=== PATIENT | female | born 1940 | race Caucasian/White ===

== ENCOUNTER 2017-10-17 04:15 | Inpatient (IN) | payer MEDICARE, MEDICAID ==
[2017-10-17 04:58] LABS: Troponin I 0.099 ng/mL (< 0.028)
[2017-10-17 06:33] VITALS: BMI 29.2
[2017-10-17] MEDS ORDERED: Ondansetron ODT 4 MG TAB SL PRN (06:53)
[2017-10-17] MEDS ORDERED: Ondansetron HCl/PF 4 MG/2 ML Vial IVP PRN ×2 (06:53→08:16)
[2017-10-17] MEDS ORDERED: Acetaminophen 325 MG TAB PO PRN (06:53)
[2017-10-17 07:49] LABS: Troponin I 0.412 ng/mL (< 0.028)
[2017-10-17] MEDS ORDERED: Ondansetron ODT 4 MG TAB PO PRN (08:16)
[2017-10-17] MEDS ORDERED: cloNIDine 0.1 MG TAB PO PRN (08:16)
[2017-10-17] MEDS ORDERED: hydrALAZINE 20 MG/ML VIAL SLOW IVP PRN (08:16)
[2017-10-17] MEDS: Famotidine 20 MG TAB PO SCH ×2 (08:53→20:32)
[2017-10-17] MEDS: Aspirin 325 MG TAB PO SCH (08:54)
--- NOTE | 2017-10-17 10:47 | HP ---
DATE OF ADMISSION: 10/17/2017 PRIMARY CARE PHYSICIAN: Dr. Ricci. CHIEF COMPLAINT: Chest and back pain. HISTORY OF PRESENT ILLNESS: This is a 77-year-old female who presents to [facility] Emergency Department in transfer from [facility] where she is a [facility] resident over the last 10 years who complained of sudden chest and mid back pain which awakened her from sleep approximately 1:00 a.m. on 10/17/2017. The patient states the pain was sharp, waking her from sleep, making her to assist with deeper breaths. The patient states she has had intermittent e pisodes similar to this over the last several weeks and has been treated with Maalox and Mylanta as w ell as Tylenol. The patient felt like she was experiencing reflux and heartburn symptoms and was dominique ated with the aforementioned medications. The patient denies any known history of coronary artery di sease or prior cardiac evaluations. The patient does state she has a significant history of intracra nial hemorrhage, likely hypertensive induced, undergoing acute surgical intervention with eventual ve ntriculostomy and IRRIGATOR SPRINKLING SYSTEM shunt placement. The patient was noted with dysphagia, mild aphasia and right-s ided hemiparesis requiring inpatient rehabilitation and subsequent long-term skilled care. The genaro nt has been a current resident of [facility] for approximately 10 years, receiving chey y therapy. The patient has had marked improvement in overall functional status and ambulating with u se of a rolling walker. Eating regular oral diet and overall improving clinically. The patient jayshree es taking chronic or daily aspirin, but has been given aspirin intermittently over the last several m onths. The patient denies any nitroglycerin use, but does state she has had elevated cholesterol lev els as well as hypertension, which has been controlled with medications. The patient did state she h ad associated nausea, shortness of breath and emesis with the chest pain episode. In the emergency r oom, the patient underwent general evaluation with EKG showing a left bundle branch block pattern. T he patient also underwent cardiac enzyme evaluation showing elevating levels between 0.010-0.412. Th e patient currently denies any current chest pain symptoms with stable vital signs. The patient did receive aspirin and nitroglycerin and was referred to the Hospitalist Service for admission. PAST MEDICAL HISTORY: 1. Chronic right hemiparesis, status post intracranial hemorrhage. 2. Hypertension. 3. Hyperlipidemia. 4. History of neurogenic bladder. 5. Gastroesophageal reflux disease. 6. Depression. 7. History of dysphagia, resolved. 8. History of GI bleed secondary to gastric ulcer. PAST SURGICAL HISTORY: 1. Status post PEG tube placement with subsequent removal. 2. Status post appendectomy. 3. Status post cholecystectomy. 4. Status post right frontal andrew hole placement with forward ventriculostomy. 5. Status post inferior tentorial craniotomy with evacuation of cerebellar hematoma 2007. CURRENT MEDICATIONS: Based on review of medication record from [facility]: 1. Lasix 20 mg 1 tab p.o. daily. 2. Norvasc 5 mg 1 tablet p.o. daily. 3. Hydralazine 25 mg 1 tab p.o. b.i.d. 4. Lisinopril 10 mg 1 tab p.o. b.i.d. 5. Metoprolol tartrate 50 mg 1 tab p.o. b.i.d. 6. Potassium chloride 20 mEq 1 tab p.o. b.i.d. 7. Dulcolax suppository 10 mg p.r.n. constipation. 8. Albuterol sulfate nebulized solution b.i.d. p.r.n. 9. Acetaminophen 500 mg 2 tabs p.o. q.4-6 hours p.r.n. 10. MiraLax 17 grams p.o. daily p.r.n. constipation. ALLERGIES: No known drug allergies. FAMILY HISTORY: Sister with coronary artery disease and breast cancer. Multiple brothers with coron shelley artery disease at an early age. SOCIAL HISTORY: The patient is , accompanied by her and [facility]. No current alcohol, tobacco or illicit drug use. Ambulates with use of a rolling walker . REVIEW OF SYSTEMS: The following complete review of systems was negative, unless otherwise mentioned in the HPI or below: Constitutional: Weight loss or gain, ability to conduct usual activities. Skin: Rash, itching. Eyes: Double vision, pain. ENT/Mouth: Nose bleeding, neck stiffness, pain, tenderness. Cardiovascular: Palpitations, dyspnea on exertion, orthopnea. Respiratory: Shortness of breath, wheezing, cough, hemoptysis, fever or night sweats. Gastrointestinal: Poor appetite, abdominal pain, heartburn, nausea, vomiting, constipation, or diarr hea. Genitourinary: Urgency, frequency, dysuria, nocturia. Musculoskeletal: Pain, swelling. Neurologic/Psychiatric: Anxiety, depression. Allergy/Immunologic: Skin rash, bleeding tendency. Otherwise negative except as stated per HPI. PHYSICAL EXAMINATION: VITAL SIGNS: On admission, blood pressure 147/74, pulse 68, respiratory rate 16, temperature 98 degr ees Fahrenheit, O2 saturation 96% on room air. GENERAL APPEARANCE: This is a 77-year-old female, alert and oriented x3, pleasant, convers ant, smiling, in no acute distress. HEENT: Pupils are equal, round, and reactive to light and accommodation. Extraocular muscles are in tact. No scleral icterus, no conjunctival injection. Nares patent. OP is clear. Patient is edentu lous. NECK: Supple, no cervical adenopathy, no thyromegaly, no carotid bruits, no JVD appreciated. Cervic al spine is with full active and passive range of motion. No meningeal signs appreciated. CHEST: Lungs are clear to auscultation bilaterally. CARDIOVASCULAR: S1, S2, without noted murmur. ABDOMEN: Rounded, soft, nontender, nondistended. Bowel sounds are positive in all four quadrants. There is no hepatosplenomegaly, no abdominal bruits, no rebound or guarding appreciated. EXTREMITIES: Warm and dry with good turgor. No clubbing, cyanosis or asymmetric edema appreciated. Pulses palpable distally at the dorsalis pedis, posterior tibial, and popliteal arteries bilaterally . Capillary refill less is than 2 seconds. NEUROLOGIC: Right upper extremity paresis noted. Right lower extremity with full active and passive range of motion. Rest of the cranial nerves II-XII are grossly intact. PERTINENT LABORATORY DATA AND X-RAY FINDINGS: Sodium 146, potassium 4.1, chloride 112, CO2 of 23, BU N 23, creatinine 0.88, estimated GFR 62, glucose 102, calcium 9.2. BNP 91. Troponin I ranged betwee n 0.010-0.412. CBC showed a white blood cell count of 7.5, hemoglobin 13.6, hematocrit 41, platelet count 280 with normal differential. EKG dated 10/17/2017 by my interpretation shows sinus mechanism with heart rates in the 70s. Attenuated R waves noted in the precordial leads. Left bundle branch b lock pattern noted. Normal axis. No acute ST-T wave changes appreciated. ASSESSMENT AND PLAN: 1. Chest pain. The patient will be observed on the telemetry unit. We will consult Cardiology Serv ice given troponin I elevation and potential for unstable angina. Currently, chest pain free. Conor nue aspirin 325 mg p.o. daily. Check fasting lipid profile. N.p.o. except medications and sips of w ater. Nitroglycerin 0.4 mg sublingually p.r.n. chest pain. 2. Elevated troponin I/question of non-ST elevation myocardial infarction. See #1 above. Consult C ardiology Service for evaluation. Likely patient will need left heart catheterization to further del ineate coronary anatomy. 3. Hypertension. Continue serial blood pressure monitoring. Resume home blood pressure regimen. 4. Status post intracranial hemorrhage with right hemiparesis. Stable currently. Continue symptoma tic and supportive management. PT for functional assessment. 5. Question of hyperlipidemia. Check fasting lipid profile. 6. Prophylaxis. Sequential compression devices while in bed. Pepcid 20 mg p.o. b.i.d. 7. Code status is FULL. Surrogate medical decision maker is patient's spouse.
[2017-10-17 11:15] LABS: Troponin I 0.542 ng/mL (< 0.028)
--- NOTE | 2017-10-17 11:59 | CON ---
DATE OF CONSULTATION: 10/17/2017 REASON FOR CONSULTATION: Chest pain, elevated troponin and symptoms suggesting unstable angina. HISTORY OF PRESENT ILLNESS: Ms. Ornelas is a very pleasant 77-year-old woman with no previous cardi ac history. She recently presented with chest pain. States the chest pain episode lasted 2 hours. It was relieved with aspirin. She did have associated nausea, vomiting, and shortness of breath. Afshin blackburn is currently asymptomatic. She also had a left bundle branch block. PAST MEDICAL HISTORY: Hypertension, brain trauma with surgery resulting in permanent left-sided sheba paresis after intracranial hemorrhage 11 years ago, hypertension, hyperlipidemia, acid reflux, depres mode, GI bleed and dysphagia. PAST SURGICAL HISTORY: Appendectomy, cholecystectomy, previous andrew hole with ventriculostomy. HOME MEDICATIONS: Include Lasix, Norvasc, hydralazine, lisinopril, metoprolol, potassium, Dulcolax, albuterol, acetaminophen, MiraLax. ALLERGIES: None. SOCIAL HISTORY: Currently . She currently resides in a care center. REVIEW OF SYSTEMS: Ten-point review of systems is reviewed and as above, otherwise negative. PHYSICAL EXAMINATION: GENERAL: Patient is a pleasant male who is in no acute distress. The patient appears in her stated age. VITAL SIGNS: Blood pressure 108/64, pulse 71, temperature 98.4. NEUROLOGIC: Left-sided upper and lower weakness. HEENT: Sclerae without icterus. Mouth has moist mucous membranes with normal pallor. NECK: No JVD. Carotid upstroke brisk. No bruits bilaterally. LUNGS: Clear to auscultation with unlabored respirations. BACK: No scoliosis or kyphosis. CARDIAC: Regular rate and rhythm with normal S1 and S2. No S3 or S4 noted. No significant rubs, murmurs, thrills, or gallops noted throughout the precordium. PMI is not displa davidson. There is no parasternal heave. ABDOMEN: Soft, nontender, nondistended. No peritoneal signs present. No hepatosplenomegaly. No ab normal striae. EXTREMITIES: 2+ femoral and 2+ dorsalis pedis pulses. No cyanosis, clubbing, or edema. SKIN: No gross abnormalities. PERTINENT LABORATORY DATA AND IMAGING DATA: Peak troponin 0.542. EKG showed left bundle branch bloc k. IMPRESSION: 1. Unstable angina. 2. Left bundle branch block. 3. Hypertension. 4. Previous history of intracranial bleed. RECOMMENDATIONS: At this point, her symptoms are strongly suggestive of unstable angina. She did skelton ve documented left bundle branch block 10 years ago. She was seen and evaluated by Dr. Dung paredes at that time. Would recommend coronary angioplasty plus PCI. I discussed the procedure in full d etail. The risks included but not limited to the following: , stroke, LA, need for emergency s urgery, loss of limb, bleeding, and infection, as well as a reaction to the dye causing kidney failur e and needing long-term dialysis. Other risks include acute stent thrombosis and restenosis, vessel d issection, perforation, need for emergency surgery in addition to distal embolization causing chronic foot discomfort as well as amputation. I also discussed drug-coated versus nondrug coated stent earlene cement. There are no contraindications for Plavix therapy. We will discuss with Neuro employee communications coordinator to ciro melara anticoagulation therapy is not contraindicated. She did have cerebral hemorrhage. Recommendation s pending the above.
[2017-10-17] MEDS ORDERED: Nitroglycerin 2% Ointment 1 INCH/1 GM Packet TOP SCH (14:00)
--- NOTE | 2017-10-17 15:50 | CT ---
CT BRAIN: Date: 10/17/17 PROVIDED CLINICAL HISTORY: History of intracerebral hemorrhage. FINDINGS: Comparison made with the examination performed 11/25/07. The ventricular system is nondilated. Right parietal ventriculostomy catheter is again noted. Extensi ve encephalomalacia is noted involving the right cerebral hemisphere. Postoperative changes are seen involving the occipital skull in the midline. There is no evidence for intracranial hemorrhage or mas s effect. Chronic white matter ischemic changes are redemonstrated. The osseous structures demonstrat e no concerning osteoblastic or osteolytic lesions. IMPRESSION: No evidence for intracranial hemorrhage or mass effect. POS: [facility]
[2017-10-17] MEDS: Carvedilol 6.25 MG TAB PO SCH (20:32)
[2017-10-17] MEDS: Enoxaparin Sodium 80 MG/0.8 ML SYRINGE SC SCH (20:34)
[2017-10-18 04:59] LABS: Anion Gap 10 mmol/L (10-20); BUN (Urea Nitrogen) 17 mg/dL (9.8-20.1); Calc. Creatinine Clearance 77 mL/min (70-130); Calcium 8.8 mg/dL (7.8-10.44); Carbon Dioxide 25 mmol/L (23-31); Chloride 112 mmol/L (98-107); Estimated GFR-MDRD 68; Glucose 99 mg/dL (83-110); Potassium 3.7 mmol/L (3.5-5.1); Sodium 143 mmol/L (136-145)
[2017-10-18 05:25] LABS: Band 1 % (5-11); Eosinophils 2 % (0-10); Hemoglobin 12.1 g/dL (12.0-16.0); Lymphocytes 52 % (21-51); MDiff Complete? YES; Mean Corpuscular HGB CONC 33.7 g/dL (32.0-36.0); Mean Corpuscular Hemoglobin 33.2 pg (27.0-31.0); Mean Corpuscular Volume 98.6 fl (81.0-99.0); Mean Platelet Volume 6.9 fL (7.4-10.4); Monocytes 8 % (0-10); Neutrophil 36 % (42-75); PLT Morphology Comment Appears Adequate; Platelet Count 229 thou/uL (130-400); RBC Distribution Width 12.1 % (11.5-14.5); RBC Morphology Normal; Reactive Lymphocytes 1 % (0-10); Red Blood Cell (RBC) Count 3.63 mill/uL (4.20-5.40); White Blood Cell (WBC) Count 6.4 thou/uL (4.8-10.8)
--- NOTE | 2017-10-18 07:55 | PDOC.PN ---
- Subjective Encounter Start Date: 10/18/17 Encounter Start Time: 07:40 Subjective: f/u for unstable angina and ?NSTEMI. Plan for heart cath and PCI currently -: on Lovenox, Coreg, ASA. No current sx or CP. - Objective MAR Reviewed: Yes Vital Signs & Weight: Vital Signs (12 hours) Temp Pulse Resp BP Pulse Ox 10/18/17 04:00 98.4 F 68 18 111/72 96 10/18/17 00:00 98.2 F 75 16 126/73 93 L 10/17/17 20:50 98.2 F 70 16 97 10/17/17 20:30 70 148/97 H 10/17/17 20:16 97 10/17/17 19:46 98.2 F 73 16 97 Weight Weight 188 lb I&O: 10/17/17 10/18/17 10/19/17 05:59 06:59 06:59 Intake Total Balance Result Diagrams: 10/18/17 04:27 10/18/17 04:27 Additional Labs: Laboratory Tests 10/17/17 10/17/17 10/17/17 04:25 07:05 10:34 Troponin I 0.099 H 0.412 H* 0.542 H* Radiology Reviewed by me: Yes (2D echo - EF 50-55%, diast dysfxn, hypokinetic inf wall) EKG Reviewed by me: Yes (Tele - SR with LBBB(old)) Phys Exam - Physical Examination Constitutional: NAD HEENT: PERRLA, oral pharynx no lesions Neck: no JVD, supple Respiratory: no wheezing, clear to auscultation bilateral Cardiovascular: RRR Gastrointestinal: soft, non-tender, no distention, positive bowel sounds Musculoskeletal: no edema, pulses present RUE paresis(chronic) Neurological: normal sensation, moves all 4 limbs Psychiatric: A&O x 3 Skin: normal turgor, cap refill <2 seconds Dx/Plan (1) Unstable angina Status: Acute Comment: Continue Lovenox, ASA, Coreg, plan for heart catheterization and ?PCI likely 10/19/17 (2) NSTEMI (non-ST elevated myocardial infarction) Code(s): I21.4 - NON-ST ELEVATION (NSTEMI) MYOCARDIAL INFARCTION Status: Acute Comment: See #1 (3) Dyslipidemia Code(s): E78.5 - HYPERLIPIDEMIA, UNSPECIFIED Status: Chronic Comment: Lipid profile this am, Lipitor 40mg HS (4) HTN (hypertension) Code(s): I10 - ESSENTIAL (PRIMARY) HYPERTENSION Status: Chronic Qualifiers: Hypertension type: essential hypertension Qualified Code(s): I10 - Essential (primary) hypertension Comment: Stable currently, adjust BP regimen prior to d/c (5) History of intracranial hemorrhage Code(s): Z86.79 - PERSONAL HISTORY OF OTHER DISEASES OF THE CIRCULATORY SYSTEM Status: Chronic Comment: s/p ICH 10 years ago, stable currently - Plan plan discussed w/ family, marriage and family social worker, out of bed/ambulate, DVT proph w/SCDs Continue Lovenox 80mg sc q12h -: Continue ASA 325mg daily -: Lipitor 40mg HS -: Plan for heart cath in 24h -: AM lab: BMP * .
[2017-10-18 08:25] LABS: Cardiac Risk 4.8 (Less than 4.5)
[2017-10-18] MEDS: Aspirin 325 MG TAB PO SCH (08:30)
[2017-10-18] MEDS: Carvedilol 6.25 MG TAB PO SCH ×2 (08:30→21:59)
[2017-10-18] MEDS: Famotidine 20 MG TAB PO SCH ×2 (08:30→21:59)
[2017-10-18] MEDS: Enoxaparin Sodium 80 MG/0.8 ML SYRINGE SC SCH ×2 (08:30→21:59)
--- NOTE | 2017-10-18 13:06 | CON ---
DATE OF SERVICE: 10/18/2017 SUBJECTIVE: Ms. Ornelas is doing well. No chest pain or pressure noted. CT scan of the head was n egative for bleed or abnormalities. OBJECTIVE: VITAL SIGNS: Blood pressure 152/77, pulse 77, temperature 98.5. LUNGS: Clear to auscultation. CARDIAC: Regular rate and rhythm. ABDOMEN: Soft, nontender and nondistended. EXTREMITIES: No edema. IMPRESSION: Non-Q wave myocardial infarction. RECOMMENDATIONS: Proceed with angiography in the morning. We will proceed with a drug-coated stent if needed. Further recommendations pending the above.
[2017-10-18] MEDS ORDERED: Communication Order-Pharmacy FS SCH (16:15)
[2017-10-18] MEDS ORDERED: Iopamidol 370 76% 100 ML VIAL ONE (16:48)
[2017-10-18] MEDS ORDERED: Iopamidol 370 76% 50 ML VIAL FS ONE (16:48)
[2017-10-18] MEDS: Nitroglycerin 0.4 MG TAB (25 Tab Bottle) PO PRN ×2 (18:47→18:51)
[2017-10-18] MEDS: Sodium Chloride 0.9% 1,000 ML IV SCH (18:48)
--- NOTE | 2017-10-18 19:13 | PDOC.EVN ---
Event Note - Event Note Event Note: Patient was Called calli isbell at 1850, and Paient was c/o chest pain and monitor showed Torsade , pt started vomiting and lost her pulse, She was given a Defibrillator shock and 2 gm of Magnesium was given , Dr. Bishop came to the Code and discussed with lalo and Activated the trestle mainternance laborer for emergent cath. pt got intubated and her pulse was back after the shock. No CPR was needed. Pt was awake and did not loose her consciousness.
[2017-10-18] MEDS ORDERED: Midazolam HCl 2 mg/2 ml Vial ONE (19:45)
[2017-10-18] MEDS ORDERED: Nitroglycerin 50 MG/250 ML BOT 250 ML ONE (19:47)
[2017-10-18] MEDS ORDERED: Nitroglycerin 100MG/250ML BOT 250 ML ONE (19:48)
[2017-10-18] MEDS ORDERED: Heparin 10,000 UNITS/1 ML VIAL ONE (19:58)
[2017-10-18] MEDS ORDERED: Metoprolol Tartrate 5 MG/5 ML VIAL ONE (19:59)
[2017-10-18] MEDS ORDERED: Clopidogrel Bisulfate 300 MG TAB ONE (20:17)
[2017-10-18] MEDS ORDERED: Sodium Chloride 0.9% 1,000 ML IV SCH (20:30)
[2017-10-18] MEDS ORDERED: Propofol 1,000 MG/100 ML VIAL IV ONE (20:44)
[2017-10-18] MEDS ORDERED: Atropine Sulfate 1 mg/10 ml Syringe ONE (20:50)
[2017-10-18] MEDS ORDERED: Magnesium 5 GM/10 ML Abboject SYRINGE ONE (20:50)
[2017-10-18] MEDS ORDERED: Calcium Chloride 1 GM/10 ML Abboject SYRINGE ONE (20:50)
[2017-10-18 21:10] LABS: Albumin 3.7 g/dL (3.4-4.8)
[2017-10-18 21:12] LABS: Calcium 8.3 mg/dL (7.8-10.44); Chloride 113 mmol/L (98-107); Potassium 3.1 mmol/L (3.5-5.1); Sodium 144 mmol/L (136-145)
[2017-10-18 21:13] LABS: Globulin 3.5 g/dL (2.4-3.5); Glucose 156 mg/dL (83-110); Protein, Total 7.2 g/dL (6.0-8.3)
[2017-10-18 21:14] LABS: Anion Gap 16 mmol/L (10-20); Carbon Dioxide 18 mmol/L (23-31)
[2017-10-18 21:15] LABS: Bilirubin, Total 1.1 mg/dL (0.2-1.2)
[2017-10-18 21:16] LABS: Alkaline Phosphatase 126 U/L (40-150); Calc. Creatinine Clearance 78 mL/min (70-130); Estimated GFR-MDRD 69
[2017-10-18 21:17] LABS: BUN (Urea Nitrogen) 14 mg/dL (9.8-20.1)
[2017-10-18 21:18] LABS: AST (SGOT) 129 U/L (5-34)
[2017-10-18 21:19] LABS: ALT (SGPT) 119 U/L (8-55)
[2017-10-18 21:22] LABS: Actual Bicarbonate (HCO3a) 18.3 mEq/L (22-26); CO2 Tension 26.7 mmHg (35.0-45.0); pH, Arterial 7.45 (7.35-7.45)
[2017-10-18 21:22] LABS: CKMB 4.6 ng/mL (0-6.6)
[2017-10-18 21:23] LABS: Base Excess (BEa) -4.1 mEq/L (0 (+/-) 2.5); Calcium, Ionized 1.1 mmol/L (1.12-1.30); Hematocrit-ABG 40.1 % (36.0-47.0); Hemoglobin (Hb) 13.6 g/dL (12.0-16.0); Puncture Site LINE
[2017-10-18 21:24] LABS: ALV-art Gradient 299.625 (0-20)
[2017-10-18 21:26] LABS: Troponin I 0.307 ng/mL (< 0.028)
--- NOTE | 2017-10-18 21:33 | PRG ---
CRITICAL CARE NOTE Ms. Ornelas went into torsades today. CODE was called. She was given epinephrine and was resuscita sha successfully. She was intubated for protection of airway. Given elevated troponin and symptoms suggesting angina with nausea, vomiting, and chest pain upon pre sentation I would decide to proceed with urgent coronary angiography with possible PCI. Angiography suggested diffuse disease present. She had an LAD with diffuse 50% stenosis with calcifi cation present. There was a focal area of 80% stenosis with significant tortuosity present. The OM branch also has diffuse disease. There was an OM branch that appeared occluded at the ostium with co llaterals noted from the LAD. This was not felt to be approachable percutaneously due to the locatio n of the lesion and compromise of a very large circumflex artery. The right coronary artery also had 90% stenosis in the proximal region, but also appeared very small. Successful stent placement was n oted to the LAD. The patient was transferred to the ICU in a critical guarded condition.
[2017-10-18] MEDS ORDERED: Lorazepam 2 MG/ML VIAL SLOW IVP PRN (21:41)
[2017-10-18] MEDS ORDERED: DISCONTINUE PREVIOUS NARCOTIC PAIN MEDICATIONS AND BENZODIAZEPINES FS SCH (21:41)
[2017-10-18] MEDS ORDERED: fentaNYL Citrate/PF 2,000 MCG in Sodium Chloride 0.9% 60 ML IV SCH (21:41)
[2017-10-18] MEDS ORDERED: Morphine 2 MG/ML SYRINGE SLOW IVP PRN (21:41)
[2017-10-18] MEDS ORDERED: Propofol 1,000 MG/100 ML VIAL IV PRN (21:41)
[2017-10-18] MEDS ORDERED: Esmolol 2,500 MG/NS 250 ML 250 ML IVPB SCH (21:45)
[2017-10-18] MEDS: Atorvastatin Calcium 40 MG TAB PO SCH (21:59)
[2017-10-19] MEDS ORDERED: Potassium Chloride 40 MEQ in Sodium Chloride 0.9% 250 ML 250 ML IVPB SCH (02:00)
[2017-10-19 04:01] LABS: #Eosinphils 0.1 thou/uL (0.0-0.7); #Lymphocytes 1.9 thou/uL (1.20-3.40); #Monocytes 1.4 thou/uL (0.11-0.59); #Neutrophils 7.3 thou/uL (1.40-6.50); %Basophils 0.1 % (0.0-1.0); %Eosinophils 0.5 % (0.0-10.0); %Monocytes 12.8 % (0.0-10.0); %Neutrophils 68.6 % (42.0-75.0); Hemoglobin 12.5 g/dL (12.0-16.0); Mean Corpuscular HGB CONC 35.1 g/dL (32.0-36.0); Mean Corpuscular Hemoglobin 33.5 pg (27.0-31.0); Mean Corpuscular Volume 95.4 fl (81.0-99.0); Mean Platelet Volume 6.6 fL (7.4-10.4); Platelet Count 286 thou/uL (130-400); RBC Distribution Width 12.2 % (11.5-14.5); Red Blood Cell (RBC) Count 3.73 mill/uL (4.20-5.40); White Blood Cell (WBC) Count 10.6 thou/uL (4.8-10.8)
[2017-10-19 04:06] LABS: ALT (SGPT) 95 U/L (8-55); AST (SGOT) 83 U/L (5-34); Albumin 3.4 g/dL (3.4-4.8); Alkaline Phosphatase 106 U/L (40-150); Anion Gap 12 mmol/L (10-20); BUN (Urea Nitrogen) 14 mg/dL (9.8-20.1); Bilirubin, Total 0.6 mg/dL (0.2-1.2); Calc. Creatinine Clearance 73 mL/min (70-130); Calcium 8.2 mg/dL (7.8-10.44); Carbon Dioxide 20 mmol/L (23-31); Chloride 116 mmol/L (98-107); Estimated GFR-MDRD 64; Globulin 3.1 g/dL (2.4-3.5); Glucose 134 mg/dL (83-110); Potassium 4.2 mmol/L (3.5-5.1); Protein, Total 6.5 g/dL (6.0-8.3); Sodium 144 mmol/L (136-145)
[2017-10-19 04:14] LABS: CKMB 12.4 ng/mL (0-6.6); Troponin I 2.851 ng/mL (< 0.028)
[2017-10-19] MEDS ORDERED: Nitroglycerin 50 MG/250 ML BOT 250 ML IVPB SCH (05:00)
[2017-10-19] MEDS: Carvedilol 6.25 MG TAB PO SCH ×2 (08:10→20:33)
[2017-10-19] MEDS: Famotidine 20 MG TAB PO SCH ×2 (08:10→20:34)
[2017-10-19] MEDS: Clopidogrel Bisulfate 75 MG TAB PO SCH (08:10)
[2017-10-19] MEDS: Aspirin 325 MG TAB PO SCH (08:10)
--- NOTE | 2017-10-19 08:53 | RAD ---
CHEST 1 VIEW: HISTORY: Dyspnea. Intubated. COMPARISON: 10/17/17. FINDINGS: Cardiac silhouette is magnified and enlarged. Pulmonary vasculature is unremarkable. Mediastinum is midline with aortic calcification. The tip of an endotracheal catheter overlies the thoracic inlet. Nasogastric tube descends to the stomach. manager of software leads overlie the chest. IMPRESSION: Endotracheal catheter and nasogastric tube are in good radiographic position. POS: [facility]
--- NOTE | 2017-10-19 09:45 | PDOC.PN ---
- Subjective Encounter Start Date: 10/19/17 Encounter Start Time: 09:43 Subjective: no chest pain. post cath, PCI to LAD - Objective MAR Reviewed: Yes Vital Signs & Weight: Vital Signs (12 hours) Temp Pulse Resp BP Pulse Ox 10/19/17 09:30 83 24 H 97 10/19/17 08:10 123/54 L 10/19/17 08:00 99.2 F 16 10/19/17 07:42 96 10/19/17 07:36 85 123/54 L 10/19/17 06:00 14 10/19/17 04:00 97.9 F 14 10/19/17 02:00 14 10/19/17 00:00 97.6 F 14 10/18/17 22:00 14 145/81 H 10/18/17 21:59 137/80 Weight Weight 191 lb 9.307 oz Most Recent Monitor Data Heart Rate from ECG 82 NIBP 107/53 NIBP BP-Mean 69 Respiration from ECG 17 SpO2 95 I&O: 10/18/17 10/19/17 10/20/17 06:59 06:59 06:59 Intake Total 1910 Output Total 1910 65 Balance 0 -65 Result Diagrams: 10/19/17 03:32 10/19/17 03:32 Phys Exam - Physical Examination Neck: no JVD Respiratory: clear to auscultation bilateral Cardiovascular: RRR, no significant murmur Gastrointestinal: soft, positive bowel sounds Musculoskeletal: edema present Dx/Plan (1) CAD (coronary artery disease) of artery bypass graft Code(s): I25.810 - ATHEROSCLEROSIS OF CABG W/O ANGINA PECTORIS Status: Acute Qualifiers: [place] vs. transplanted heart: [place] heart Associated angina: with unstable angina Qualified Code(s): I25.700 - Atherosclerosis of coronary artery bypass graft(s), unspecified, with unstable angina pectoris (2) Torsades de pointes Code(s): I47.2 - VENTRICULAR TACHYCARDIA Status: Acute (3) Hematuria Code(s): R31.9 - HEMATURIA, UNSPECIFIED Status: Acute Qualifiers: Hematuria type: unspecified type Qualified Code(s): R31.9 - Hematuria, unspecified (4) NSTEMI (non-ST elevated myocardial infarction) Code(s): I21.4 - NON-ST ELEVATION (NSTEMI) MYOCARDIAL INFARCTION Status: Acute Comment: See #1 (5) Unstable angina Status: Acute Comment: Continue Lovenox, ASA, Coreg, plan for heart catheterization and ?PCI likely 10/19/17 (6) Dyslipidemia Code(s): E78.5 - HYPERLIPIDEMIA, UNSPECIFIED Status: Chronic Comment: Lipid profile this am, Lipitor 40mg HS (7) HTN (hypertension) Code(s): I10 - ESSENTIAL (PRIMARY) HYPERTENSION Status: Chronic Qualifiers: Hypertension type: essential hypertension Qualified Code(s): I10 - Essential (primary) hypertension Comment: Stable currently, adjust BP regimen prior to d/c - Plan cont ASA, statin, coreg -: discuss with cardiology -: PT/PTT/ urine C&S * .
[2017-10-19 10:52] LABS: INR-International Normal Ratio 1.1; PTT 37.8 SEC (22.9-36.1); Prothrombin Time 14.8 SEC (12.0-14.7)
[2017-10-19 10:53] LABS: Glucose, Urine (Dipstick) Negative (Negative); Protein, Urine (Dipstick) 100 mg/dL (Neg-Trace)
[2017-10-19 10:54] LABS: Clarity Opaque (Clear)
[2017-10-19 11:01] LABS: Bilirubin Unable to Interpret (Negative); Nitrite Unable to Interpret (Negative)
[2017-10-19 11:02] LABS: Blood, Urine Large (Negative); Leukocyte Moderate (Negative)
--- NOTE | 2017-10-19 11:03 | PRG ---
DATE OF SERVICE: 10/19/2017 Ms. Ornelas is doing well. No current complaints. She is currently awake, but still intubated. Sh e is following commands normally. Peak troponin was 2. PHYSICAL EXAMINATION: VITAL SIGNS: Blood pressure 122/47, pulse 70. Temperature afebrile. LUNGS: Clear to auscultation. CARDIAC: Regular rate and rhythm. ABDOMEN: Soft, nontender, nondistended. EXTREMITIES: No edema. PERTINENT LABS: Hemoglobin 12.5. Peak troponin 2.8 with CK-MB of 12.4, creatinine 0.8. IMPRESSION: 1. Torsades de pointes. 2. Coronary artery disease. 3. Status post stent placement. RECOMMENDATIONS: Ms. Ornelas did have a fairly significant episode of torsades de pointes. This ma y have been ischemic driven. A stent to the LAD was performed. The LAD does have collaterals noted to have an occluded large OM branch. Her magnesium and potassium level are within normal limits. She was not bradycardic during the episo de. It may be prudent to proceed with LifeVest. She will likely qualify given her recent event. Wi ll order a LifeVest for patient. She has had hematuria, and will continue to monitor. This may have been due to heparin. We will continue Plavix, carvedilol, atorvastatin and aspirin. One of my colleagues will follow in my absence.
[2017-10-19 11:04] LABS: RBC/HPF GREATER THAN 50-TNTC HPF (0-3); pH, Urine 7.5 (5.0-9.0)
[2017-10-19 11:05] LABS: Bacteria/HPF 2+ HPF (None Seen); Hyaline Casts/LPF NONE SEEN LPF (0-3 Hyaline); Squamous Epithelial 0-3 HPF (0-3)
--- NOTE | 2017-10-19 13:35 | CON ---
DATE OF CONSULTATION: 10/19/2017 Ms. Ornelas is a 77-year-old female who had torsades and was intubated. I was consulted to assist i n her ICU management. She was awake and alert when I evaluated her this morning. She had a coronary stent placed yesterday. She still had some rhythm disturbances. She has been hem odynamically stable, however. PAST MEDICAL HISTORY: 1. Hypertension. 2. History of left hemiparesis from an intracranial hemorrhage. 3. History of hypertension. 4. History of hyperlipidemia. 5. History of reflux disease. 6. Gastrointestinal bleed in the past. 7. History of an appendectomy. 8. History of a cholecystectomy. 9. History of a andrew hole and ventriculostomy. SOCIAL HISTORY: She is nonsmoker, nondrinker, does not use drugs. ALLERGIES: She has no drug allergies. FAMILY HISTORY: Negative for lung disease at an early age. MEDICATIONS: Prior to admission, she was on Lasix, Norvasc, hydralazine, lisinopril, metoprolol, pot assium, Dulcolax, albuterol and MiraLax. REVIEW OF SYSTEMS: Twelve point review of systems not obtainable. Her was in the room and h is report of the review of systems was negative. PHYSICAL EXAMINATION: GENERAL: She is very pleasant, in no distress. VITAL SIGNS: She is afebrile, heart rate 76, blood pressure 107/46, respiratory rates in the teens. HEENT: Pupils are equal. Sclerae is anicteric. LUNGS: Clear. HEART: Regular rhythm. S1 and S2 are normal. ABDOMEN: Soft and nontender. EXTREMITIES: No clubbing, cyanosis, or edema. She does move her right upper extremity. NEURO: Otherwise, her neurological exam is nonfocal. LABORATORY AND X-RAY FINDINGS: Chest radiograph is clear. I reviewed this. White count is 10.6, hemoglobin 12.5, platelets 286. Sodium 144, potassium 4.2, chloride 116, bicarb torito 20, BUN 14, creatinine 0.86. IMPRESSION AND PLAN: Status post torsades with intubation. She is clinically stable at this point i n time. Cardiology is comfortable with extubating her. She met criteria for extubation. This has s ubsequently been done. We will continue to watch her in the Critical Care Unit. Critical care time 30 minutes.
[2017-10-19] MEDS: Sodium Chloride 0.9% 1,000 ML IV SCH (14:19)
[2017-10-19] MEDS: Atorvastatin Calcium 40 MG TAB PO SCH (20:34)
[2017-10-20] MEDS: Sodium Chloride 0.9% 1,000 ML IV SCH ×2 (02:10→06:17)
--- NOTE | 2017-10-20 08:58 | PDOC.PN ---
- Subjective Encounter Start Date: 10/20/17 Encounter Start Time: 08:56 Subjective: alert, no chest pain or sob - Objective MAR Reviewed: Yes Vital Signs & Weight: Vital Signs (12 hours) Temp Pulse Ox 10/20/17 07:00 98.4 F 10/20/17 04:00 98.8 F 10/20/17 02:53 93 L 10/20/17 00:00 98.9 F Weight Weight 193 lb 5.526 oz Most Recent Monitor Data Heart Rate from ECG 94 NIBP 147/77 NIBP BP-Mean 90 Respiration from ECG 19 SpO2 92 I&O: 10/19/17 10/20/17 10/21/17 06:59 06:59 06:59 Intake Total 0 3050 Output Total 1910 635 175 Balance 0 2415 -175 Result Diagrams: 10/19/17 03:32 10/19/17 03:32 Phys Exam - Physical Examination Constitutional: NAD Neck: no JVD Respiratory: clear to auscultation bilateral Cardiovascular: RRR, no significant murmur Gastrointestinal: soft, positive bowel sounds Musculoskeletal: no edema Dx/Plan (1) CAD (coronary artery disease) of artery bypass graft Code(s): I25.810 - ATHEROSCLEROSIS OF CABG W/O ANGINA PECTORIS Status: Acute Qualifiers: [place] vs. transplanted heart: [place] heart Associated angina: with unstable angina Qualified Code(s): I25.700 - Atherosclerosis of coronary artery bypass graft(s), unspecified, with unstable angina pectoris (2) Torsades de pointes Code(s): I47.2 - VENTRICULAR TACHYCARDIA Status: Acute (3) Hematuria Code(s): R31.9 - HEMATURIA, UNSPECIFIED Status: Acute Qualifiers: Hematuria type: unspecified type Qualified Code(s): R31.9 - Hematuria, unspecified (4) NSTEMI (non-ST elevated myocardial infarction) Code(s): I21.4 - NON-ST ELEVATION (NSTEMI) MYOCARDIAL INFARCTION Status: Acute Comment: See #1 (5) Unstable angina Status: Acute Comment: Continue Lovenox, ASA, Coreg, plan for heart catheterization and ?PCI likely 10/19/17 (6) Dyslipidemia Code(s): E78.5 - HYPERLIPIDEMIA, UNSPECIFIED Status: Chronic Comment: Lipid profile this am, Lipitor 40mg HS (7) HTN (hypertension) Code(s): I10 - ESSENTIAL (PRIMARY) HYPERTENSION Status: Chronic Qualifiers: Hypertension type: essential hypertension Qualified Code(s): I10 - Essential (primary) hypertension Comment: Stable currently, adjust BP regimen prior to d/c - Plan urine still pink, PT/PTT normal, urine C&S neg so far. junior Camarena -: cont asa, statin, coreg, plavix -: move to tele?, discuss with cardiology * .
[2017-10-20] MEDS: Aspirin 325 MG TAB PO SCH (09:42)
[2017-10-20] MEDS: Clopidogrel Bisulfate 75 MG TAB PO SCH (09:42)
[2017-10-20] MEDS: Carvedilol 6.25 MG TAB PO SCH ×2 (09:43→21:16)
[2017-10-20] MEDS: Famotidine 20 MG TAB PO SCH (09:43)
--- NOTE | 2017-10-20 10:52 | PRG ---
DATE OF SERVICE: 10/20/2017 SERVICE: Pulmonary Medicine INTERVAL HISTORY: The patient is doing great from a cardiovascular and respiratory standpoint. She denies any chest pain or shortness of breath. Otherwise, there has been no interval change to her co ndition. She is breathing comfortably on room air. She is sitting in a bedside chair and demonstrat es improving strength. She is not quite back to baseline, but she is moving in that direction. Ther e were no overnight events. PHYSICAL EXAMINATION: VITAL SIGNS: Afebrile, pulse 81, blood pressure 134/54, respirations 22, saturation 94% on room air. GENERAL: The patient is awake, alert, in no apparent distress. LUNGS: Excellent air entry. Minimal dependent crackles are present. There is no prolonged expirato ry phase or wheezing. HEART: Normal rate, regular. ABDOMEN: Soft, nontender, nondistended. Bowel sounds are positive. MUSCULOSKELETAL: No cyanosis or clubbing. There is 2+ pitting in the bilateral lower extremities, w hich appears to be much improved. NEUROLOGIC: Grossly nonfocal. GENITOURINARY: Cedillo catheter in place. LABORATORY: Troponin went up to 2.85. Urine culture is negative. ASSESSMENT: 1. Coronary artery disease, status post percutaneous coronary intervention. 2. Torsades de pointes, resolved. 3. Acute hypoxic respiratory failure secondary to ventricular tachycardia arrest, resolved. PLAN: The patient is doing fantastic at this time. She had no significant events overnight on the t elemetry monitor. As such, we will transition her out of the ICU to the telemetry floor. Pulmonary Critical Care will continue to follow while the patient remains in this location.
[2017-10-20] MEDS: Atorvastatin Calcium 40 MG TAB PO SCH (21:16)
[2017-10-21] MEDS: Acetaminophen 500 MG TAB PO PRN ×3 (01:40→16:16)
--- NOTE | 2017-10-21 07:37 | PDOC.PN ---
- Subjective Encounter Start Date: 10/21/17 Encounter Start Time: 07:36 Subjective: cant sleep with lifevest - Objective MAR Reviewed: Yes Vital Signs & Weight: Vital Signs (12 hours) Temp Pulse Resp BP BP Pulse Ox 10/21/17 04:49 98.2 F 87 18 136/62 94 L 10/20/17 21:40 97.6 F 102 H 16 10/20/17 21:30 99.4 F 90 16 154/66 H 96 10/20/17 21:16 134/54 L Weight Weight 195 lb 3.2 oz Most Recent Monitor Data Heart Rate from ECG 86 NIBP 128/77 NIBP BP-Mean 83 Respiration from ECG 18 SpO2 95 I&O: 10/20/17 10/21/17 10/22/17 06:59 06:59 06:59 Intake Total 3050 720 Output Total 635 365 Balance 2415 355 Result Diagrams: 10/19/17 03:32 10/19/17 03:32 Phys Exam - Physical Examination Neck: no JVD Respiratory: clear to auscultation bilateral Cardiovascular: RRR, no significant murmur Gastrointestinal: soft, non-tender, positive bowel sounds Musculoskeletal: no edema, pulses present Dx/Plan (1) CAD (coronary artery disease) of artery bypass graft Code(s): I25.810 - ATHEROSCLEROSIS OF CABG W/O ANGINA PECTORIS Status: Acute Qualifiers: [place] vs. transplanted heart: [place] heart Associated angina: with unstable angina Qualified Code(s): I25.700 - Atherosclerosis of coronary artery bypass graft(s), unspecified, with unstable angina pectoris (2) Torsades de pointes Code(s): I47.2 - VENTRICULAR TACHYCARDIA Status: Acute (3) Hematuria Code(s): R31.9 - HEMATURIA, UNSPECIFIED Status: Acute Qualifiers: Hematuria type: unspecified type Qualified Code(s): R31.9 - Hematuria, unspecified (4) NSTEMI (non-ST elevated myocardial infarction) Code(s): I21.4 - NON-ST ELEVATION (NSTEMI) MYOCARDIAL INFARCTION Status: Acute Comment: See #1 (5) Unstable angina Status: Acute Comment: Continue Lovenox, ASA, Coreg, plan for heart catheterization and ?PCI likely 10/19/17 (6) Dyslipidemia Code(s): E78.5 - HYPERLIPIDEMIA, UNSPECIFIED Status: Chronic Comment: Lipid profile this am, Lipitor 40mg HS (7) HTN (hypertension) Code(s): I10 - ESSENTIAL (PRIMARY) HYPERTENSION Status: Chronic Qualifiers: Hypertension type: essential hypertension Qualified Code(s): I10 - Essential (primary) hypertension Comment: Stable currently, adjust BP regimen prior to d/c - Plan cont asa,statin, coreg, plavix, etc -: discuss with cardiology -: DC today? * .
[2017-10-21] MEDS: Aspirin 325 MG TAB PO SCH (08:37)
[2017-10-21] MEDS: Carvedilol 6.25 MG TAB PO SCH (08:37)
[2017-10-21] MEDS: Clopidogrel Bisulfate 75 MG TAB PO SCH (08:37)
--- NOTE | 2017-10-21 08:55 | PQF ---
CLINICAL DOCUMENTATION IMPROVEMENT CLARIFICATION FORM: ICD-10 Updated PLEASE DO AN ADDENDUM TO THE PROGRESS NOTE WITH ANY DOCUMENTATION UPDATES OR ADDITIONS AND CARRY THROUGH TO DC SUMMARY. THANK YOU. DATE: 10/21 ATTN: DR. JEOVANNY HUGO Please exercise your independent, professional judgment in responding to the clarification form. Clinical indicators are provided on the bottom of this form for your review. Please check appropriate box(s): Conflicting documentation was noted in the Medical Record, please clarify if patient is being treated/monitored for: [ x ] INTUBATED FOR PROTECTION OF AIRWAY DURING CODE BLUE [ ] ACUTE HYPOXIC RESPIRATORY FAILURE 2/2 V-TACH ARREST [ ] Other diagnosis [ ] Unable to determine For continuity of documentation, please document condition throughout progress notes and discharge summary. Thank You. CLINICAL INDICATORS - SIGNS / SYMPTOMS/ LABS CARDIOLOGY PN 10/18: MS. LOPEZ WENT INTO [place] TODAY. CODE WAS CALLED. ...SHE WAS INTUBATED FOR PROTECTION OF AIRWAY PULMONOLOGY PN 10/20: ACUTE HYPOXIC RESPIRATORY FAILURE 2/2 VENTRICULAR TACHYCARDIA ARREST, RESOLVED RISK FACTORS: CODE BLUE WITH LOSS OF PULSE (10/18) NSTEMI TREATMENT: INTUBATION & MECHANICAL VENT (10/18 - ) THANK YOU! Tyra (This form is maintained as a part of the permanent medical record) 2015 [email or web address]. All Rights Reserved Tyra Hopper RN, [email or web address] Office: [phone] [facility] CENTERMan
--- NOTE | 2017-10-21 13:09 | DIS ---
DATE OF ADMISSION: 10/17/2017 DATE OF DISCHARGE: 10/21/2017 PRIMARY CARE PROVIDER: Dr. Aaron Ricci. DISCHARGE DISPOSITION: Discharged to [facility]. FINAL DIAGNOSES: Unstable angina, non-ST elevation myocardial infarction, hypertension, dyslipidemia , torsades de pointes. DISCHARGE MEDICATIONS: MiraLax 17 grams in water p.r.n., albuterol sulfate 2.5 mg inhaled b.i.d., li sinopril 10 mg a day, Nitrostat 0.4 mg every 5 minutes p.r.n., aspirin 325 mg a day, Lipitor 40 mg a day, Coreg 3.125 mg twice a day, Plavix 75 mg a day. ALLERGIES: No known drug allergies. CODE STATUS: FULL. PENDING AT THE TIME OF DISCHARGE: Nothing. HOSPITAL COURSE: Patient admitted to [facility] through [facility] with chest and back pain. Troponins ranged from 0.01-0.4. No ST-T changes were noted on the EKG. It did have the left bundle branch block. Cardiac catheterization was done on the day of admission . She had a PCI done to the LAD. Dr. Marcello Castro was seen in consultation. Echocardiogram re vealed LVEF of 50%-55% on 10/19/2017. She had a code blue with torsades de pointes. She was intubat ed and moved to ICU. Consultation was obtained with Dr. Erasto Thomson. She was extubated on 10/21/19 18, transferred back to telemetry, because of torsades de pointes. Consults were obtained for a Life Vest. The patient was fitted with a LifeVest 10/20/2017. The patient did not tolerate it. She stat ed she could not sleep with it in conversation with myself and Dr. Garcia and nurse, Haydee Scruggs. She affirmed with each of us that she was not willing to wear it. She is currently doing well. Haley l signs are stable. She is alert and oriented. Cardiorespiratory exam is unremarkable. She is bein g transferred back to the [facility] for continuing care. FOLLOWUP: Will be with Dr. Aaron Ricci in 7 days. Follow up with Dr. Castro will be arranged.
[2017-10-21 16:58] VITALS: BP 145/65; TEMP 98.6
== END 2017-10-21 17:04 | DRG 246 ==
LOC: ERS 04:15 → 2SE 06:11 → OBSVTOIN 16:39 → CCU 10-18 20:39 → 2NO 10-20 16:20
PROVIDERS: ADMIT Internal Medicine; ATTEND Internal Medicine
PROC: 4A023N7 Measurement of Cardiac Sampling and Pressure, Left Heart, Percutaneous Approach (ICD-10-PCS; principal; 2017-10-18)
PROC: 027034Z Dilation of Coronary Artery, One Artery with Drug-eluting Intraluminal Device, Percutaneous Approach (ICD-10-PCS; 2017-10-18)
PROC: 5A1945Z Respiratory Ventilation, 24-96 Consecutive Hours (ICD-10-PCS; 2017-10-18)
PROC: B2111ZZ Fluoroscopy of Multiple Coronary Arteries using Low Osmolar Contrast (ICD-10-PCS; 2017-10-18)
PROC: 0BH17EZ Insertion of Endotracheal Airway into Trachea, Via Natural or Artificial Opening (ICD-10-PCS; 2017-10-18)
DX: I21.4 Non-ST elevation (NSTEMI) myocardial infarction (principal); J96.01 Acute respiratory failure with hypoxia; I47.2 Ventricular tachycardia; I69.251 Hemiplegia and hemiparesis following other nontraumatic intracranial hemorrhage affecting right dominant side; E78.5 Hyperlipidemia, unspecified; I10 Essential (primary) hypertension; I25.110 Atherosclerotic heart disease of native coronary artery with unstable angina pectoris; K21.9 Gastro-esophageal reflux disease without esophagitis; F32.9 Major depressive disorder, single episode, unspecified; F41.9 Anxiety disorder, unspecified; I44.7 Left bundle-branch block, unspecified; Z53.29 Procedure and treatment not carried out because of patient's decision for other reasons; I69.220 Aphasia following other nontraumatic intracranial hemorrhage; I69.291 Dysphagia following other nontraumatic intracranial hemorrhage; R13.10 Dysphagia, unspecified
CPT/HCPCS: 36415; 70450; 71045; 76942; 80048; 80053; 80061; 81001; 82553; 82805; 83735; 84484; 85007; 85025; 85027; 85347; 85610; 85730; 86850; 86900; 86901; 86922; 87086; 92928; 93005; 93010; 93306; 93454; 94002; 94003; 94760; 99152; 99153; A4216; C1725; C1769; C1874; C1887; C9600; J0282; J0461; J1644; J1650; J2060; J2250; J2405; J2704; J3475; J3480; J7050

== ENCOUNTER 2017-11-05 23:18 | Inpatient (IN) | payer MEDICARE, MEDICAID ==
[2017-11-05] MEDS ORDERED: Acetaminophen 325 MG Suppository ONE (23:34)
[2017-11-05] MEDS ORDERED: Acetaminophen 650 MG Suppository ONE (23:34)
--- NOTE | 2017-11-05 23:51 | RAD ---
SINGLE VIEW OF THE CHEST: 11/05/17 COMPARISON: 10/19/17 HISTORY: Vomiting and fever. Tachycardia. FINDINGS: Single view of the chest shows an enlarged cardiomediastinal silhouette. There is no evidence of cons olidation, mass, or pleural effusion. There is a catheter projecting over the right chest wall which may represent a FRIT BURNER shunt. IMPRESSION: Cardiomegaly without evidence of acute cardiopulmonary disease. POS: [facility]
[2017-11-05 23:52] LABS: Bilirubin Negative (Negative); Blood, Urine Large (Negative); Clarity CLOUDY (Clear); Glucose, Urine (Dipstick) Negative (Negative); Leukocyte Small (Negative); Nitrite Negative (Negative); Protein, Urine (Dipstick) 100 mg/dL (Neg-Trace); Specific Gravity, Urine 1.019 (1.002-1.036); pH, Urine 5.5 (5.0-9.0)
[2017-11-05 23:55] LABS: Bacteria/HPF 2+ HPF (None Seen); Hyaline Casts/LPF 4-6 HYALINE CAST LPF (0-3 Hyaline); Pathc Cast-AUWi Flag 1.01 (0-2.49); RBC/HPF GREATER THAN 50-TNTC HPF (0-3); Squamous Epithelial 0-3 HPF (0-3); WBC/HPF 21-50 HPF (0-3)
[2017-11-06] LABS: Hemoglobin 12.4 g/dL (12.0-16.0); Mean Corpuscular HGB CONC 32.9 g/dL (32.0-36.0); Mean Corpuscular Hemoglobin 33.2 pg (27.0-31.0); Mean Platelet Volume 6.6 fL (7.4-10.4); Platelet Count 204 thou/uL (130-400); RBC Distribution Width 13.4 % (11.5-14.5); Red Blood Cell (RBC) Count 3.72 mill/uL (4.20-5.40); White Blood Cell (WBC) Count 5.5 thou/uL (4.8-10.8)
[2017-11-06] MEDS ORDERED: Cefepime 2 GM, Syringe 2.5 ML in Sodium Chloride 0.9% 10 ML SLOW IVP SCH ×3 (00:15→12:30)
[2017-11-06] MEDS ORDERED: Vancomycin HCl 1.25 GM in Sodium Chloride 0.9% 250 ML 250 ML IVPB SCH ×2 (00:15→13:00)
[2017-11-06 00:17] LABS: ALT (SGPT) 30 U/L (8-55); AST (SGOT) 50 U/L (5-34); Albumin 3.1 g/dL (3.4-4.8); Alkaline Phosphatase 205 U/L (40-150); Anion Gap 17 mmol/L (10-20); BUN (Urea Nitrogen) 16 mg/dL (9.8-20.1); Bilirubin, Total 1.6 mg/dL (0.2-1.2); Calc. Creatinine Clearance 0 mL/min (70-130); Calcium 7.9 mg/dL (7.8-10.44); Carbon Dioxide 15 mmol/L (23-31); Chloride 114 mmol/L (98-107); Estimated GFR-MDRD 41; Globulin 3.2 g/dL (2.4-3.5); Glucose 95 mg/dL (83-110); Protein, Total 6.3 g/dL (6.0-8.3); Sodium 143 mmol/L (136-145)
[2017-11-06 00:19] LABS: Potassium 2.8 mmol/L (3.5-5.1)
[2017-11-06 00:20] LABS: Band 37 % (5-11); Lymphocytes 9 % (21-51); MDiff Complete? YES; Monocytes 2 % (0-10); Neutrophil 52 % (42-75); Nucleated RBC 2 % (0)
[2017-11-06] MEDS ORDERED: Potassium Chloride 20 MEQ TAB ONE ×2 (00:28→00:43)
[2017-11-06] MEDS ORDERED: NS 0.9% w/ 20 MEQ KCL 1,000 ML IV SCH (00:45)
[2017-11-06 03:35] LABS: CKMB 40.3 ng/mL (0-6.6)
[2017-11-06] MEDS ORDERED: Fentanyl 100 MCG/2 ML VIAL ONE (03:55)
[2017-11-06] MEDS ORDERED: Ondansetron HCl/PF 4 MG/2 ML Vial ONE (04:05)
[2017-11-06] MEDS ORDERED: Enoxaparin Sodium 80 MG/0.8 ML SYRINGE ONE (04:38)
[2017-11-06] MEDS ORDERED: Enoxaparin Sodium 100 MG/ML SYRINGE ONE (04:39)
[2017-11-06] MEDS ORDERED: Norepinephrine 8 MG/0.9% NS 250 ML ONE (05:32)
[2017-11-06] MEDS ORDERED: Ondansetron HCl/PF 4 MG/2 ML Vial IVP PRN ×2 (05:47→06:10)
[2017-11-06] MEDS ORDERED: Ondansetron ODT 4 MG TAB SL PRN (05:47)
[2017-11-06] MEDS ORDERED: Acetaminophen 325 MG TAB PO PRN (05:47)
[2017-11-06] MEDS ORDERED: Norepinephrine 8 MG/250 ML BAG IVPB PRN (05:55)
[2017-11-06] MEDS ORDERED: Sodium Chloride 0.9% 1,000 ML IV SCH ×4 (06:00→11:17)
[2017-11-06] MEDS ORDERED: CCU Electrolyte Replacement 1 EACH FS ONE (06:10)
[2017-11-06] MEDS ORDERED: Ondansetron ODT 4 MG TAB PO PRN (06:10)
[2017-11-06] MEDS ORDERED: Magnesium 2 GM/NS 0.9% 100 ML 2 GM in Premix Bag 1 BAG IVPB PRN (06:21)
[2017-11-06] MEDS ORDERED: Potassium Chloride 40 MEQ in Premix Bag 1 BAG IVPB PRN (06:21)
[2017-11-06] MEDS ORDERED: Potassium Chloride 20 MEQ TAB PO PRN (06:21)
[2017-11-06] MEDS ORDERED: Magnesium Oxide 400 MG TAB PO PRN ×2 (06:21)
[2017-11-06] MEDS ORDERED: Potassium Phosphate 12 MMOL in Sodium Chloride 0.9% 250 ML 250 ML IV PRN (06:21)
[2017-11-06] MEDS ORDERED: Potassium Phosphate 15 MMOL in Sodium Chloride 0.9% 250 ML 250 ML IV PRN (06:21)
[2017-11-06] MEDS ORDERED: Potassium Phosphate 9 MMOL in Sodium Chloride 0.9% 100 ML IVPB PRN (06:21)
[2017-11-06] MEDS ORDERED: Potassium Chloride 40 MEQ in Sodium Chloride 0.9% 250 ML 250 ML IVPB PRN (06:21)
[2017-11-06] MEDS ORDERED: CCU ELECTROLYTE REPLACEMENT PROTOCOL FS PRN (06:21)
--- NOTE | 2017-11-06 08:16 | ULT ---
PRELIMINARY REPORT/[facility]/EMERGENCY AFTER HOURS PROCEDURE: EXAM: US Abdomen Limited, Right Upper Quadrant CLINICAL HISTORY: 77 years old, female; Pain and signs and symptoms; Fever and nausea and vomiting; Abdominal pain; Loc alized; Right upper quadrant (ruq); Prior surgery; Surgery date: 6+ months; Surgery type: Cholecystec mau TECHNIQUE: Real-time ultrasound of the right upper quadrant with image documentation. COMPARISON: No relevant prior studies available. FINDINGS: Prior cholecystectomy. No significant biliary dilation, common duct measures 8.5 mm. Unremarkable liver, no focal abnormality. Visible pancreas unremarkable. Much of the pancreas is obscured by bowel gas. Several large shadowing right intrarenal calculi. This could represent a large staghorn calculus. Images of the right kidney show no definite hydronephrosis. IMPRESSION: Prior cholecystectomy, no significant biliary tree dilation. Several large shadowing right intrarenal calculi. No definite hydronephrosis. Thank you for allowing us to participate in the care of your patient. Dictated and Authenticated by: Preet Dill MD 11/06/2017 1:55 AM Central Time ([place] & [place]) FINAL REPORT GALLBLADDER ULTRASOUND: Date: 11/06/17 HISTORY: Abdominal pain. Nausea. Vomiting. Fever. COMPARISON: None. TECHNIQUE: Utilizing a multihertz transducer, sonographic imaging of the right upper quadrant was performed in t he longitudinal and transverse plane. FINDINGS/IMPRESSION: This report is in agreement with the preliminary report by Randy. Surgically absent gallbladder. Dilat ation of the common bile duct, in keeping with previous surgery and may be due to reservoir state. Th ere is evidence of a calculus in the right renal pelvis. Mild dilatation of the upper pole fernando is s uspected. POS: [facility]
--- NOTE | 2017-11-06 08:21 | CT ---
PRELIMINARY REPORT/[facility]/EMERGENCY AFTER HOURS PROCEDURE: EXAM: CT Head Without Intravenous Contrast CLINICAL HISTORY: 77 years old, female; Signs and symptoms; Altered mental status/memory loss; Prior surgery; Patient H X: 77 yo f. Pt presents with n/v and fever. Brought to ed via ems from [facility]. Naren collier at bedside, report a&ox2 is not normal baseline, that she is normally with it. Sepsis alert on arr ival with abnormal vs tachycardic and febrile. TECHNIQUE: Axial computed tomography images of the head/brain without intravenous contrast. COMPARISON: No relevant prior studies available. FINDINGS: No definite acute skull fracture. Included paranasal sinuses are essentially clear. No acute intracranial hemorrhage or mass effect. Right [employer] shunt catheter enters the right lateral ventricle, tip probably in third ventricle. Ventricle size is within normal limits for age and degree of atrophy, and no evidence for significant hydrocephalus. Eventual comparison with any available prior exams may be helpful. There is decreased attenuation in the periventricular white matter, likely from microvascular disease . Apparent old subcortical infarct in the right frontal region. 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 No definite acute infarct by CT. MRI could be more sensitive/specific for detecting an acute infarct, and also for distinguishing between old and subacute infarcts, as clinically directed. IMPRESSION: No acute intracranial bleed or mass effect. Changes of microvascular disease, and old infarcts, details above. No definite acute infarct by CT, see above. [employer] shunt catheter as above, no evidence for significant hydrocephalus. Thank you for allowing us to participate in the care of your patient. Dictated and Authenticated by: Preet Dill MD 11/06/2017 1:07 AM Central Time ([place] & [place]) FINAL REPORT CT HEAD NONCONTRAST: Date: 11/06/17 FINDINGS/IMPRESSION: Reference made to 10/17/17. I agree with the above provided preliminary interpretation from [facility]. No acute intracranial hemorrhage or mass effect. Stable postprocedural findings and persistent areas of multifocal hypoattenuation involving the supra tentorial and infratentorial brain. POS: [facility]
--- NOTE | 2017-11-06 08:28 | HP ---
DATE OF ADMISSION: 11/06/2017 PRIMARY CARE PROVIDER: Dr. Aaron Ricci. CHIEF COMPLAINT: Nausea and vomiting. HISTORY OF PRESENT ILLNESS: This is a 77-year-old female who currently resides at [facility] over the last 10 years, who was recently admitted to [facility] er from 10/17/2017 through 10/21/2017 after diagnosed with unstable angina and non-ST elevation myoca rdial infarction, status post percutaneous coronary intervention to the LAD. The patient also develo ped torsades de pointes and was offered a LifeVest; however, subsequently declined a LifeVest prior t o discharge due to ill-fitting device. The patient was given counseling regarding the consequences o f this in regards to life threatening arrhythmias; however, chose to pursue medical management. The patient was discharged on 10/21/2017 and returns on 11/06/2017 with complaints of nausea and vomiting . The patient also was noted with fever with a temperature of 104.7 degrees rectally documented in [facility] emergency room. The patient was noted with pulse in the 140s and hypoxic and hypotensive meeting severe sepsis criteria. The patient received aggressive IV fluid hydration in the emergency room as well as Zofran, fentanyl, potassium chloride, Levaquin, vancomycin and cefepime. The patient was not ed with hypotension as stated previously and given approximately 4 liters of normal saline in the [facility] rgency room. The patient was noted with elevated lactic acid level of 5.8 increasing to 7.0 on repea t. The patient was also noted with elevated troponin I up to 4.67 receiving Lovenox 90 mg in the [facility] rgency room. CT imaging of the abdomen and pelvis did reveal staghorn calculus in the right kidney w ith mild hydronephrosis with diffuse inflammation greater than expected for the degree of hydronephro sis, suspicious for pyelonephritis. The patient was subsequently transferred to the critical care un it for further evaluation and likely addition of pressor agents. PAST MEDICAL HISTORY: 1. Status post non-ST elevation myocardial infarction with PCI to LAD, 10/2017. 2. History of torsades de pointes, status post [id number] myocardial infarction. 3. Dyslipidemia. 4. Hypertension. 5. Chronic right hemiparesis, status post intracranial hemorrhage. 6. Neurogenic bladder. 7. Gastroesophageal reflux disease. 8. Depression. 9. History of dysphagia. 10. History of GI bleed secondary to gastric ulcer. PAST SURGICAL HISTORY: 1. Status post PEG tube placement with subsequent removal. 2. Status post appendectomy. 3. Status post cholecystectomy. 4. Status post right frontal andrew hole placement with frontal ventriculostomy. 5. Status post inferior tentorial craniotomy with evacuation of cerebellar hematoma in 2007. CURRENT MEDICATIONS: Based on recent admission, 1. Albuterol sulfate 2.5 mg inhaled b.i.d. 2. Aspirin 325 mg 1 tab p.o. daily. 3. Lipitor 40 mg p.o. at bedtime. 4. Dulcolax suppository 10 mg per rectum daily. 5. Coreg 3.125 mg p.o. b.i.d. 6. Plavix 75 mg 1 tab p.o. daily. 7. Lotrimin AF cream 1 application topically b.i.d. 8. Lisinopril 10 mg 1 tab p.o. daily. 9. Nitroglycerin 0.4 mg p.o. q.5 minutes p.r.n. chest pain. 10. MiraLax 17 grams p.o. daily. ALLERGIES: No known drug allergies. FAMILY HISTORY: Sister with coronary artery disease and breast cancer. Multiple brothers with coron shelley artery disease in early age. SOCIAL HISTORY: The patient is , accompanied by her in the hospital. Resides at [facility] over the last 10 years. No current alcohol, tobacco or illicit drug use. Ambul ates with the use of a rolling walker. REVIEW OF SYSTEMS: The following complete review of systems was negative, unless otherwise mentioned in the HPI or below: Constitutional: Weight loss or gain, ability to conduct usual activities. Skin: Rash, itching. Eyes: Double vision, pain. ENT/Mouth: Nose bleeding, neck stiffness, pain, tenderness. Cardiovascular: Palpitations, dyspnea on exertion, orthopnea. Respiratory: Shortness of breath, wheezing, cough, hemoptysis, fever or night sweats. Gastrointestinal: Poor appetite, abdominal pain, heartburn, nausea, vomiting, constipation, or diarr hea. Genitourinary: Urgency, frequency, dysuria, nocturia. Musculoskeletal: Pain, swelling. Neurologic/Psychiatric: Anxiety, depression. Allergy/Immunologic: Skin rash, bleeding tendency. PHYSICAL EXAMINATION: VITAL SIGNS: Currently, blood pressure 75/44, pulse 110, respiratory rate 33, O2 saturation 91% on 2 liters per minute by nasal cannula, temperature 97.8 degrees Fahrenheit, T-max 104.7 degrees Fahrenh eit. GENERAL APPEARANCE: This is a 77-year-old female, alert and responsive with mild dysarthri a and mild to moderate distress. HEENT: Pupils are equal, round, and reactive to light and accommodation. Extraocular muscles are in tact. No scleral icterus, no conjunctival injection. Nares patent. OP is clear. Oral mucosa dry a ppearing. NECK: Supple, no cervical adenopathy, no thyromegaly, no carotid bruits, no JVD appreciated. No men ingeal signs appreciated. CHEST: Coarse breath sounds in bilateral lung huerta. CARDIOVASCULAR: S1, S2 with tachycardia. ABDOMEN: Obese, soft, nontender, nondistended. Bowel sounds are positive in all four quadrants. No palpable mass. No rebound or guarding appreciated. EXTREMITIES: Warm and dry with fair turgor. No clubbing, cyanosis or asymmetric edema appreciated. Pulses palpable distally at the dorsalis pedis, posterior tibial, and popliteal arteries bilaterally . Capillary refill less than 2 seconds. NEUROLOGIC: Cranial nerves II through XII are grossly intact. Mild dysarthria noted. Right upper e xtremity paresis noted. Right lower extremity with full active and passive range of motion. PERTINENT LABORATORY DATA AND X-RAY FINDINGS: Sodium 143, potassium 2.8, chloride 114, CO2 of 15, BU N 16, creatinine 1.26 with estimated GFR of 41, glucose 95. Lactic acid level ranged between 5.8-7.0 , calcium 7.9, magnesium 1.7, total bilirubin 1.6, AST 50, ALT of 30, alkaline phosphatase 205. Trop onin I 4.67, albumin 3.1, lipase 5. CBC showed a white blood cell count of 5.5, hemoglobin 12, hemat ocrit 38, MCV 101, platelet count 204 with 52% neutrophils and 37% bands. Urinalysis positive for la rge amount of blood, greater than 50 to too numerous to count RBCs per high power field and 21-50 WBC s per high power field. CT of the brain without contrast dated 11/06/2017 showed no acute intracrani al process. CT of the abdomen and pelvis dated 11/06/2017 showed staghorn calculus in the right kidn ey with mild hydronephrosis. Small left pleural effusion. Distention of the rectum to 8 cm with for med stool. Portable chest x-ray dated 11/06/2017 by my interpretation shows pulmonary vascular promi nence. Questionable left lower lobe pleural effusion. Right internal jugular central venous cathete r. EKG dated 11/05/2017 by my interpretation shows sinus tachycardia with heart rates in the 130s. Attenuated R waves noted in the precordial leads. Normal axis. Left bundle branch block pattern not ed. ASSESSMENT AND PLAN: 1. Severe sepsis with shock. The patient will be admitted to the critical care unit. We will kacey nue aggressive IV fluid hydration. Initiate Levophed for pressor support to maintain systolic blood pressure in the 90-100 range. We will continue sepsis protocol with serial lactate assessments. Con tinue broad spectrum IV antibiotic therapy including cefepime 2 grams IV q.12 hours with additional v ancomycin 1 gram IV q.12 hours. The patient received cefepime, vancomycin, and Levaquin in the emerg ency room. Blood and urine cultures are pending. We will consult Critical Care Service for evaluati on. 2. Urinary tract infection. Suspected as culprit of patient's sepsis. We will continue IV antibiot ics including cefepime 2 grams q.12 hours. Await final urine culture results. Continue IV fluids an d monitor urine output after placement of Cedillo catheter. 3. Lactic acidosis secondarily to #1. We will continue treatment as outlined in #1 and monitor lac tic acid trend per sepsis protocol. 4. Acute kidney injury. We will continue IV fluid hydration as outlined previously. Avoid nephroto xic agents and contrast media. Repeat creatinine in the a.m. 5. Non-ST elevation myocardial infarction. Suspected demand state given #1. Status post percutaneo us coronary intervention to the LAD with drug-eluting stent. Continue medical management. Consult C ardiology Service for further evaluation and recommendations for management. 6. Severe hypotension. We will continue IV fluid hydration with normal saline. Continue Levophed f or pressor support to maintain systolic greater than 90. Check serum cortisol level. 7. Prophylaxis. Sequential compression devices while in bed. Pepcid 20 mg IV q.12 hours. 8. Code status is full. Surrogate medical decision maker is patient's spouse. TOTAL CRITICAL CARE TIME: 45 minutes.
[2017-11-06] MEDS ORDERED: Famotidine/PF 20 mg/2ml Vial SLOW IVP SCH (09:00)
[2017-11-06] MEDS ORDERED: FLU VACC TS2017-18 (>65YR) 0.5 ML SYRINGE IM ONE (09:00)
--- NOTE | 2017-11-06 09:07 | RAD ---
PORTABLE CHEST 1 VIEW: Date: 11/06/17 Time: 0443 hours HISTORY: Central line placement. FINDINGS/IMPRESSION: Comparison made with exam of previous day. There has been interval placement of a right internal jugular central line with tip in the projection of the SVC. No pneumothoraces are seen. The heart is enlarged. There is pulmonary vascular congestio n. There is suggestion of left basilar consolidation/infiltrate. POS: [facility]
[2017-11-06] MEDS: Famotidine 40 MG/4 ML VIAL SLOW IVP SCH (09:10)
--- NOTE | 2017-11-06 09:19 | CT ---
PRELIMINARY REPORT/[facility]/EMERGENCY AFTER HOURS PROCEDURE: EXAM: CT Abdomen and Pelvis Without Intravenous Contrast EXAM DATE/TIME: Exam ordered 11/06/2017 1:41 AM CLINICAL HISTORY: 77 years old, female; Signs and symptoms; Fever; Patient HX: 77 yo f. Pt presents with n/v and fever. Brought to ed via ems from [facility]. Family at bedside, report a&ox2 is not normal b aseline, that she is normally with it. Sepsis alert on arrival with abnormal vs tachycardic and febri le. TECHNIQUE: Axial computed tomography images of the abdomen and pelvis without intravenous contrast. Coronal reformatted images were created and reviewed. COMPARISON: US Gallbladder RUQ 2017-11-06 01:03 FINDINGS: Lung bases: Unremarkable. No mass. No consolidation. Pleural space: Small left pleural effusion. Heart: Cardiomegaly. ABDOMEN: Liver: Unremarkable. Gallbladder and bile ducts: Prior cholecystectomy. No ductal dilation. Pancreas: Unremarkable. No ductal dilation. Spleen: Unremarkable. No splenomegaly. Adrenals: Unremarkable. No mass. Kidneys and ureters: Staghorn calculus in the right kidney with mild hydronephrosis. Diffuse inflamma tion greater than expected for degree of hydronephrosis is suspicious for pyelonephritis, especially in the clinical setting of fever. Large left renal cysts. Nonobstructive nephrolithiasis in the left kidney. Stomach and bowel: Rectum is distended to 8 cm with formed stool, potentially impacted. Colonic diver ticulosis. No diverticulitis. Appendix: Appendix not visualized. No evidence of appendicitis. PELVIS: Bladder: Unremarkable. No stones. Reproductive: Prior hysterectomy. ABDOMEN and PELVIS: Intraperitoneal space: Unremarkable. No free air. No significant fluid collection. Bones/joints: No acute fracture. No dislocation. Soft tissues: Unremarkable. Vasculature: Unremarkable. No abdominal aortic aneurysm. Lymph nodes: Mild right sided retroperitoneal lymphadenopathy measuring up to 1.2 cm in short axis, i ndeterminate. IMPRESSION: 1. Staghorn calculus in the right kidney with mild hydronephrosis. Diffuse inflammation greater than expected for degree of hydronephrosis is suspicious for pyelonephritis, especially in the clinical se tting of fever. 2. Mild right sided retroperitoneal lymphadenopathy measuring up to 1.2 cm in short axis, indetermina te. 3. Small left pleural effusion. 4. Rectum is distended to 8 cm with formed stool, potentially impacted. Thank you for allowing us to participate in the care of your patient. Dictated and Authenticated by: Garrett Hernandez MD 11/06/2017 2:33 AM Central Time ([place] & [place]) FINAL REPORT ABDOMEN CT WITHOUT CONTRAST PELVIC CT WITHOUT CONTRAST: DATE: 11/06/17 HISTORY: Nausea. Fever. Abdominal pain. COMPARISON: None. TECHNIQUE: Abdomen and pelvis CT performed without IV or oral contrast. Coronal reformatted images submitted for interpretation. FINDINGS: Large staghorn calculus within the right intrarenal collecting system with associated mild hydronephr osis. There is mild right-sided perinephric fat stranding. There is moderate dilatation of the right ureter with right periureteral fat stranding. There is subtle hyperdensity in the distal right ureter which may represent small, obstructing stones. The overall degree of fat stranding in the right caprice nephric space is greater than expected for the degree of obstructive uropathy. Correlate for a possib le superimposed infection. Retrograde IVP may be beneficial. There is a large left renal cyst without evidence of obstructive uropathy. Nonobstructing calcifications in the left renal pelvis are present . Note is made of what appears to be a ventriculoperitoneal shunt catheter terminating in the left uppe r quadrant. The rectum is moderately distended. Correlate for impaction. IMPRESSION: Small, obstructing calculi in the distal right ureter with associated right-sided obstructive uropath y. Urology consultation for retrograde IVP is recommended. Findings discussed with the patient's nurse, Wandy on 11/06/17 at 0802 hours. CODE CR. POS: [facility]
[2017-11-06 09:39] LABS: Troponin I 10.754 ng/mL (< 0.028)
[2017-11-06] MEDS: Norepinephrine 8 MG/0.9% NS 250 ML IVPB SCH ×2 (09:53→15:53)
[2017-11-06] MEDS ORDERED: Potassium Chloride 40 MEQ in Premix Bag 1 BAG IVPB SCH (12:00)
[2017-11-06 12:18] LABS: Lactic Acid 6.4 mmol/L (0.5-2.2)
[2017-11-06 12:22] LABS: Anion Gap 19 mmol/L (10-20); BUN (Urea Nitrogen) 20 mg/dL (9.8-20.1); Calc. Creatinine Clearance 39 mL/min (70-130); Carbon Dioxide 10 mmol/L (23-31); Chloride 121 mmol/L (98-107); Estimated GFR-MDRD 31; Glucose 60 mg/dL (83-110); Potassium 3.6 mmol/L (3.5-5.1); Sodium 146 mmol/L (136-145)
[2017-11-06 12:24] LABS: Band 28 % (5-11); Hemoglobin 10.3 g/dL (12.0-16.0); Lymphocytes 6 % (21-51); MDiff Complete? YES; Mean Corpuscular HGB CONC 31.3 g/dL (32.0-36.0); Mean Platelet Volume 7.3 fL (7.4-10.4); Metamyelocyte 6 % (0-0); Myelocyte 1 % (0-0); Neutrophil 59 % (42-75); Platelet Count 187 thou/uL (130-400); RBC Distribution Width 13.7 % (11.5-14.5); Red Blood Cell (RBC) Count 3.21 mill/uL (4.20-5.40); White Blood Cell (WBC) Count 34.8 thou/uL (4.8-10.8)
--- NOTE | 2017-11-06 12:24 | CON ---
DATE OF CONSULTATION: 11/06/2017 SERVICE: Pulmonary Medicine. REASON FOR CONSULTATION: Septic shock. HISTORY OF PRESENT ILLNESS: The patient is a 77-year-old white female with past medical history significant for coronary artery disease and recent PCI placement. Either way, she went home and was doing fairly well. She then had severe nausea and vomiting. She was having some cough and congestion in the middle of the night. She had temperatures up to 104 degrees and subsequently came back to the emergency department. At that place, they found right kidney with mild hydronephrosis and a staghorn calculi. These are suspected source at this point. PAST MEDICAL HISTORY: 1. Coronary artery disease, status post recent intervention. 2. Torsades de pointes. 3. Dyslipidemia. 4. Hypertension. 5. Neurogenic bladder. 6. Gastroesophageal reflux disease. 7. Major depressive disorder. 8. 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 9. History of GI bleed secondary to peptic ulcer disease. PAST SURGICAL HISTORY: 1. PEG tube placement and subsequent removal. 2. Appendectomy. 3. Cholecystectomy. 4. Right frontal andrew hole placement with a ventriculostomy drain, status post removal. 5. Inferior tentorial craniotomy with evacuation of cerebellar hematoma. 6. Percutaneous coronary intervention, recent. ALLERGIES: No known drug allergies. MEDICATIONS LIST: Her inpatient medications were reviewed. No specific updates were made at this time. FAMILY HISTORY: Noncontributory. SOCIAL HISTORY: Negative for alcohol, tobacco or illicit drug use. She is and lives in [facility] for over 10 years. REVIEW OF SYSTEMS: General, head, ears, eyes, nose, throat, cardiovascular, respiratory, GI, , musculoskeletal, neurologic and skin is negative except as mentioned in the HPI. PHYSICAL EXAMINATION: VITAL SIGNS: Afebrile, pulse 114, blood pressure 82/54, respirations 33, saturation 94% on 3 liters nasal cannula. GENERAL: The patient is awake and alert, in no apparent distress. LUNGS: Decent air entry. Dependent crackles are present bilaterally. HEART: Tachycardic. Regular. ABDOMEN: Soft, nontender, nondistended. Bowel sounds are positive. MUSCULOSKELETAL: No cyanosis or clubbing. No pitting in the bilateral lower extremities. NEUROLOGIC: Grossly nonfocal. LABORATORY DATA: WBC 5.5, hemoglobin 12.4, platelets 204,000. Lactate is improving to 5.8, down from 7.0. Troponin 10.75 and up trending. Cortisol 70, lipase 5. Total bilirubin 1.6. Liver function studies are otherwise unremarkable. Creatinine 1.26, potassium 2.8. WBC 5.5, hemoglobin 12.4, platelets 204,000. Blood cultures x2 are unremarkable. IMAGIN. Chest x-ray demonstrates right subclavian central venous catheter is in good position. No pneumothorax is identified. Pulmonary vascular congestion is evident. Ultrasound of the abdomen demonstrates no obvious stone in this post-cholecystectomy patient. Enlarged common bile duct is in keeping with that status. Mild dilation of the upper pole calyx is suspected. 2. CT of brain demonstrates no acute intracranial abnormality. Chronic findings are present. 3. CT of the abdomen and pelvis demonstrates staghorn calculus in the right kidney with mild hydronephrosis and diffuse inflammatory changes consistent with pyelonephritis. Retroperitoneal lymphadenopathy is present. Small left- sided pleural effusion. Rectum is distended. ASSESSMENT: 1. Acute hypoxic respiratory failure. 2. Septic shock secondary to infection. 3. Pyelonephritis with staghorn calculi. 4. Non-ST elevation myocardial infarction. 5. Hypokalemia. 6. Debility. PLAN: IV fluids will be interrupted. I will give her several doses of potassium. We will make certain that she has a medication to keep her stools soft. Agree with empiric antibiotics directed at organisms. Urology opinion is pending. Pulmonary Critical Care will continue to follow and she will certainly need to remain in this location for the next 24-48 hours while we wean the pressors. 70 minutes have been devoted to this patient in various activities. I personally reviewed all imaging studies and laboratory data noted within this document. For fifty percent of this time, I was interacting with the patient at the bedside or coordinating care with the care team. For the remainder of the time I was immediately available to the patient in the hospital unit. ALIREZA
[2017-11-06] MEDS ORDERED: Atorvastatin Calcium 40 MG TAB PO SCH (12:30)
[2017-11-06] MEDS ORDERED: Clopidogrel Bisulfate 75 MG TAB PO SCH (12:30)
[2017-11-06] MEDS ORDERED: Cefepime 2 GM in Sodium Chloride 0.9% 100 ML IVPB SCH (12:30)
--- NOTE | 2017-11-06 13:47 | CON ---
DATE OF CONSULTATION: 11/06/2017 REASON FOR CONSULTATION: Consultation was requested for staghorn UTI with urosepsis. HISTORY OF PRESENT ILLNESS: The patient is a 77-year-old female who had been living in a long-term facility for the past 10-11 years and doing very well up until earlier this month when she had a coronary event and underwent a stenting. Thereafter, she was doing well. On the day of admistion, she was not feeling well and ultimately reported nausea, vomiting, and being taken to the emergency room. Normally she does not void into the toilet nor are her bowels continent; she goes into her Depends. She denied any frequency, urgency , dysuria or malodor, but she does admit to prior urinary tract infections. She has no prior concern for stones or reason to have seen a urologist before. There is a report of a neurogenic bladder, but it sounds as though she is just incontinent. She does not have any concerns for neurogenic bladder. She had no gross hematuria and no pain--specifically in the back. She showers on Thursday and Thursday only. PAST MEDICAL HISTORY: Hypertension, hypercholesterol, coronary artery disease with an PR and stenting (10/25), depression, GERD with prior peptic ulcer disease and GI bleed 25 years ago, CVA-hemorrhagic around 2006 for which she has some right hemiplegia and uses a walker, but mainly a wheelchair. She has asthma and/or COPD. PAST SURGICAL HISTORY: PEG which has since been removed, appendectomy, gallbladder craniotomy with evacuation of hematoma after a andrew hole and ventriculostomy, bladder suspension for prolapse about 10 years ago which has worked well since. PAST GLA[employer] HISTORY: 5 vaginal deliveries, MICHELA/QUEZADA (not for cancer) ALLERGIES: None. MEDICATIONS: Albuterol, Lipitor, Plavix, aspirin, Dulcolax, lisinopril, MiraLax , and nitroglycerin. SOCIAL HISTORY: She does not drink, smoke or use drugs. She uses a wheelchair mainly and a rolling walker on occasion. REVIEW OF SYSTEMS: significant rash or itching but her skin has multiple bruising that is noted just since the hospitalization. She did have shortness of breath which is much better now. She does have constipation normally. She took MiraLax and has had a bowel movement since her admission. She has not had a mammogram, PAP, or a colonoscopy recently, but did have them in the past. FAMILY HISTORY: Mm at 69 without any history of cancer. Dad in a car accident at 51. A sister of breast cancer, and brothers have coronary artery disease. PHYSICAL EXAMINATION: GENERAL: She is alert and oriented and reports feeling 100 times better than yesterday when she was admitted. VITAL SIGNS: T-max 98, heart rate 1-teens to 120s. Blood pressure previously as low as 75/44 and currently during my exam 107/56 with some Levophed support. She is satting 95-98% on 3 liters. She appears comfortable in the bed. CARDIOVASCULAR: Her heart was seemingly regular rhythm, but tachycardic. LUNGS: Relatively clear to auscultation bilaterally, but had poor inspiratory effort. ABDOMEN: Scar noteds. Soft, nondistended, nontender. BACK: She had no costovertebral angle tenderness. EXTREMITIES: She had no significant lower extremity edema. She had a Cedillo catheter and draining concentrated urine, which by report has been less than 30 mL per hour. LABORATORY DATA: White count elevated from 5.5 to 34.8 today and anemia of 10.3 and 32.9, BUN and creatinine of 19 and 1.62 and it was previously 1.26 and her baseline is around 0.9. Urinalysis revealed 21-50 WBCs, too numerous to count RBCs, 2+ bacteria and is currently growing gram negative rods. Prior urine culture was negative, but clearly she had a urinary tract infection from earlier in the month. Her lactic acid and troponins are going up. CT (11/06/17) was reviewed personally without contrast, huge rectum, normal appearing bladder. Right hydroureter, but without right hydronephrosis except possibly in the upper pole, large staghorn filling the right kidney. There is a report of a distal stone, but I disagree with that; at most there is distal debris in the ureter that is distended all the way down to the bladder; this is more consistent with dilation from infection as opposed to obstruction. Her left kidney had a very large cyst as well as 3 left flecks. ASSESSMENT AND PLAN: 77-year-old female with concerning rise in white count and creatinine, but likely the white count is a delayed reaction, and the creatinine is from hypovolemia along with intrinsic component given her urosepsis. I am not convinced of obstruction at this time, but certainly if she does worsen, then she would need a percutaneous nephrostomy tube as opposed to general anesthesia/stent. She would likely not tolerate this, and would have a high likelihood of further cardiac insult or at arrest with general anesthesia at this time. Again, at this time, I do not feel there is an indication for percutaneous nephrostomy tube either, as I think her urosepsis is not related to obstruction since she is clinically getting significantly better with an indwelling Cedillo and IV antibiotics. I would recommend aggressive hydration--knowing that this must be tempered with respect to her cardiac and pulmonary standpoint. Continue cefepime at this time until a culture speciates and we have more specific antibiotic choice--this should be given for at least 14-21 days for pyelonephritis. I'll follow along. ALIREZA
--- NOTE | 2017-11-06 16:47 | CON ---
CRITICAL CARE NOTE DATE OF CONSULTATION: 11/06/2017 REFERRING PHYSICIAN: Sedrick Weiss D.O. HISTORY OF PRESENT ILLNESS: This patient is an unfortunate 77-year-old woman who presented with nausea, vomiting, weakness and right-sided abdominal pain. The patient was recently admitted with a non-Q-wave myocardial infarction and underwent PTCA and stent into the LAD. The patient has been taking her Plavix and aspirin. She presented with marked weakness and hypotension. The patient did report having pain in her right abdomen. She denies having any chest discomfort. PAST MEDICAL HISTORY: 1. Myocardial infarction. 2. Hypertension. 3. Dyslipidemia. 4. History of right hemiparesis, status post intracranial hemorrhage. PAST SURGICAL HISTORY: Appendectomy, cholecystectomy. She has had a craniotomy for hematoma. MEDICATIONS: See nursing list. ALLERGIES: None. PHYSICAL EXAMINATION: GENERAL: An elderly woman in no acute distress. VITAL SIGNS: Blood pressure was 90/50 on Levophed and heart rate is 110. NECK: No jugular distention. LUNGS: Clear to auscultation. HEART: Regular rate and rhythm. Normal S1 and S2. No murmurs. ABDOMEN: Nondistended. EXTREMITIES: Showed no edema. LABORATORY RESULTS: White blood cell count 5.5, hemoglobin 12.4, hematocrit 37.6 and platelets are 204. Sodium was 143, potassium 2.8, chloride 114, bicarbonate 15, BUN 16 and creatinine is 1.26. Troponin was 4.6 with an MB of 40. IMAGING DATA: Her EKG revealed her to have sinus tachycardia with a left bundle branch block. IMPRESSION: 1. Non-Q-wave myocardial infarction. 2. Septic shock. 3. History of percutaneous transluminal coronary angioplasty and stent placement of the left anterior descending. 4. History of intracranial cerebellar hemorrhage. 5. Urinary tract infection. PLAN: An unfortunate woman presents with septic shock. She is on Levophed. From a cardiac standpoint, she needs to continue on her aspirin and Plavix. We will restart these medications. We will also place her on lipid lowering medication. We will check the patient's echocardiogram. We will follow this patient with you through her hospitalization. TIME SPENT: 30 minutes. ALIREZA
[2017-11-06] MEDS: Senokot S 8.6-50 MG TAB PO SCH (20:39)
[2017-11-06] MEDS: Cefepime 2 GM, Syringe 2.5 ML in Sodium Chloride 0.9% 10 ML SLOW IVP SCH (23:38)
[2017-11-07] MEDS ORDERED: Cefepime 2 GM in Sodium Chloride 0.9% 100 ML IVPB SCH ×2 (00:30→12:30)
[2017-11-07] MEDS ORDERED: Vancomycin HCl 1.25 GM in Sodium Chloride 0.9% 250 ML 250 ML IVPB SCH (01:00)
[2017-11-07 04:11] LABS: Actual Bicarbonate (HCO3a) 12.5 mEq/L (22-26); Base Excess (BEa) -14.1 mEq/L (0 (+/-) 2.5); CO2 Tension 31.5 mmHg (35.0-45.0); Hematocrit-ABG 30.9 % (36.0-47.0); Hemoglobin (Hb) 10.3 g/dL (12.0-16.0); O2 Tension (PaO2) 91.2 mmHg (80.0-100.0); pH, Arterial 7.22 (7.35-7.45)
[2017-11-07 04:12] LABS: ALV-art Gradient 126.105 (0-20); Calcium, Ionized 1.1 mmol/L (1.12-1.30); Puncture Site RRA
[2017-11-07] MEDS ORDERED: Sodium Chloride 0.45% 1,000 ML IV SCH (06:45)
[2017-11-07 06:47] LABS: Band 17 % (5-11); Hemoglobin 10.2 g/dL (12.0-16.0); Lymphocytes 6 % (21-51); MDiff Complete? YES; Mean Corpuscular HGB CONC 31.7 g/dL (32.0-36.0); Mean Platelet Volume 7.8 fL (7.4-10.4); Metamyelocyte 1 % (0-0); Monocytes 2 % (0-10); Neutrophil 74 % (42-75); Platelet Count 151 thou/uL (130-400); RBC Distribution Width 13.7 % (11.5-14.5); Red Blood Cell (RBC) Count 3.19 mill/uL (4.20-5.40); White Blood Cell (WBC) Count 30.8 thou/uL (4.8-10.8)
[2017-11-07 06:56] LABS: Calcium 7.4 mg/dL (7.8-10.44); Chloride 124 mmol/L (98-107); Magnesium 1.6 mg/dL (1.6-2.6); Potassium 5.1 mmol/L (3.5-5.1); Sodium 147 mmol/L (136-145)
[2017-11-07 06:57] LABS: Glucose 61 mg/dL (83-110)
[2017-11-07 06:58] LABS: Anion Gap 12 mmol/L (10-20); Carbon Dioxide 16 mmol/L (23-31)
[2017-11-07 07:00] LABS: Calc. Creatinine Clearance 32 mL/min (70-130); Estimated GFR-MDRD 24; Phosphorus 4.5 mg/dL (2.3-4.7)
[2017-11-07 07:01] LABS: BUN (Urea Nitrogen) 35 mg/dL (9.8-20.1)
[2017-11-07 07:12] LABS: Troponin I 40.955 ng/mL (< 0.028)
[2017-11-07] MEDS: Norepinephrine 8 MG/0.9% NS 250 ML IVPB SCH ×4 (07:20→13:42)
[2017-11-07] MEDS ORDERED: Digoxin 0.5 MG/2 ML AMP ONE (08:29)
[2017-11-07] MEDS ORDERED: Midazolam HCl 2 mg/2 ml Vial ONE ×2 (08:36→09:52)
[2017-11-07] MEDS ORDERED: EPINEPHrine 1 MG/ML AMP ONE (08:40)
[2017-11-07] MEDS ORDERED: Atropine Sulfate 1 mg/10 ml Syringe ONE (08:40)
[2017-11-07] MEDS ORDERED: Sodium Bicarb 50 MEQ/50 ML Abboject 8.4% SYRINGE ONE ×2 (09:53→11:11)
--- NOTE | 2017-11-07 10:12 | PRG ---
DATE OF SERVICE: 11/07/2017 SUBJECTIVE: The patient remained relatively stable in the past day; however, she had significant tac hycardia and ultimately with chest recently cardioverted for which she received Versed. Yesterday, s he had pulled on the catheter and there was some hematuria that required hand irrigation, but that skelton s not been necessary overnight. PHYSICAL EXAMINAITON: GENERAL: She is drowsy and moaning in the bed, but unable to open her eyes or respond. VITAL SIGNS: Her heart rate had been up into the 120s and now is back down into the 80s-90s with a b lood pressure 106/58, still on Levophed support. EXTREMITIES: Her hands are pink and warm with the bruising still noted and the catheter is draining pink-tinged urine. LABORATORY DATA: Reveal an H&H that is stable. Her platelets are down to 151 from 187. White count is now 30.8 from 34.8 with bands down to 17 from 28 and 37 previously, creatinine is up to 1.98 from 1.62 with a BUN up as well as 35 from prior 20. Her troponin is 40.955. ASSESSMENT: We have a significantly ill 77-year-old female with worsening cardiac status, but improv ing white count related to her urosepsis, who also has a right staghorn but without obvious concerns for obstruction at this time. I think her creatinine elevation is more related to prerenal and intri nsic disease as opposed anything obstructive at this time. I would continue the IV antibiotics until the cultures further speciated and the rest of her care can be continued to be handled by the ICU an d Cardiology as appropriate.
[2017-11-07 10:40] LABS: ALT (SGPT) 238 U/L (8-55); AST (SGOT) 563 U/L (5-34); Albumin 2.1 g/dL (3.4-4.8); Alkaline Phosphatase 145 U/L (40-150); Anion Gap 20 mmol/L (10-20); BUN (Urea Nitrogen) 34 mg/dL (9.8-20.1); Bilirubin, Total 0.9 mg/dL (0.2-1.2); Calc. Creatinine Clearance 31 mL/min (70-130); Carbon Dioxide 19 mmol/L (23-31); Chloride 124 mmol/L (98-107); Estimated GFR-MDRD 24; Globulin 2.3 g/dL (2.4-3.5); Glucose 25 mg/dL (83-110); Lactic Acid 10.7 mmol/L (0.5-2.2); Protein, Total 4.4 g/dL (6.0-8.3); Sodium 156 mmol/L (136-145)
[2017-11-07] MEDS ORDERED: Dextrose 50% Abboject 50 ML SYRINGE ONE (10:47)
[2017-11-07 10:50] LABS: pH, Arterial 7.21 (7.35-7.45)
[2017-11-07 10:51] LABS: Actual Bicarbonate (HCO3a) 11.2 mEq/L (22-26); Base Excess (BEa) -15.4 mEq/L (0 (+/-) 2.5); CO2 Tension 28.9 mmHg (35.0-45.0); Hematocrit-ABG 25.4 % (36.0-47.0); Hemoglobin (Hb) 9.1 g/dL (12.0-16.0); O2 Tension (PaO2) 100.5 mmHg (80.0-100.0)
[2017-11-07 10:52] LABS: ALV-art Gradient 505.075 (0-20); Calcium, Ionized 1.2 mmol/L (1.12-1.30); Puncture Site LBA
[2017-11-07] MEDS ORDERED: Lacri-Lube Opth Oint 3.5 GM TUBE EA EYE PRN (10:55)
[2017-11-07] MEDS ORDERED: Sedation Protocol FS ONE (10:55)
[2017-11-07 11:00] LABS: Band 20 % (5-11); Burr Cells SLIGHT = 2-5 cells (100X) (0-1/hpf); Hemoglobin 9.4 g/dL (12.0-16.0); Lymphocytes 13 % (21-51); MDiff Complete? YES; Mean Corpuscular Hemoglobin 32.2 pg (27.0-31.0); Mean Platelet Volume 8.4 fL (7.4-10.4); Metamyelocyte 4 % (0-0); Monocytes 3 % (0-10); Neutrophil 60 % (42-75); PLT Morphology Comment Appears Decreased; Platelet Count 112 thou/uL (130-400); Polychromasia SLIGHT = 2-3 cells (100X) (0-2/hpf); RBC Distribution Width 13.8 % (11.5-14.5); RBC Morphology Normal; Red Blood Cell (RBC) Count 2.92 mill/uL (4.20-5.40); White Blood Cell (WBC) Count 31.5 thou/uL (4.8-10.8)
[2017-11-07] MEDS ORDERED: Magnesium 2 GM/NS 0.9% 100 ML 2 GM in Premix Bag 1 BAG IVPB SCH (11:00)
[2017-11-07] MEDS ORDERED: Sodium Bicarbonate 150 MEQ in Dextrose 5% in Water 1,000 ML IV SCH ×2 (11:00→18:00)
[2017-11-07] MEDS ORDERED: Fentanyl BOLUS 250 ML IVPB PRN (11:01)
[2017-11-07] MEDS ORDERED: Morphine 2 MG/ML SYRINGE SLOW IVP PRN (11:01)
[2017-11-07] MEDS ORDERED: Lorazepam 2 MG/ML VIAL SLOW IVP PRN (11:01)
[2017-11-07] MEDS ORDERED: fentaNYL Citrate/PF 2,000 MCG in Sodium Chloride 0.9% 60 ML IV SCH (11:01)
[2017-11-07] MEDS ORDERED: Propofol 1,000 MG/100 ML VIAL IV PRN (11:01)
[2017-11-07] MEDS ORDERED: DISCONTINUE PREVIOUS NARCOTIC PAIN MEDICATIONS AND BENZODIAZEPINES FS SCH (11:01)
[2017-11-07] MEDS ORDERED: EPINEPHrine 1 MG/10 ML Abboject SYRINGE ONE (11:11)
[2017-11-07] MEDS ORDERED: Calcium Chloride 1 GM/10 ML Abboject SYRINGE ONE (11:11)
--- NOTE | 2017-11-07 11:14 | PRG ---
DATE OF SERVICE: 11/07/2017 SERVICE: Pulmonary Medicine INTERVAL HISTORY: The patient did fine overnight, but apparently had some event that caused an ABG t o be performed about 4:00 this morning. About 9:00 this morning, the patient went into atrial fibril lation with RVR. She was cardioverted on multiple occasions. After that, she went back into sinus r hythm. Her blood pressure was doing okay. Later on, she ended up losing her pulse and mireya'd down. This was after initiating her on some amiodarone. Chest compressions were initiated almost immedia tely. She was intubated. Labs were sent off. ABG was performed demonstrating a metabolic acidosis. She cannot provide any additional elements of the history. For complete details of what occurred, please refer to nursing documentation of the medications that were administered, and interventions th at were performed. PHYSICAL EXAMINATION: VITAL SIGNS: Afebrile, pulse 120, blood pressure 114/56, respirations 28, saturation 98% on 70% FIO2 and a PEEP of 5. HEENT: Normocephalic, atraumatic. Sclerae are white, conjunctivae pink. Oral and nasal mucosa is m oist without lesions. LUNGS: Decent air entry. Rhonchi are present. No crackles or wheezing appreciated. There is no pr olonged expiratory phase. HEART: Tachycardic. Irregular. ABDOMEN: Distended. Bowel sounds are hypoactive. There is no rebound or guarding, however. GENITOURINARY: Cedillo catheter in place. NEUROLOGIC: Grossly nonfocal. LABORATORY DATA: WBC 30.8, hemoglobin 10.2, platelets 151,000. Neutrophil count 74%. Bands are 17% and down trending. PH 7.22, pCO2 31, pO2 of 91. Potassium 7.0, sodium 156, creatinine 2.02, glucos e 25, lactate 10.7. Calcium 13.0. AST and ALT are both quite elevated. Troponin was previously 41. Blood cultures x2 are growing E. coli and Proteus. Urine culture has gram negative rods growing in it. IMAGING: Chest x-ray demonstrates interval intubation. There is possible atelectasis of the left up per lobe. Endotracheal tube is roughly 5 cm above the maritza. Left-sided pleural parenchymal opacif ication is evident. Enteric catheter courses below the level of the diaphragm. There is a right IJ that terminates in excellent position. ASSESSMENT: 1. Acute hypoxic respiratory failure. 2. Anion gap metabolic acidosis. 3. Septic shock secondary to genitourinary infection. 4. Pyelonephritis with staghorn calculi. 5. Pulseless electrical activity arrest following 10 minutes of chest compressions and return of cir culation. 6. Non-ST elevation myocardial infarction. 7. Hyperkalemia. 8. Debility. PLAN: The patient will remain on mechanical ventilation. As soon as she is stable, if her brain wak es up, we will set her up for IR placement of nephrostomy drain. She will remain on antibiotics. Pu lmonary and Critical Care will continue to follow very closely. CRITICAL CARE TIME: 115 minutes of critical care.
[2017-11-07] MEDS ORDERED: Morphine 4 MG/ML VIAL SLOW IVP PRN (11:15)
[2017-11-07] MEDS: Clopidogrel Bisulfate 75 MG TAB PO SCH (11:16)
[2017-11-07] MEDS: Polyethylene Glycol 3350 17 GM Packet PO SCH (11:17)
[2017-11-07] MEDS: Senokot S 8.6-50 MG TAB PO SCH ×2 (11:17→20:31)
[2017-11-07] MEDS: Famotidine 40 MG/4 ML VIAL SLOW IVP SCH (11:17)
[2017-11-07] MEDS ORDERED: Sodium Bicarbonate 50 MEQ in Dextrose 5% in Water 1,000 ML IV SCH (12:00)
[2017-11-07] MEDS ORDERED: Dextrose 50% Abboject 50 ML SYRINGE SLOW IVP SCH (12:00)
[2017-11-07] MEDS ORDERED: Heparin 1,000 UNITS/ML VIAL ONE (12:00)
--- NOTE | 2017-11-07 12:16 | CON ---
DATE OF CONSULTATION: 11/07/2017 NEPHROLOGY CONSULTATION CONSULTING PHYSICIAN: Dr. Josh Proctor. REASON FOR CONSULTATION: Hyperkalemia, hyponatremia and metabolic acidosis. HISTORY OF PRESENT ILLNESS: This is a very pleasant 77-year-old female who had atrial fibrillation w ith rapid ventilation rate, who was cardioverted into sinus rhythm then had pulseless electrical acti vity. The patient's underlying medical problems include severe CKD as well as sepsis and history of pyelonephritis with staghorn calculus. The patient was admitted yesterday. PAST MEDICAL HISTORY: Significant for NM, history of torsades, history of cardiac arrhythmia, hypert ension, history of stroke, neurogenic bladder, depression, dysphagia, kidney stones, PEG tube, append ectomy, cholecystectomy, asthma, COPD. HOME MEDICATIONS: List reviewed. HOSPITAL MEDICATIONS: Reviewed. ALLERGIES: Reviewed. REVIEW OF SYSTEMS: Unobtainable. PHYSICAL EXAMINATION: GENERAL: On examination, patient is resting. VITAL SIGNS: Afebrile, pulse 96, breathing 16, blood pressure 102/49. HEAD/NECK: Normocephalic. Atraumatic. EYES: EOMI. No deformity. EARS: Clear. No ulcers. NOSE: Intact. No lesions. MOUTH: Clear. No discharge. THROAT: Clear. No exudate. LUNGS: Clear. No crackles. CARDIAC: S1, S2. No rub. ABDOMEN: Benign. BS+. GENITALIA/RECTUM: Cedillo absent. BACK/EXTREMITIES: Edema 0+ Ulcer- NEUROLOGICAL: The patient is resting. SKIN: Rash- Bruise- LYMPHATICS: Edema- Ulcer- LABORATORY DATA: Show hemoglobin 9.4, white count 31,000, bicarbonate 19, potassium 7 and sodium 156 . ASSESSMENT AND RECOMMENDATIONS: 1. Acute kidney injury with chronic kidney disease due to cardiorenal syndrome in the setting of sep sis and multiorgan failure and multiple comorbidities to begin. Overall, prognosis is extremely poor 2. Hypercalcemia. Continue hydration. 3. Hyperkalemia. Discussed risks versus benefits of dialysis. Patient wants to try medical managem ent and has refused dialysis at this time. 4. Hyponatremia. We will start free water and recheck labs again. Overall, prognosis is extremely poor. 5. Lactic acidosis on pressors. 6. Shock liver. Thank you for allowing me to participate in care of this patient.
--- NOTE | 2017-11-07 12:16 | RAD ---
CHEST 1 VIEW: HISTORY: Intubated. COMPARISON: Chest radiograph 11/06/17. FINDINGS: The patient is intubated. The endotracheal tube tip 3.5 cm proximal to the maritza. The internal jug ular central venous catheters are similar in appearance. Ventricular patch is seen projecting over the chest. No pneumothorax. There is consolidation of the left lung base. IMPRESSION: Endotracheal tube tip cranial to the carotid 3.5 cm. POS: [facility]
[2017-11-07] MEDS: Cefepime 2 GM, Syringe 2.5 ML in Sodium Chloride 0.9% 10 ML SLOW IVP SCH (12:38)
--- NOTE | 2017-11-07 14:25 | OP ---
INDICATION OF PROCEDURE: A 77-year-old woman with paroxysmal atrial fibrillation. The patient in [facility] ICU was sedated with 2 mg of IV Versed. The patient was shocked with 120 joules of synchronized el ectricity. The patient converted to normal sinus rhythm. IMPRESSION: Successful electrical cardioversion.
[2017-11-07 14:47] LABS: Lactic Acid 8.3 mmol/L (0.5-2.2)
[2017-11-07 14:50] LABS: Anion Gap 18 mmol/L (10-20); BUN (Urea Nitrogen) 39 mg/dL (9.8-20.1); Calc. Creatinine Clearance 28 mL/min (70-130); Calcium 7.4 mg/dL (7.8-10.44); Carbon Dioxide 13 mmol/L (23-31); Chloride 121 mmol/L (98-107); Estimated GFR-MDRD 21; Glucose 130 mg/dL (83-110); Potassium 4.6 mmol/L (3.5-5.1); Sodium 147 mmol/L (136-145)
[2017-11-07] MEDS: Amiodarone HCl 450 MG, Admixture Fee 1 EACH in Dextrose 5% in Water 250 ML IVPB SCH (20:11)
[2017-11-07] MEDS: Atorvastatin Calcium 40 MG TAB PO SCH (20:31)
--- NOTE | 2017-11-07 21:03 | PDOC.PN ---
- Subjective Encounter Start Date: 11/07/17 Encounter Start Time: 10:00 -: non-verbal Pt seen when Chai blue called. Cardiology saw the patent, cardioverted, then went into PEA a while later. On my arrivla, Dr Proctor was running the code, pt got epi. I informed him of the AM ABG he was not aware of, bcarb given, he asked me to set an airway, pt intubated, see procedure note Pt survived the event, intubated on the vent, hisband updated. No fC overnight , no other acute events. E coli and proteus in both BCx, GNR in urine ROs not obtainable - Objective Resuscitation Status: Resuscitation Status FULL:Full Resuscitation MAR Reviewed: Yes Vital Signs & Weight: Vital Signs (12 hours) Temp Pulse Resp BP Pulse Ox 11/07/17 18:28 91 11/07/17 18:27 91 21 H 100 11/07/17 18:00 98.4 F 11/07/17 14:41 95 116/39 L 11/07/17 14:40 96 23 H 100 11/07/17 13:00 98.5 F 11/07/17 12:00 98 11/07/17 10:55 94 L 11/07/17 10:44 96 102/49 L Weight Admit Weight 191 lb Weight 191 lb 5.78 oz Most Recent Monitor Data Heart Rate from ECG 91 NIBP 138/36 NIBP BP-Mean 62 Respiration from ECG 21 SpO2 100 I&O: 11/06/17 11/07/17 11/08/17 06:59 06:59 06:59 Intake Total 1000 4198 2517 Output Total 1 817 573 Balance 999 3381 1944 Result Diagrams: 11/08/17 05:14 11/08/17 05:14 Radiology Reviewed by me: Yes EKG Reviewed by me: Yes Phys Exam - Physical Examination HEENT: PERRLA, moist MMs, sclera anicteric, oral pharynx no lesions Neck: no nodes, no JVD, supple, full ROM Respiratory: no wheezing, no rales, no rhonchi, clear to auscultation bilateral Cardiovascular: RRR, no significant murmur, no rub Gastrointestinal: soft, no distention, positive bowel sounds Musculoskeletal: pulses present, edema present unable to test Lymphatic: no nodes Skin: no rash, normal turgor, cap refill <2 seconds Dx/Plan (1) UTI (urinary tract infection) with pyuria Code(s): N39.0 - URINARY TRACT INFECTION, SITE NOT SPECIFIED Status: Acute Comment: on Cefepime, awaiting ID and sens (2) E coli bacteremia Code(s): R78.81 - BACTEREMIA Status: Acute (3) Proteus mirabilis infection Code(s): B96.4 - PROTEUS (MIRABILIS) (MORGANII) CAUSING DIS CLASSD ELSWHR Status: Acute (4) Septic shock Code(s): A41.9 - SEPSIS, UNSPECIFIED ORGANISM; R65.21 - SEVERE SEPSIS WITH SEPTIC SHOCK Status: Acute (5) Cardiac arrest Code(s): I46.9 - CARDIAC ARREST, CAUSE UNSPECIFIED Status: Resolved (6) Acute hypoxemic respiratory failure Code(s): J96.01 - ACUTE RESPIRATORY FAILURE WITH HYPOXIA Status: Acute Comment: intubated on vent (7) CAD (coronary artery disease) of artery bypass graft Code(s): I25.810 - ATHEROSCLEROSIS OF CABG W/O ANGINA PECTORIS Status: Chronic Qualifiers: [place] vs. transplanted heart: [place] heart Associated angina: with unstable angina Qualified Code(s): I25.700 - Atherosclerosis of coronary artery bypass graft(s), unspecified, with unstable angina pectoris (8) NSTEMI (non-ST elevated myocardial infarction) Code(s): I21.4 - NON-ST ELEVATION (NSTEMI) MYOCARDIAL INFARCTION Status: Acute Comment: trop > 40 now (9) Dyslipidemia Code(s): E78.5 - HYPERLIPIDEMIA, UNSPECIFIED Status: Chronic Comment: Lipid profile this am, Lipitor 40mg HS (10) HTN (hypertension) Code(s): I10 - ESSENTIAL (PRIMARY) HYPERTENSION Status: Chronic Qualifiers: Hypertension type: essential hypertension Qualified Code(s): I10 - Essential (primary) hypertension Comment: Stable currently, adjust BP regimen prior to d/c (11) History of intracranial hemorrhage Code(s): Z86.79 - PERSONAL HISTORY OF OTHER DISEASES OF THE CIRCULATORY SYSTEM Status: Chronic Comment: s/p ICH 10 years ago, stable currently - Plan cont current plan of care, plan discussed w/ family * .
[2017-11-08] MEDS: Cefepime 2 GM, Syringe 2.5 ML in Sodium Chloride 0.9% 10 ML SLOW IVP SCH ×2 (00:33→12:52)
[2017-11-08] MEDS ORDERED: Sodium Bicarbonate 100 MEQ in Dextrose 5% in Water 1,000 ML IV SCH (05:30)
[2017-11-08 05:57] LABS: ALT (SGPT) 1071 U/L (8-55); AST (SGOT) 2306 U/L (5-34); Alkaline Phosphatase 187 U/L (40-150); Anion Gap 10 mmol/L (10-20); BUN (Urea Nitrogen) 45 mg/dL (9.8-20.1); Bilirubin, Total 1.7 mg/dL (0.2-1.2); Calc. Creatinine Clearance 29 mL/min (70-130); Calcium 7.1 mg/dL (7.8-10.44); Carbon Dioxide 23 mmol/L (23-31); Chloride 116 mmol/L (98-107); Estimated GFR-MDRD 20; Globulin 2.5 g/dL (2.4-3.5); Glucose 125 mg/dL (83-110); Protein, Total 4.5 g/dL (6.0-8.3); Sodium 146 mmol/L (136-145)
[2017-11-08 06:10] LABS: Band 16 % (5-11); Hemoglobin 8.4 g/dL (12.0-16.0); Lymphocytes 9 % (21-51); MDiff Complete? YES; Mean Corpuscular HGB CONC 33.8 g/dL (32.0-36.0); Mean Corpuscular Hemoglobin 33.2 pg (27.0-31.0); Mean Corpuscular Volume 98.3 fl (81.0-99.0); Mean Platelet Volume 8.3 fL (7.4-10.4); Neutrophil 75 % (42-75); PLT Morphology Comment Appears Decreased; Platelet Count 88 thou/uL (130-400); RBC Distribution Width 13.3 % (11.5-14.5); Red Blood Cell (RBC) Count 2.52 mill/uL (4.20-5.40); White Blood Cell (WBC) Count 14.8 thou/uL (4.8-10.8)
[2017-11-08 06:21] LABS: Actual Bicarbonate (HCO3a) 19.7 mEq/L (22-26); Base Excess (BEa) -2.4 mEq/L (0 (+/-) 2.5); CO2 Tension 24.3 mmHg (35.0-45.0); O2 Tension (PaO2) 95.2 mmHg (80.0-100.0); pH, Arterial 7.53 (7.35-7.45)
[2017-11-08 06:22] LABS: Hematocrit-ABG 23.5 % (36.0-47.0); Hemoglobin (Hb) 7.8 g/dL (12.0-16.0); Puncture Site LRA
[2017-11-08 06:23] LABS: ALV-art Gradient 302.225 (0-20)
[2017-11-08] MEDS: Clopidogrel Bisulfate 75 MG TAB PO SCH (08:18)
[2017-11-08] MEDS: Polyethylene Glycol 3350 17 GM Packet PO SCH (08:18)
[2017-11-08] MEDS: Senokot S 8.6-50 MG TAB PO SCH ×2 (08:19→20:38)
[2017-11-08] MEDS: Famotidine 20 MG TAB PO SCH (08:26)
--- NOTE | 2017-11-08 08:39 | ULT ---
ULTRASOUND RENAL BILATERAL STANDARD: HISTORY: Evaluate for hydronephrosis or abscess. COMPARISON: CT abdomen and pelvis prior day. FINDINGS: The right kidney measures 10.8 x 5.7 x 3.1 cm. The left kidney measures 13.2 x 7.5 x 9.9 cm. Large left-sided renal cyst. Large calculus in the collecting system of the right kidney. IMPRESSION: No new imaging findings from the recent CT examination. Large left renal cyst and large right stagho rn calculus. POS: VITOR
--- NOTE | 2017-11-08 09:45 | PRG ---
DATE OF SERVICE: 11/08/2017 SUBJECTIVE: Shortly after I saw the patient yesterday morning, she had cardiac arrhythmias and ultimately had to be coded and intubated and she has remained this since yesterday. Her does report that she was able to be awake and responding at one point yesterday after intubation, but not since then. PHYSICAL EXAMINATION: VITAL SIGNS: Objective stephens, her vitals remained stable since the Codeine episode and she has been able to stay off of the Levophed with blood pressures in 110s for systolic and heart rate in the 80s. Urine output has actually been excellent overnight and is clear yellow in the tube. GENERAL: She is intubated and is not able to open her eyes or respond to stimulus. ABDOMEN: However, on examining her abdomen, it was softly distended and there was some guarding noted. She has some mild anasarca. LABORATORY DATA AND IMAGING DATA: Laboratory values reveal white count has gone significantly down to 14.8 from 31. Her creatinine has gone up to 2.33 from 2.25. A renal ultrasound was reviewed personally and reveals superior pole dilatation that when compared to the CT appears similar and left renal cyst. Otherwise no obvious hydronephrosis or abscess. Her urine cultures have grown out E. coli and possible Klebsiella versus Enterococcus and her blood cultures have grown out E. coli and Proteus, all of which are sensitive to cefepime. ASSESSMENT AND PLAN: We have a 77-year-old female in critical condition secondary to worsening cardiac status with a known right staghorn and urosepsis that appears to be improving on antibiotics. I ordered the renal ultrasound because there was discussion regarding placing a percutaneous nephrostomy tube. Given that she had been on Plavix prior to admission and she is still on this , I think the risks outweigh what would be the perceived benefits as I am not suspicious for obstruction or abscess at this time. I would recommend keeping her on a reversible anticoagulant at this time in case there is concern for infection related to the kidney, but I would not recommend intervention at this time. Continue IV antibiotics and the excellent supportive care that she has been getting. ALIREZA
--- NOTE | 2017-11-08 11:06 | PRG ---
DATE OF SERVICE: 11/08/2017 NEPHROLOGY PROGRESS NOTE SUBJECTIVE: This is a 77-year-old female being seen for acute kidney injury. The patient is intubated. PHYSICAL EXAMINATION: GENERAL: Patient is resting. VITAL SIGNS: Afebrile, pulse 90, breathing 16, blood pressure 115/68. HEAD/NECK: Normocephalic. Atraumatic. EYES: EOMI. No deformity. EARS: Clear. No ulcers. NOSE: Intact. No lesions. MOUTH: Clear. No discharge. THROAT: Clear. No exudate. LUNGS: Clear. No crackles. CARDIAC: S1, S2. No rub. ABDOMEN: Benign. BS+. GENITALIA/RECTUM: [place] present. BACK/EXTREMITIES: Edema 0+ Ulcer- SKIN: Rash- Bruise- LYMPHATICS: Edema- Ulcer- LABORATORY DATA: Show hemoglobin 8.4, sodium 146, creatinine 2.3. ASSESSMENT AND RECOMMENDATIONS: 1. Acute kidney injury with chronic kidney disease, stage IV, stable. Continue supportive care. 2. Anemia, stable. 3. Multiorgan failure. 4. Hypokalemia. Recommend potassium supplementation, very low dose. 5. Hypernatremia. Continue free fluid. 6. Hypercalcemia, resolved. 7. Shock liver 8. Respiratory failure, cardiogenic failure. Continue supportive care. Prognosis remains extremely poor. MTDD
--- NOTE | 2017-11-08 11:14 | PRG ---
DATE OF SERVICE: 11/08/2017 SERVICE: Pulmonary Medicine. INTERVAL HISTORY: The patient is doing fantastic from a respiratory standpoint. She denies any ches t pain, fevers, chills, nausea or vomiting. Her brain is waking up a little bit. She is following a ll commands. There were no overnight events. She has cleared her acidosis. PHYSICAL EXAMINATION: VITAL SIGNS: Afebrile, pulse 90, blood pressure 115/68, respirations 16, saturation 100% on 43% FiO2 and PEEP of 5. GENERAL: The patient is intubated under the influence of minimal sedation. HEENT: Normocephalic, atraumatic. Sclerae are white, conjunctivae pink. Oral mucosa is moist witho ut lesions. LUNGS: Decent air entry. There are rhonchi present bilaterally. Crackles are also evident. No whe ezing. HEART: Normal rate, regular. ABDOMEN: Soft, nontender, nondistended. Bowel sounds are positive. MUSCULOSKELETAL: No cyanosis or clubbing. There is trace pitting in the bilateral lower extremities . NEUROLOGIC: Grossly nonfocal. LABORATORY DATA: WBC 14.8, hemoglobin 8.4 and trending downward slowly. Platelets 88,000, bands 16% and improving. A pH 7.53, pCO2 24, pO2 95. Creatinine 2.33 and BUN 45. Sodium 146 and down trendi ng, potassium 3.0, chloride 116 and also down trending. AST and ALT have increased. Total bilirubin 1.7 and up trending. Urinalysis is currently unremarkable. There are multiple gram negative rods g rowing in the urine and blood. IMAGING DATA: Renal ultrasound demonstrates no new imaging findings on the recent CT examination. La rge left renal cyst and large right staghorn calculus. ASSESSMENT: 1. Acute hypoxic respiratory failure. 2. Anion gap metabolic acidosis, resolved. 3. Septic shock secondary to infection. 4. Pyelonephritis with staghorn calculi. 5. Pulseless electrical activity with return of circulation and neurologic function. 6. Non-ST elevation myocardial infarction. 7. Hyperkalemia, resolved. 8. Debility. PLAN: I will give a dose of potassium today. We recheck a level this afternoon as I do not want to be too terribly aggressive with that. We will drop her IV fluids to 50 an hour and switch her over t o 1 amp of bicarbonate. I will initiate tube feeds. I have adjusted her ventilator settings in orde r to back off on the support to have a fairly significant degree. Overall, she is moving in the right direction. Pulmonary or Critical Care will continue to follow. CRITICAL CARE TIME: 30 minutes.
[2017-11-08] MEDS: Sodium Bicarbonate 50 MEQ in Dextrose 5% in Water 1,000 ML IV SCH (11:32)
[2017-11-08] MEDS: Amiodarone HCl 450 MG, Admixture Fee 1 EACH in Dextrose 5% in Water 250 ML IVPB SCH (11:33)
--- NOTE | 2017-11-08 13:18 | PDOC.PN ---
- Subjective Encounter Start Date: 11/08/17 Encounter Start Time: 10:45 -: non-verbal Pt sedated and orally intbated. stable overnight. numerically much improved today No acute events. at bedside and updated no fevers, no chills or rigors, no D/C, no bleeding noted. - Objective Resuscitation Status: Resuscitation Status FULL:Full Resuscitation MAR Reviewed: Yes Vital Signs & Weight: Vital Signs (12 hours) Pulse Resp BP Pulse Ox 11/08/17 13:15 93 27 H 100 11/08/17 12:00 22 H 11/08/17 11:13 92 120/60 11/08/17 10:55 27 H 11/08/17 10:00 16 11/08/17 08:00 15 11/08/17 05:58 86 101/54 L 11/08/17 05:55 87 21 H 100 11/08/17 04:00 21 H 11/08/17 02:25 87 Weight Admit Weight 191 lb Weight 202 lb 6.15 oz Most Recent Monitor Data Heart Rate from ECG 90 NIBP 116/60 NIBP BP-Mean 77 Respiration from ECG 21 SpO2 100 I&O: 11/07/17 11/08/17 11/09/17 06:59 06:59 06:59 Intake Total 4198 3974.9 598 Output Total 817 1098 505 Balance 3381 2876.9 93 Result Diagrams: 11/08/17 05:14 11/08/17 05:14 Radiology Reviewed by me: Yes EKG Reviewed by me: Yes Phys Exam - Physical Examination Constitutional: NAD HEENT: PERRLA, moist MMs, sclera anicteric, oral pharynx no lesions oral ETT and OGT Neck: no nodes, no JVD, supple, full ROM Respiratory: no wheezing, no rales, no rhonchi, clear to auscultation bilateral Cardiovascular: RRR, no significant murmur, no rub Gastrointestinal: soft, no distention, positive bowel sounds Musculoskeletal: pulses present, edema present Lymphatic: no nodes Skin: no rash, normal turgor, cap refill <2 seconds Dx/Plan (1) UTI (urinary tract infection) with pyuria Code(s): N39.0 - URINARY TRACT INFECTION, SITE NOT SPECIFIED Status: Acute Comment: on Cefepime, awaiting ID and sens (2) E coli bacteremia Code(s): R78.81 - BACTEREMIA Status: Acute (3) Proteus mirabilis infection Code(s): B96.4 - PROTEUS (MIRABILIS) (MORGANII) CAUSING DIS CLASSD ELSWHR Status: Acute Comment: both Bcx with E coli and proteus. UCxwith E coli and Kleb or EB. CCM at present, can streamline soon to levoflox or ropcehin (4) Septic shock Code(s): A41.9 - SEPSIS, UNSPECIFIED ORGANISM; R65.21 - SEVERE SEPSIS WITH SEPTIC SHOCK Status: Acute (5) Cardiac arrest Code(s): I46.9 - CARDIAC ARREST, CAUSE UNSPECIFIED Status: Resolved (6) Acute hypoxemic respiratory failure Code(s): J96.01 - ACUTE RESPIRATORY FAILURE WITH HYPOXIA Status: Acute Comment: intubated on vent (7) CAD (coronary artery disease) of artery bypass graft Code(s): I25.810 - ATHEROSCLEROSIS OF CABG W/O ANGINA PECTORIS Status: Chronic Qualifiers: [place] vs. transplanted heart: [place] heart Associated angina: with unstable angina Qualified Code(s): I25.700 - Atherosclerosis of coronary artery bypass graft(s), unspecified, with unstable angina pectoris (8) NSTEMI (non-ST elevated myocardial infarction) Code(s): I21.4 - NON-ST ELEVATION (NSTEMI) MYOCARDIAL INFARCTION Status: Acute Comment: trop > 40 now (9) Dyslipidemia Code(s): E78.5 - HYPERLIPIDEMIA, UNSPECIFIED Status: Chronic Comment: Lipid profile this am, Lipitor 40mg HS (10) HTN (hypertension) Code(s): I10 - ESSENTIAL (PRIMARY) HYPERTENSION Status: Chronic Qualifiers: Hypertension type: essential hypertension Qualified Code(s): I10 - Essential (primary) hypertension Comment: Stable currently, adjust BP regimen prior to d/c (11) History of intracranial hemorrhage Code(s): Z86.79 - PERSONAL HISTORY OF OTHER DISEASES OF THE CIRCULATORY SYSTEM Status: Chronic Comment: s/p ICH 10 years ago, stable currently - Plan * .
[2017-11-08 14:56] LABS: Potassium 3.9 mmol/L (3.5-5.1)
[2017-11-08] MEDS ORDERED: cefOXitin 1 GM in Sodium Chloride 0.9% 100 ML IVPB SCH (17:45)
[2017-11-08] MEDS: cefOXitin Sodium 1 GM, Syringe 0.5 ML in Sterile Water 10 ML SLOW IVP SCH (19:25)
[2017-11-08] MEDS: Atorvastatin Calcium 40 MG TAB PO SCH (20:38)
[2017-11-09] MEDS: Amiodarone HCl 450 MG, Admixture Fee 1 EACH in Dextrose 5% in Water 250 ML IVPB SCH ×2 (01:59→19:29)
[2017-11-09] MEDS: cefOXitin Sodium 1 GM, Syringe 0.5 ML in Sterile Water 10 ML SLOW IVP SCH ×3 (01:59→21:54)
[2017-11-09] MEDS: Sodium Bicarbonate 50 MEQ in Dextrose 5% in Water 1,000 ML IV SCH (05:36)
[2017-11-09] MEDS: Furosemide 40 MG/4 ML VIAL SLOW IVP SCH (05:36)
[2017-11-09 05:52] LABS: ALT (SGPT) 835 U/L (8-55); AST (SGOT) 1194 U/L (5-34); Albumin 2.3 g/dL (3.4-4.8); Alkaline Phosphatase 218 U/L (40-150); Anion Gap 10 mmol/L (10-20); Bilirubin, Total 1.7 mg/dL (0.2-1.2); Calc. Creatinine Clearance 29 mL/min (70-130); Calcium 7.4 mg/dL (7.8-10.44); Carbon Dioxide 26 mmol/L (23-31); Chloride 112 mmol/L (98-107); Estimated GFR-MDRD 20; Globulin 2.9 g/dL (2.4-3.5); Glucose 104 mg/dL (83-110); Protein, Total 5.2 g/dL (6.0-8.3); Sodium 145 mmol/L (136-145)
[2017-11-09 05:56] LABS: Potassium 2.8 mmol/L (3.5-5.1)
[2017-11-09 05:59] LABS: Band 3 % (5-11); Hemoglobin 9.4 g/dL (12.0-16.0); Lymphocytes 19 % (21-51); MDiff Complete? YES; Mean Corpuscular HGB CONC 33.4 g/dL (32.0-36.0); Mean Corpuscular Hemoglobin 31.9 pg (27.0-31.0); Mean Corpuscular Volume 95.5 fl (81.0-99.0); Mean Platelet Volume 8.8 fL (7.4-10.4); Monocytes 1 % (0-10); Neutrophil 77 % (42-75); PLT Morphology Comment Appears Decreased; Platelet Count 76 thou/uL (130-400); RBC Distribution Width 13.5 % (11.5-14.5); Red Blood Cell (RBC) Count 2.93 mill/uL (4.20-5.40); White Blood Cell (WBC) Count 12.7 thou/uL (4.8-10.8)
[2017-11-09 06:11] LABS: BUN (Urea Nitrogen) 41 mg/dL (9.8-20.1)
[2017-11-09] MEDS: Potassium Chloride 40 MEQ in Premix Bag 1 BAG IVPB SCH ×2 (06:26→11:11)
[2017-11-09] MEDS: Clopidogrel Bisulfate 75 MG TAB PO SCH (08:34)
[2017-11-09] MEDS: Senokot S 8.6-50 MG TAB PO SCH (08:34)
[2017-11-09] MEDS: Polyethylene Glycol 3350 17 GM Packet PO SCH (08:34)
[2017-11-09] MEDS: Famotidine 20 MG TAB PO SCH (08:34)
[2017-11-09 10:56] LABS: Actual Bicarbonate (HCO3a) 26.3 mEq/L (22-26); Base Excess (BEa) 4.4 mEq/L (0 (+/-) 2.5); CO2 Tension 29.5 mmHg (35.0-45.0); Calcium, Ionized 1.1 mmol/L (1.12-1.30); Hematocrit-ABG 29.5 % (36.0-47.0); O2 Tension (PaO2) 87.7 mmHg (80.0-100.0); pH, Arterial 7.57 (7.35-7.45)
[2017-11-09 10:57] LABS: ALV-art Gradient 137.385 (0-20); Puncture Site RR
--- NOTE | 2017-11-09 13:43 | PDOC.PN ---
- Subjective Encounter Start Date: 11/09/17 Encounter Start Time: 14:50 -: non-verbal Subjective: Sedated on vent - Objective Resuscitation Status: Resuscitation Status FULL:Full Resuscitation MAR Reviewed: Yes Vital Signs & Weight: Vital Signs (12 hours) Temp Pulse Resp BP Pulse Ox 11/09/17 13:17 93 131/72 11/09/17 12:00 98.9 F 17 11/09/17 10:44 97 129/67 11/09/17 10:00 13 11/09/17 08:00 98.7 F 100 21 H 100 11/09/17 07:15 97 148/71 H 11/09/17 06:00 23 H 11/09/17 04:00 98.4 F 20 11/09/17 02:16 95 11/09/17 02:00 19 Weight Admit Weight 191 lb Weight 203 lb 0.732 oz Most Recent Monitor Data Heart Rate from ECG 97 NIBP 131/72 NIBP BP-Mean 85 Respiration from ECG 22 SpO2 100 I&O: 11/08/17 11/09/17 11/10/17 06:59 06:59 06:59 Intake Total 3974.9 2283 340 Output Total 1098 3785 3850 Balance 2876.9 -1502 -3510 Result Diagrams: 11/09/17 04:25 11/09/17 13:31 Phys Exam - Physical Examination sedated on vent HEENT: moist MMs Respiratory: no wheezing, no rales, no rhonchi Cardiovascular: RRR Gastrointestinal: soft, positive bowel sounds Musculoskeletal: no edema moving limbs a bit, but not to command Deviation from normal: restless with stimulation but not opening eyes Dx/Plan (1) UTI (urinary tract infection) with pyuria Code(s): N39.0 - URINARY TRACT INFECTION, SITE NOT SPECIFIED Status: Acute Comment: E. coli and K. pneu. with mult resistances, on Cefoxitin. Staghorn calculus in kidney (2) E coli bacteremia Code(s): R78.81 - BACTEREMIA Status: Acute Comment: E. coli and Proteus both mostly sensitive (3) Acute hypoxemic respiratory failure Code(s): J96.01 - ACUTE RESPIRATORY FAILURE WITH HYPOXIA Status: Acute Comment: intubated on vent (4) Septic shock Code(s): A41.9 - SEPSIS, UNSPECIFIED ORGANISM; R65.21 - SEVERE SEPSIS WITH SEPTIC SHOCK Status: Acute (5) Cardiac arrest Code(s): I46.9 - CARDIAC ARREST, CAUSE UNSPECIFIED Status: Resolved (6) NSTEMI (non-ST elevated myocardial infarction) Code(s): I21.4 - NON-ST ELEVATION (NSTEMI) MYOCARDIAL INFARCTION Status: Acute Comment: trop > 40 now (7) CAD (coronary artery disease) of artery bypass graft Code(s): I25.810 - ATHEROSCLEROSIS OF CABG W/O ANGINA PECTORIS Status: Chronic Qualifiers: [place] vs. transplanted heart: [place] heart Associated angina: with unstable angina Qualified Code(s): I25.700 - Atherosclerosis of coronary artery bypass graft(s), unspecified, with unstable angina pectoris (8) Dyslipidemia Code(s): E78.5 - HYPERLIPIDEMIA, UNSPECIFIED Status: Chronic Comment: Lipid profile this am, Lipitor 40mg HS (9) HTN (hypertension) Code(s): I10 - ESSENTIAL (PRIMARY) HYPERTENSION Status: Chronic Qualifiers: Hypertension type: essential hypertension Qualified Code(s): I10 - Essential (primary) hypertension Comment: Stable currently, adjust BP regimen prior to d/c - Plan cont current plan of care, continue antibiotics, respiratory therapy wean vent as directed by pulmonology * . - Discharge Day Encounter end time: 15:00
[2017-11-09 14:02] LABS: Potassium 3.9 mmol/L (3.5-5.1)
--- NOTE | 2017-11-09 20:21 | PRG ---
DATE OF SERVICE: 11/09/2017 SUBJECTIVE: Patient was seen and examined. She was intubated. at the bedside. OBJECTIVE: GENERAL: This is a well-built female, intubated. VITAL SIGNS: Temperature 98.9, pulse 95, respiratory rate 18 and blood pressure 126/65. HEENT: Intubated. NECK: Supple. CARDIOVASCULAR: S1, S2 heard. RESPIRATORY: Clear. GASTROINTESTINAL: Abdomen is soft. MUSCULOSKELETAL: No edema. DERMATOLOGIC: No skin rash. NEUROLOGIC: Intubated and sedated. PSYCHIATRIC: Mood and affect normal. LABORATORY DATA: Potassium is 3.9, BUN is 41, creatinine is 2.3 from 2.3 and she is making a lot of urine, almost 4 liters. ASSESSMENT AND PLAN: 1. Acute kidney injury on chronic kidney disease stage 3. Renal function is stable. It seems like improving with good amount of urine output. We will continue to monitor. Avoid nephrotoxins. 2. Multiorgan failure. 3. Hypernatremia. 4. Hypercalcemia. 5. Respiratory failure. 6. Anemia. 7. Respiratory alkalosis per critical care team. 8. Avoid nephrotoxins. Renal function seems to be improving. We will follow. MTDD
[2017-11-10] MEDS: Senokot S 8.6-50 MG TAB PO SCH ×3 (00:54→21:44)
[2017-11-10] MEDS: Atorvastatin Calcium 20 MG TAB PO SCH ×2 (00:54→21:44)
[2017-11-10 05:55] LABS: ALT (SGPT) 569 U/L (8-55); AST (SGOT) 505 U/L (5-34); Albumin 2.5 g/dL (3.4-4.8); Alkaline Phosphatase 227 U/L (40-150); Anion Gap 12 mmol/L (10-20); BUN (Urea Nitrogen) 34 mg/dL (9.8-20.1); Bilirubin, Total 1.7 mg/dL (0.2-1.2); Calc. Creatinine Clearance 36 mL/min (70-130); Calcium 7.8 mg/dL (7.8-10.44); Carbon Dioxide 29 mmol/L (23-31); Chloride 107 mmol/L (98-107); Estimated GFR-MDRD 26; Globulin 3.1 g/dL (2.4-3.5); Glucose 83 mg/dL (83-110); Protein, Total 5.6 g/dL (6.0-8.3); Sodium 145 mmol/L (136-145)
[2017-11-10 05:58] LABS: Potassium 2.8 mmol/L (3.5-5.1)
[2017-11-10 06:19] LABS: Band 10 % (5-11); Eosinophils 2 % (0-10); Hemoglobin 9.7 g/dL (12.0-16.0); Lymphocytes 24 % (21-51); MDiff Complete? YES; Mean Corpuscular HGB CONC 32.3 g/dL (32.0-36.0); Mean Corpuscular Hemoglobin 31.6 pg (27.0-31.0); Monocytes 17 % (0-10); Neutrophil 46 % (42-75); PLT Morphology Comment Appears Decreased; Platelet Count 70 thou/uL (130-400); RBC Distribution Width 13.5 % (11.5-14.5); Reactive Lymphocytes 1 % (0-10); Red Blood Cell (RBC) Count 3.06 mill/uL (4.20-5.40); White Blood Cell (WBC) Count 9.3 thou/uL (4.8-10.8)
[2017-11-10] MEDS: Sodium Chloride 0.45% 1,000 ML IV SCH ×2 (06:55→17:00)
[2017-11-10] MEDS: Furosemide 40 MG/4 ML VIAL SLOW IVP SCH (06:56)
[2017-11-10] MEDS: cefOXitin Sodium 1 GM, Syringe 0.5 ML in Sterile Water 10 ML SLOW IVP SCH ×4 (06:56→22:05)
[2017-11-10] MEDS ORDERED: Potassium Chloride 40 MEQ in Premix Bag 1 BAG IVPB SCH (07:00)
[2017-11-10] MEDS: Clopidogrel Bisulfate 75 MG TAB PO SCH (08:43)
--- NOTE | 2017-11-10 08:43 | PRG ---
DATE OF SERVICE: 11/09/2017 SUBJECTIVE: Ms. Ornelas is doing well overnight. Events over the weekend have been reviewed. She is down to an IMV of 4 with volume ventilation and pressure support. Respiratory rates in the 20 s, blood pressure 126/69, heart rate is 97. She is growing E. coli and Proteus out of her urine and blood. OBJECTIVE: LUNGS: Clear. HEART: Regular rhythm. S1 and S2 are normal. ABDOMEN: Soft. EXTREMITIES: Without asymmetry. NEUROLOGIC: Nonfocal. She wiggles her toes, but she would not move her upper extremities for me. S he would not open her eyes for me. LABORATORY DATA: White count is down to 12.7, was 34.5 on admission. She had 28% bands when she was admitted. She is down to 3% bands. Creatinine was 1.26 on the , it is 2.31 now, it peaked at 2.33 yesterday. Potassium is 2.8. A pH 7.57, CO2 29, and pO2 87. IMPRESSION: 1. Respiratory failure associated with urinary tract sepsis. 2. Staghorn calculus ? colonized with Proteus now and/or Escherichia coli. 3. Respiratory failure. Her acid base disorder is improved, so hopefully we can consider weaning an d extubation in the morning. 4. Encephalopathy. This will have to improve a little bit before we can extubate her. 5. History of torsades, requiring intubation recently. 6. Status post code on 11/07/2017, which likely explains her encephalopathy, met with the an d answered all of his questions. Critical care time was 30 minutes.
[2017-11-10] MEDS: Famotidine 20 MG TAB PO SCH (08:44)
--- NOTE | 2017-11-10 10:23 | PDOC.PN ---
- Subjective Encounter Start Date: 11/10/17 Encounter Start Time: 15:45 -: non-verbal Subjective: Patient more arousable today, on vent. - Objective Resuscitation Status: Resuscitation Status FULL:Full Resuscitation MAR Reviewed: Yes Vital Signs & Weight: Vital Signs (12 hours) Temp Pulse Resp BP Pulse Ox 11/10/17 10:18 104 H 117/75 11/10/17 10:00 25 H 11/10/17 09:00 98.0 F 11/10/17 08:00 26 H 11/10/17 06:46 96 143/74 H 11/10/17 06:44 96 24 H 100 11/10/17 06:00 20 11/10/17 04:00 98.1 F 20 11/10/17 02:25 98 129/67 11/10/17 02:00 20 11/10/17 00:28 100 137/74 11/10/17 00:00 22 H Weight Admit Weight 191 lb Weight 203 lb 0.732 oz Most Recent Monitor Data Heart Rate from ECG 105 NIBP 117/75 NIBP BP-Mean 88 Respiration from ECG 33 SpO2 100 I&O: 11/09/17 11/10/17 11/11/17 06:59 06:59 06:59 Intake Total 2283 1671 Output Total 4187 8282 580 [facility]1502 -6579 -580 Result Diagrams: 11/10/17 04:25 11/10/17 04:25 Phys Exam - Physical Examination Constitutional: NAD HEENT: moist MMs Respiratory: no wheezing, no rales, no rhonchi Cardiovascular: RRR Gastrointestinal: soft, positive bowel sounds moves left foot to command Deviation from normal: on vent, more arousable to voice Dx/Plan (1) UTI (urinary tract infection) with pyuria Code(s): N39.0 - URINARY TRACT INFECTION, SITE NOT SPECIFIED Status: Acute Comment: E. coli and K. pneu. with mult resistances, on Cefoxitin. Staghorn calculus in kidney (2) E coli bacteremia Code(s): R78.81 - BACTEREMIA Status: Acute Comment: E. coli and Proteus both mostly sensitive (3) Acute hypoxemic respiratory failure Code(s): J96.01 - ACUTE RESPIRATORY FAILURE WITH HYPOXIA Status: Acute Comment: intubated on vent (4) Septic shock Code(s): A41.9 - SEPSIS, UNSPECIFIED ORGANISM; R65.21 - SEVERE SEPSIS WITH SEPTIC SHOCK Status: Acute (5) Cardiac arrest Code(s): I46.9 - CARDIAC ARREST, CAUSE UNSPECIFIED Status: Resolved (6) NSTEMI (non-ST elevated myocardial infarction) Code(s): I21.4 - NON-ST ELEVATION (NSTEMI) MYOCARDIAL INFARCTION Status: Acute Comment: trop > 40 now (7) CAD (coronary artery disease) of artery bypass graft Code(s): I25.810 - ATHEROSCLEROSIS OF CABG W/O ANGINA PECTORIS Status: Chronic Qualifiers: [place] vs. transplanted heart: [place] heart Associated angina: with unstable angina Qualified Code(s): I25.700 - Atherosclerosis of coronary artery bypass graft(s), unspecified, with unstable angina pectoris (8) Dyslipidemia Code(s): E78.5 - HYPERLIPIDEMIA, UNSPECIFIED Status: Chronic Comment: Lipid profile this am, Lipitor 40mg HS (9) HTN (hypertension) Code(s): I10 - ESSENTIAL (PRIMARY) HYPERTENSION Status: Chronic Qualifiers: Hypertension type: essential hypertension Qualified Code(s): I10 - Essential (primary) hypertension Comment: Stable currently, adjust BP regimen prior to d/c (10) Acute renal failure (ARF) Status: Acute Qualifiers: Acute renal failure type: with acute tubular necrosis Qualified Code(s): N17.0 - Acute kidney failure with tubular necrosis Comment: Improving, now diuresing and wasting potassium, replete as needed (11) Hypokalemia Code(s): E87.6 - HYPOKALEMIA Status: Acute Comment: replete as needed - Plan cont current plan of care, continue antibiotics, respiratory therapy wean vent as tolerated per pulmonology * . - Discharge Day Encounter end time: 16:00
--- NOTE | 2017-11-10 14:28 | PRG ---
DATE OF SERVICE: 11/10/2017 SUBJECTIVE: Ms. Ornelas continues to be intubated. She is off all pressor agents. She is currentl y on amiodarone for atrial fibrillation. She is awake, but not following commands. She does awaken to voice. OBJECTIVE: VITAL SIGNS: Blood pressure 140/80, pulse 105, respirations 20. LUNGS: Clear to auscultation. CARDIAC: Regular rate and rhythm. ABDOMEN: Soft, nontender, nondistended. EXTREMITIES: No edema. PERTINENT LABORATORY DATA: Hemoglobin 9.7, potassium 2.8, creatinine 1.87. IMPRESSION: 1. Sepsis syndrome. 2. Recent stent placement. 3. Previous torsades de pointes. 4. Atrial fibrillation. RECOMMENDATIONS: She is off all pressor agents. She is currently on amiodarone therapy, but appears to be in sinus rhythm. She did have a history of torsades de pointes, but refused LifeVest. Her hu sband states due to her dementia and limited mobility, she is unable to use the LifeVest while at [facility]. We will continue antibiotic therapy and supportive care.
[2017-11-10] MEDS: Polyethylene Glycol 3350 17 GM Packet PO SCH (14:37)
--- NOTE | 2017-11-10 16:37 | PRG ---
DATE OF SERVICE: 11/10/2017 NEPHROLOGY PROGRESS NOTE SUBJECTIVE: Patient was seen and examined in ICU. The patient remains intubated. OBJECTIVE: GENERAL: This is a well-built female, intubated in the ICU. VITAL SIGNS: Temperature 98.3, pulse 106, respiratory rate 29, blood pressure 144/84. HEENT: Atraumatic, normocephalic. Oral mucosa is moist. NECK: Supple. CARDIOVASCULAR: S1, S2 heard. Rate and rhythm regular. RESPIRATORY: Clear to auscultation. GASTROINTESTINAL: Abdomen is soft. MUSCULOSKELETAL: No tenderness. No edema. DERMATOLOGIC: No skin rash. NEUROLOGIC: Intubated. LABORATORY DATA: Potassium is 2.8, BUN is 34, creatinine is 1.8. ASSESSMENT AND PLAN: 1. Acute kidney injury on chronic kidney disease stage 3 with significant improved. Avoid nephrotox ins, monitor. 2. Hypokalemia, replace and monitor. 3. Hypercalcemia. 4. Anemia. 5. Respiratory alkalosis. 6. Renal function is much better with good urine output. We will monitor.
[2017-11-10 16:55] LABS: Magnesium 1.4 mg/dL (1.6-2.6); Phosphorus 2.1 mg/dL (2.3-4.7); Potassium 3.1 mmol/L (3.5-5.1)
[2017-11-10] MEDS ORDERED: Magnesium 2 GM/NS 0.9% 50 ML 2 GM in Premix Bag 1 BAG IVPB SCH (18:30)
[2017-11-10] MEDS ORDERED: Potassium Phosphate 40 MMOL in Sodium Chloride 0.9% 500 ML IVPB SCH (18:30)
--- NOTE | 2017-11-10 21:34 | PRG ---
DATE OF SERVICE: 11/10/2017 SUBJECTIVE: Ms. Ornelas is more alert today. She would open her eyes to voice, but she just did no t stay awake as long as I would like for extubation. She did have a positive leak test. OBJECTIVE: LUNGS: Clear. HEART: Regular rhythm. ABDOMEN: Soft. LABORATORY DATA: White count 9.3, hemoglobin 9.7, platelets 70,000. Sodium 145, potassium 2.8 up to 3.1 after replacement, chloride 107, bicarbonate 29, BUN 34, creatini ne 1.87. IMPRESSION: 1. Encephalopathy after an arrest. She is awakening more and more so I suspect her encephalopathy, we will continue to improve. Polymicrobial urinary tract infection with bacteremia with Escherichia coli and Proteus mirabilis in the setting of a staghorn calculus. 2. Atrial fibrillation. 3. Recent coronary stent. 4. Recent admission with torsades requiring intubation. 5. Dementia and deconditioning prior to admission. Hopefully, we can get her extubated within 24-48 hours. Critical care time 30 minutes.
[2017-11-10] MEDS: Acetaminophen 500 MG TAB PO PRN (23:07)
[2017-11-11] MEDS: cefOXitin Sodium 1 GM, Syringe 0.5 ML in Sterile Water 10 ML SLOW IVP SCH ×3 (07:00→22:24)
[2017-11-11] MEDS: Furosemide 40 MG/4 ML VIAL SLOW IVP SCH (07:00)
[2017-11-11 07:49] LABS: Mean Corpuscular HGB CONC 32.6 g/dL (32.0-36.0); Mean Corpuscular Hemoglobin 31.9 pg (27.0-31.0); Mean Corpuscular Volume 97.9 fl (81.0-99.0); Mean Platelet Volume 9.2 fL (7.4-10.4); Platelet Count 106 thou/uL (130-400); RBC Distribution Width 13.3 % (11.5-14.5); Red Blood Cell (RBC) Count 3.14 mill/uL (4.20-5.40); White Blood Cell (WBC) Count 10.7 thou/uL (4.8-10.8)
[2017-11-11 07:54] LABS: ALT (SGPT) 342 U/L (8-55); AST (SGOT) 160 U/L (5-34); Albumin 2.7 g/dL (3.4-4.8); Alkaline Phosphatase 183 U/L (40-150); Anion Gap 14 mmol/L (10-20); BUN (Urea Nitrogen) 27 mg/dL (9.8-20.1); Bilirubin, Total 1.8 mg/dL (0.2-1.2); Calc. Creatinine Clearance 46 mL/min (70-130); Calcium 7.5 mg/dL (7.8-10.44); Carbon Dioxide 24 mmol/L (23-31); Chloride 107 mmol/L (98-107); Estimated GFR-MDRD 34; Globulin 3.4 g/dL (2.4-3.5); Glucose 84 mg/dL (83-110); Potassium 3.4 mmol/L (3.5-5.1); Protein, Total 6.1 g/dL (6.0-8.3); Sodium 142 mmol/L (136-145)
[2017-11-11] MEDS: Senokot S 8.6-50 MG TAB PO SCH ×2 (08:01→20:13)
[2017-11-11] MEDS: Famotidine 20 MG TAB PO SCH (08:02)
[2017-11-11] MEDS: Clopidogrel Bisulfate 75 MG TAB PO SCH (08:02)
[2017-11-11] MEDS: Acetaminophen 500 MG TAB PO PRN (08:04)
[2017-11-11] MEDS: Polyethylene Glycol 3350 17 GM Packet PO SCH (08:04)
[2017-11-11 08:51] LABS: Band 5 % (5-11); Hypochromia SLIGHT = 6-15 cells (100X) (0-5/hpf); Lymphocytes 31 % (21-51); MDiff Complete? YES; Monocytes 14 % (0-10); Neutrophil 49 % (42-75); PLT Morphology Comment Appears Decreased; Polychromasia SLIGHT = 2-3 cells (100X) (0-2/hpf); Reactive Lymphocytes 1 % (0-10)
--- NOTE | 2017-11-11 09:28 | PRG ---
DATE OF SERVICE: 11/10/2017 SUBJECTIVE: There were no major events in the past 24 hours significant diuresis. The patient's hus band is not at the bedside. He has finally gone home to get some rest. The patient remains intubated. The nurse reports that the Cedillo catheter was pulled and came out wit h the balloon intact but there was less bleeding than when she tugged on it previously. There was no further bleeding now. OBJECTIVE: VITAL SIGNS: She remains afebrile with a T-max 98.3, pulse has been in the 90s to low 100s, blood pr essure ranging with systolics 120s to 140s. Saturating 100% on her oxygenated ventilator and urine o utput was more than 8 liters in the past 24 hours. GENERAL: On exam, she is sedated and intubated. GENITOURINARY: Cedillo catheter is draining light yellow to clear urine. PLAN: Reveal creatinine continues to go down at 1.87. White count continues to come down to 9.0 and she is on appropriate antibiotics for cultures. ASSESSMENT AND PLAN: We have 77-year-old female with a known right staghorn, admitted with urosepsis , improving and multiple cardiac issues as well. Continue culture specific antibiotics, total of 3-4 weeks given bacteremia. Continue Cedillo while she is intubated and sedated and monitor.
--- NOTE | 2017-11-11 11:41 | RAD ---
CHEST 1 VIEW: COMPARISON: 11/07/17. HISTORY: Status post CPR. Elevated temperature. FINDINGS: Redemonstrated are an endotracheal tube, nasogastric tube which extends to the diaphragm and the dist al tip is not seen, right-sided central venous catheter, and a partially visualized SHOT PEENING [employer]PERATOR shunt catheter . Stable configuration of the cardiac silhouette. The pulmonary vessels and hilum are normal. Righ t costophrenic angle is clear. Increased opacification of the left lower lobe which obscures the lef t hemidiaphragm and blunts the left costophrenic angle. Left infrahilar air bronchograms are noted. Correlate for left lower lobe pneumonia or atelectasis. There is bilateral apical pleural thickenin g. IMPRESSION: Left lower lobe opacification as detailed above. Continued surveillance is recommended. POS: VITOR
[2017-11-11] MEDS ORDERED: Potassium Chloride 40 MEQ in Premix Bag 1 BAG IVPB SCH ×2 (12:15→17:30)
--- NOTE | 2017-11-11 14:10 | PDOC.PN ---
- Subjective Encounter Start Date: 11/11/17 Encounter Start Time: 08:00 Patient is seen today, had a chest xray, with persistant LEft Lung opacity. - Objective Resuscitation Status: Resuscitation Status FULL:Full Resuscitation MAR Reviewed: Yes Vital Signs & Weight: Vital Signs (12 hours) Temp Pulse Resp BP Pulse Ox 11/11/17 12:55 98 25 H 98 11/11/17 12:00 100 11/11/17 11:00 98.2 F 11/11/17 08:00 101.1 F H 107 H 29 H 11/11/17 07:00 101.1 F H 11/11/17 06:32 105 H 146/77 H 11/11/17 06:31 105 H 26 H 100 11/11/17 06:00 17 11/11/17 04:00 99.0 F 17 Weight Admit Weight 191 lb Weight 203 lb 0.732 oz Most Recent Monitor Data Heart Rate from ECG 100 NIBP 147/84 NIBP BP-Mean 98 Respiration from ECG 28 SpO2 100 I&O: 11/10/17 11/11/17 11/12/17 06:59 06:59 06:59 Intake Total 1671 891 Output Total 8250 2546 1660 [facility] -[id number] -[id number] -[id number] Result Diagrams: 11/11/17 07:37 11/11/17 07:37 Radiology Reviewed by me: Yes Phys Exam - Physical Examination HEENT: PERRLA, moist MMs Neck: no nodes, no JVD Respiratory: no rales, wheezing present Cardiovascular: RRR, no significant murmur Gastrointestinal: soft, non-tender Musculoskeletal: no edema, pulses present Neurological: non-focal, normal sensation Psychiatric: normal affect, A&O x 3 Skin: no rash, normal turgor Dx/Plan (1) Acute hypoxemic respiratory failure Code(s): J96.01 - ACUTE RESPIRATORY FAILURE WITH HYPOXIA Status: Acute Comment: extubated, Doing fine on nasal canula. (2) Acute renal failure (ARF) Status: Acute Qualifiers: Acute renal failure type: with acute tubular necrosis Qualified Code(s): N17.0 - Acute kidney failure with tubular necrosis Comment: Improving, now diuresing and wasting potassium, replete as needed (3) Proteus mirabilis infection Code(s): B96.4 - PROTEUS (MIRABILIS) (MORGANII) CAUSING DIS CLASSD ELSWHR Status: Acute Comment: both Bcx with E coli and proteus. UCxwith E coli and Kleb or EB. CCM at present, can streamline soon to levoflox or ropcehin (4) Septic shock Code(s): A41.9 - SEPSIS, UNSPECIFIED ORGANISM; R65.21 - SEVERE SEPSIS WITH SEPTIC SHOCK Status: Resolved (5) UTI (urinary tract infection) with pyuria Code(s): N39.0 - URINARY TRACT INFECTION, SITE NOT SPECIFIED Status: Acute Comment: E. coli and K. pneu. with mult resistances, on Cefoxitin. Staghorn calculus in kidney - Plan cont current plan of care, PT/OT, social worker psychiatric, respiratory therapy, incentive spirometry, DVT proph w/lovenox * . - Discharge Day Encounter end time: 08:35 Review of Systems - Review of Systems Eyes: negative: Pain, Vision Change, Conjunctivae Inflammation, Eyelid Inflammation, Redness, Other ENT: negative: Ear Pain, Ear Discharge, Nose Pain, Nose Discharge, Nose Congestion, Mouth Pain, Mouth Swelling, Throat Pain, Throat Swelling, Other Respiratory: negative: Cough, Dry, Shortness of Breath, Hemoptysis, SOB with Excertion, Pleuritic Pain, Sputum, Wheezing Cardiovascular: negative: chest pain, palpitations, orthopnea, paroxysmal nocturnal dyspnea, edema, light headedness, other Gastrointestinal: negative: Nausea, Vomiting, Abdominal Pain, Diarrhea, Constipation, Melena, Hematochezia, Other Genitourinary: negative: Dysuria, Frequency, Incontinence, Hematuria, Retention , Other Musculoskeletal: negative: Neck Pain, Shoulder Pain, Arm Pain, Back Pain, Hand Pain, Leg Pain, Foot Pain, Other - Medications/Allergies Allergies/Adverse Reactions: Allergies Allergy/AdvReac Type Severity Reaction Status Date / Time No Known Allergies Allergy Verified 11/06/17 05:43 Medications: Current Medications Acetaminophen (Tylenol) 1,000 mg PO Q6H PRN PRN Reason: Headache/Fever or Mild Pain Last Admin: 11/11/17 08:04 Dose: 1,000 mg Albuterol/Ipratropium (Duoneb) 3 ml NEB [id number] RENA Last Admin: 11/11/17 12:55 Dose: 3 ml Aspirin (Aspirin Chewable) 81 mg PO DAILY [facility] Last Admin: 11/11/17 08:02 Dose: 81 mg Atorvastatin Calcium (Lipitor) 40 mg PO HS [facility] Last Admin: 11/10/17 21:44 Dose: 40 mg Clopidogrel Bisulfate (Plavix) 75 mg PO DAILY [facility] Last Admin: 11/11/17 08:02 Dose: 75 mg Famotidine (Pepcid) 20 mg PO DAILY [facility] Last Admin: 11/11/17 08:02 Dose: 20 mg Furosemide (Lasix) 40 mg SLOW IVP 0600 [facility] Last Admin: 11/11/17 07:00 Dose: 40 mg Amiodarone HCl 450 mg/Miscellaneous Medication 1 each/ Dextrose/Water 259 mls @ 0 mls/hr IVPB INF RENA; As Directed PRN Reason: Protocol Last Admin: 11/09/17 19:29 Dose: 259 mls Fentanyl Citrate 2,000 mcg/ (Sodium Chloride) 100 mls @ 0 mls/hr IV INF [facility]; Per Protocol PRN Reason: Protocol Stop: 12/07/17 11:01 Fentanyl Citrate (Fentanyl Bolus) 250 mls @ 0 mls/hr IVPB PRN PRN; As Directed PRN Reason: Breakthrough pain Stop: 12/07/17 11:01 Sodium Chloride (1/2 Normal Saline) 1,000 mls @ 75 mls/hr IV .[id number] [facility] Last Admin: 11/10/17 17:00 Dose: 1,000 mls Cefoxitin Sodium 1 gm/ Syringe (0.5 ml/ Sterile Water) 10.5 mls @ 126 mls/hr SLOW IVP Q8HR [facility] Last Admin: 11/11/17 07:00 Dose: 10.5 mls Potassium Chloride 40 meq/ (Device) 100 mls @ 25 mls/hr IVPB NOW [facility] Stop: 11/11/17 16:14 Last Admin: 11/11/17 12:20 Dose: 100 mls Mineral Oil/White Petrolatum (Lacri-Lube Ointment) 0 gm EA EYE PRN PRN PRN Reason: Dry Eyes Discontinue Previous Narcotic Pain Medications And Benzodiazepines 1 each FS .ONE [facility] Stop: 12/07/17 11:01 Ondansetron HCl (Zofran Odt) 4 mg PO Q6H PRN PRN Reason: Nausea/Vomiting Ondansetron HCl (Zofran) 4 mg IVP Q6H PRN PRN Reason: Nausea/Vomiting Polyethylene Glycol (Miralax) 17 gm PO DAILY [facility] Last Admin: 11/11/17 08:04 Dose: 17 gm Propofol (Diprivan) 1,000 mg IV INF PRN; Protocol PRN Reason: TO ACHIEVE CHEW SCORE 2-3 Stop: 12/07/17 11:01 Last Admin: 11/07/17 12:15 Dose: 1,000 mg Senna/Docusate Sodium (Senokot S) 1 tab PO BID [facility] Last Admin: 11/11/17 08:01 Dose: 1 tab Sodium Chloride (Flush - Normal Saline) 10 ml IVF Q12HR [facility] Last Admin: 11/11/17 09:18 Dose: 10 ml Sodium Chloride (Flush - Normal Saline) 10 ml IVF PRN PRN PRN Reason: Saline Flush Last Admin: 11/09/17 11:11 Dose: 10 ml
--- NOTE | 2017-11-11 14:55 | PRG ---
DATE OF SERVICE: 11/11/2017 NEPHROLOGY PROGRESS NOTE SUBJECTIVE: Patient was seen and examined at bedside and overnight events noted. Patient denies any shortness of breath or chest pain or palpitation. No history of nausea or vomiting or diarrhea or f ever or chills or cramps. OBJECTIVE: GENERAL: This is an elderly female in no apparent distress. VITAL SIGNS: Temperature 98.2, pulse 107, respiratory rate 29, blood pressure 154/80. HEENT: Atraumatic, normocephalic. Oral mucosa is moist. NECK: Supple. CARDIOVASCULAR: S1, S2 heard. Rate and rhythm regular. RESPIRATORY: Clear to auscultation. GASTROINTESTINAL: Abdomen is soft. MUSCULOSKELETAL: No tenderness. No edema. DERMATOLOGIC: No skin rash. NEUROLOGIC: Alert and awake and oriented x3. No focal neurologic deficits. Moving all the extremiti es. PSYCHIATRIC: Mood and affect normal. LABORATORY DATA: Potassium is 3.4, BUN is 27, creatinine is 1.4. ASSESSMENT AND PLAN: 1. Acute kidney injury on chronic kidney stage 3. Renal function is much better. Her baseline crea tinine is 1.2. Currently, creatinine is 1.4. 2. Hypokalemia, replace and recheck magnesium. 3. Hypomagnesemia. 4. Hypophosphatemia, replaced. 5. Anemia. 6. Hypocalcemia. Overall, renal function is better. Continue supportive care.
--- NOTE | 2017-11-11 16:27 | PRG ---
DATE OF SERVICE: 11/11/2017 SUBJECTIVE: Ms. Ornelas is awake. She continues to be intubated. She does not appear to be follow ing commands. She does awaken to voice. OBJECTIVE: VITAL SIGNS: Blood pressure 127/78, pulse 92, temperature afebrile. LUNGS: Clear to auscultation. CARDIAC: Regular rate and rhythm. ABDOMEN: Soft, nontender, nondistended. EXTREMITIES: No edema. PERTINENT LABORATORY DATA: Hemoglobin 10.0. Potassium 3.4, creatinine 1.48. IMPRESSION: 1. Atrial fibrillation. 2. Sepsis syndrome. 3. Septic shock. 4. Coronary artery disease. 5. Status post stent placement. RECOMMENDATIONS: CV standpoint, she appears more stable. She is off pressors. She continues IV ami odarone. She is in sinus rhythm. We would continue amiodarone until the IV bag has run out. Contin ue antibiotic therapy and vent support. I am concerned about hypoxic encephalopathy.
[2017-11-11 16:52] LABS: Magnesium 1.7 mg/dL (1.6-2.6); Phosphorus 3.1 mg/dL (2.3-4.7); Potassium 3.4 mmol/L (3.5-5.1)
[2017-11-11] MEDS: Sodium Chloride 0.45% 1,000 ML IV SCH (18:23)
[2017-11-11] MEDS: Atorvastatin Calcium 20 MG TAB PO SCH (20:12)
[2017-11-12 04:56] LABS: ALT (SGPT) 221 U/L (8-55); AST (SGOT) 79 U/L (5-34); Albumin 2.5 g/dL (3.4-4.8); Alkaline Phosphatase 145 U/L (40-150); Anion Gap 9 mmol/L (10-20); BUN (Urea Nitrogen) 27 mg/dL (9.8-20.1); Bilirubin, Total 1.5 mg/dL (0.2-1.2); Calc. Creatinine Clearance 57 mL/min (70-130); Calcium 7.7 mg/dL (7.8-10.44); Carbon Dioxide 27 mmol/L (23-31); Chloride 109 mmol/L (98-107); Estimated GFR-MDRD 44; Globulin 3.1 g/dL (2.4-3.5); Glucose 61 mg/dL (83-110); Potassium 3.7 mmol/L (3.5-5.1); Protein, Total 5.6 g/dL (6.0-8.3); Sodium 141 mmol/L (136-145)
[2017-11-12 05:12] LABS: Band 1 % (5-11); Eosinophils 3 % (0-10); Hemoglobin 9.2 g/dL (12.0-16.0); Lymphocytes 21 % (21-51); MDiff Complete? YES; Mean Corpuscular HGB CONC 32.4 g/dL (32.0-36.0); Mean Corpuscular Hemoglobin 31.6 pg (27.0-31.0); Mean Corpuscular Volume 97.5 fl (81.0-99.0); Mean Platelet Volume 8.9 fL (7.4-10.4); Monocytes 9 % (0-10); Neutrophil 66 % (42-75); PLT Morphology Comment Appears Adequate; Platelet Count 140 thou/uL (130-400); RBC Distribution Width 13.5 % (11.5-14.5); White Blood Cell (WBC) Count 12.5 thou/uL (4.8-10.8)
[2017-11-12] MEDS: cefOXitin Sodium 1 GM, Syringe 0.5 ML in Sterile Water 10 ML SLOW IVP SCH ×3 (06:04→21:36)
[2017-11-12] MEDS: Furosemide 40 MG/4 ML VIAL SLOW IVP SCH (06:05)
[2017-11-12] MEDS: Sodium Chloride 0.45% 1,000 ML IV SCH ×2 (06:08→21:35)
--- NOTE | 2017-11-12 08:26 | PRG ---
DATE OF SERVICE: 11/11/2017 SUBJECTIVE: Ms. Ornelas is awake and alert, quickly awaken when I walk in the room for oxygen stimu lator. She passed a leak test. Her minute volume was 8 liters a minute. OBJECTIVE: VITAL SIGNS: Heart rate is 96 now, blood pressure 127/70, respiratory rate was 20. LUNGS: Clear. HEART: Regular rhythm. S1 and S2 are normal. ABDOMEN: Soft and nontender. EXTREMITIES: Without clubbing, cyanosis, or edema. IMAGING: I reviewed today's chest radiograph see no new infiltrates. LABORATORY DATA: White count 10.7, hemoglobin 10.0, platelets 106,000. Sodium 142, potassium 3.4, c hloride 107, bicarbonate 24, BUN 27, creatinine 1.48. Liver enzyme elevation is improving. IMPRESSION: 1. Status post emergent intubation with a CODE 11/07/2017. 2. Hypoperfusion brain injury that appears to be improving each day. She is still dysarthric after extubation, but hopefully she will continue to have day to day improvement. Her is at the [facility]. I met with him three times today and answered all of his questions. 3. Polymicrobial sepsis from staghorn calculus and pyelonephritis. 4. Atrial fibrillation. 5. Recent coronary stenting. 6. History of torsades requiring intubation recently. 7. Deconditioning and some degree of pre-existing dementia. She appears to be improving on a daily basis. I am hopeful she will return to her baseline within a few days. She is stable post-extubation. She has been evaluated 3 times after extubation today and appears to be stable. Critical care time, 40 minutes.
[2017-11-12] MEDS: Famotidine 20 MG TAB PO SCH ×2 (09:49→21:36)
[2017-11-12] MEDS: Clopidogrel Bisulfate 75 MG TAB PO SCH (09:49)
[2017-11-12] MEDS: Polyethylene Glycol 3350 17 GM Packet PO SCH (09:49)
[2017-11-12] MEDS: Senokot S 8.6-50 MG TAB PO SCH ×2 (09:50→19:57)
--- NOTE | 2017-11-12 09:56 | PDOC.PN ---
- Subjective Encounter Start Date: 11/12/17 Encounter Start Time: 09:55 Ms. Ornelas was seen today in follow-up of severe Sepsis. She is now extubated , sitting up in the bed, and smiling. She denies having any trouble breathing, any chest pain, ect. She has no complaints. - Objective Resuscitation Status: Resuscitation Status FULL:Full Resuscitation MAR Reviewed: Yes Vital Signs & Weight: Vital Signs (12 hours) Temp Pulse Resp Pulse Ox 11/12/17 07:57 80 16 11/12/17 03:17 100 11/12/17 03:00 98.9 F 11/12/17 01:00 98.9 F 11/12/17 00:22 82 19 100 11/11/17 23:00 99 F Weight Admit Weight 191 lb Weight 180 lb 12.465 oz Most Recent Monitor Data Heart Rate from ECG 86 NIBP 124/75 NIBP BP-Mean 96 Respiration from ECG 18 SpO2 100 I&O: 11/11/17 11/12/17 11/13/17 06:59 06:59 06:59 Intake Total 891 2623 Output Total 3356 2525 Balance -2465 98 Result Diagrams: 11/12/17 04:32 11/12/17 04:32 Phys Exam - Physical Examination HEENT: PERRLA Respiratory: no wheezing, no rales, no rhonchi, clear to auscultation bilateral Cardiovascular: RRR, no significant murmur, no rub Gastrointestinal: soft, non-tender, no distention, positive bowel sounds Musculoskeletal: no edema, pulses present Dx/Plan (1) Acute renal failure (ARF) Status: Acute Qualifiers: Acute renal failure type: with acute tubular necrosis Qualified Code(s): N17.0 - Acute kidney failure with tubular necrosis Comment: Improving, now diuresing and wasting potassium, replete as needed (2) Proteus mirabilis infection Code(s): B96.4 - PROTEUS (MIRABILIS) (MORGANII) CAUSING DIS CLASSD ELSWHR Status: Acute Comment: both Bcx with E coli and proteus. UCxwith E coli and Kleb or EB. CCM at present, can streamline soon to levoflox or ropcehin (3) UTI (urinary tract infection) with pyuria Code(s): N39.0 - URINARY TRACT INFECTION, SITE NOT SPECIFIED Status: Acute Comment: E. coli and K. pneu. with mult resistances, on Cefoxitin. Staghorn calculus in kidney (4) Septic shock Code(s): A41.9 - SEPSIS, UNSPECIFIED ORGANISM; R65.21 - SEVERE SEPSIS WITH SEPTIC SHOCK Status: Resolved (5) NSTEMI (non-ST elevated myocardial infarction) Code(s): I21.4 - NON-ST ELEVATION (NSTEMI) MYOCARDIAL INFARCTION Status: Acute Comment: trop > 40 now (6) CAD (coronary artery disease) of artery bypass graft Code(s): I25.810 - ATHEROSCLEROSIS OF CABG W/O ANGINA PECTORIS Status: Chronic Qualifiers: [place] vs. transplanted heart: [place] heart Associated angina: with unstable angina Qualified Code(s): I25.700 - Atherosclerosis of coronary artery bypass graft(s), unspecified, with unstable angina pectoris (7) HTN (hypertension) Code(s): I10 - ESSENTIAL (PRIMARY) HYPERTENSION Status: Chronic Qualifiers: Hypertension type: essential hypertension Qualified Code(s): I10 - Essential (primary) hypertension Comment: Stable currently, adjust BP regimen prior to d/c (8) Physical deconditioning Code(s): R53.81 - OTHER MALAISE Status: Acute - Plan * Patient's chart was reviewed. Ms. Ornelas has a history of DM, and recent STENT to the [facility]. She was admitted originally with Nausea and vomiting on 11/06 2017. She was found to have a right Staghorn calculous, with severe sepsis. Blood and urine cultures are growing Proteus and E. Coli- both of which are sensitive to Cefoxitin. Klebsiella is also growing in the urine, and is ESBL positive, but in less than 100K CFU. Sepsis resulted in type 2 NSTEMI, shock liver, and acute renal failure. She developed AFIB with RVR and was cardioverted. She soon after went into cardiac arrest with PEA. She has survived this, and has been extubated yesterday Also of noted she has schronic systolic heart failure with an EF of 20-25%. * Will continue Continue Cefoxitin * AFIB- her heart rate is now stable, and she has been on Amiodarone- as per Cardiology * HTN- blood pressure is stable * Chronic systolic heart failure- compensated * Acute renal failure- improving * Hypoxic Brain injury- improving * Deconditioning- PT/OT * Nutrition- she passed the bedside swallow, and will place on a diet, with start with mechanical soft, and then upgrade as tolerated .
--- NOTE | 2017-11-12 10:56 | PRG ---
DATE OF SERVICE: 11/12/2017 SUBJECTIVE: The patient is extubated, alert and appropriate and clearly feels better than previous examinations. She has no complaints. She has no pain and admits that prior to this hospitalization, she was voiding without difficulty and did not have concern for retention, but did have incontinence into her Depends. OBJECTIVE: She remained afebrile. Her vitals have been stable. She has had good urine output. She overall looks very well and her urine is draining yellow to clear in the davalos. LABORATORY VALUES: White count which is stabilized at 12.5. Chemistries reveal a creatinine of 1.19, so getting closer to her baseline. As previously reported her urine grew E. coli, Proteus and Klebsiella and she is on appropriate antibiotics. ASSESSMENT: We have a 77-year-old female admitted with urosepsis with severe cardiac disease who had multiorgan failure, but now extubated and significantly improving. She still has known right staghorn. When her I's and O's are no longer needed, I'd ask to remove the Davalos catheter and allow her to void on her own. She can follow up with me as an outpatient to further discuss the staghorn calculus. Although based on her cardiac history, I am not sure she could tolerate a definitive procedure for this. ALIREZA
--- NOTE | 2017-11-12 11:51 | PRG ---
Patient Name: VICKY LOPEZ Date of service: 11/12/2017 Subjective: Patient was seen and examined at bedside and overnight events noted. Patient denies any shortness of breath or chest pain or palpitation. No history of nausea or vomiting or diarrhea or fever or chills or cramps. Objective: General: This is an elderly female in no apparent distress. Vital signs: Temperature 98.4, pulse 82, respirations 18, blood pressure 129/66. HEENT: Atraumatic, normocephalic. Oral mucosa is moist. Neck: Supple. Cardiovascular: S1 S2 heard. Rate and rhythm regular. Respiratory: Clear to auscultation. Gastrointestinal: Abdomen is soft. Musculoskeletal: No tenderness. No edema. Dermatologic: No skin rash. Neurologic: Alert and awake and oriented X3. No focal neurologic deficits. Moving all the extremit ies. Psychiatric: Mood and affect normal. LABORATORY DATA: Potassium is 3.7, BUN 27, creatinine is 1.1. ASSESSMENT AND PLAN: 1. Acute kidney injury/chronic kidney disease. Renal function is much better. I will sign off. Pl ease call back with questions. 2. Hypokalemia, better. We will give another dose of potassium today given on Lasix. 3. Hypomagnesemia and hypophosphatemia, replaced. 4. Anemia. Overall, renal function is better. Avoid nephrotoxins. I will sign off. Please call back with any questions.
[2017-11-12] MEDS ORDERED: Potassium Chloride 40 MEQ in Premix Bag 1 BAG IVPB SCH (15:45)
[2017-11-12] MEDS: Acetaminophen 500 MG TAB PO PRN (21:36)
[2017-11-12] MEDS: Atorvastatin Calcium 20 MG TAB PO SCH (21:36)
[2017-11-12] MEDS: Amiodarone 200 MG TAB PO SCH (21:37)
--- NOTE | 2017-11-12 22:27 | PRG ---
DATE OF SERVICE: 11/12/2017 SUBJECTIVE: Juan Daniel Ornelas's speech is slowly improving. OBJECTIVE: VITAL SIGNS: Heart rates in the 80s, respiratory rate is 24, oximetry is 99, and blood pressure 128/ 87. LUNGS: Clear. HEART: Regular rhythm. ABDOMEN: Soft. IMPRESSION: 1. Sepsis, status post code with dysarthria, slowly improving each day. 2. Status post mechanical ventilation. 3. Staghorn calculus with polymicrobial urinary tract infection and bacteremia. She is stable and m ove out of the critical care unit.
[2017-11-13 04:54] LABS: #Eosinphils 0.5 thou/uL (0.0-0.7); Mean Platelet Volume 8.9 fL (7.4-10.4); RBC Distribution Width 13.7 % (11.5-14.5); Red Blood Cell (RBC) Count 2.94 mill/uL (4.20-5.40)
[2017-11-13 05:00] LABS: #Basophils 0.1 thou/uL (0.0-0.2); #Lymphocytes 2.3 thou/uL (1.20-3.40); #Monocytes 1.4 thou/uL (0.11-0.59); #Neutrophils 5.7 thou/uL (1.40-6.50); %Basophils 0.5 % (0.0-1.0); %Eosinophils 4.8 % (0.0-10.0); %Lymphocytes 23.4 % (21.0-51.0); %Neutrophils 57.3 % (42.0-75.0); Hemoglobin 9.9 g/dL (12.0-16.0); Mean Corpuscular HGB CONC 34.8 g/dL (32.0-36.0); Mean Corpuscular Hemoglobin 33.8 pg (27.0-31.0); Mean Corpuscular Volume 97.2 fl (81.0-99.0); Platelet Count 185 thou/uL (130-400); White Blood Cell (WBC) Count 9.9 thou/uL (4.8-10.8)
[2017-11-13 05:03] LABS: ALT (SGPT) 152 U/L (8-55); AST (SGOT) 49 U/L (5-34); Albumin 2.7 g/dL (3.4-4.8); Alkaline Phosphatase 144 U/L (40-150); Anion Gap 11 mmol/L (10-20); BUN (Urea Nitrogen) 25 mg/dL (9.8-20.1); Bilirubin, Total 1.1 mg/dL (0.2-1.2); Calc. Creatinine Clearance 54 mL/min (70-130); Calcium 7.9 mg/dL (7.8-10.44); Carbon Dioxide 24 mmol/L (23-31); Chloride 109 mmol/L (98-107); Estimated GFR-MDRD 48; Globulin 3.2 g/dL (2.4-3.5); Glucose 80 mg/dL (83-110); Potassium 3.5 mmol/L (3.5-5.1); Protein, Total 5.9 g/dL (6.0-8.3); Sodium 140 mmol/L (136-145)
[2017-11-13] MEDS: Furosemide 40 MG/4 ML VIAL SLOW IVP SCH (05:53)
[2017-11-13] MEDS: cefOXitin Sodium 1 GM, Syringe 0.5 ML in Sterile Water 10 ML SLOW IVP SCH ×3 (05:53→21:44)
[2017-11-13] MEDS: Senokot S 8.6-50 MG TAB PO SCH ×2 (08:52→21:47)
[2017-11-13] MEDS: Clopidogrel Bisulfate 75 MG TAB PO SCH (08:52)
[2017-11-13] MEDS: Polyethylene Glycol 3350 17 GM Packet PO SCH (08:53)
[2017-11-13] MEDS: Amiodarone 200 MG TAB PO SCH ×2 (08:56→21:45)
[2017-11-13] MEDS: Famotidine 20 MG TAB PO SCH ×2 (08:56→21:47)
--- NOTE | 2017-11-13 10:01 | PDOC.PN ---
- Subjective Encounter Start Date: 11/13/17 Encounter Start Time: 09:59 Ms. Ornelas was seen in follow-up of severe sepsis, and UTI. She says she feels much better. She admits to a little chest soreness from the CPR, but otherwise ok. Her notes that she has been eating more. - Objective Resuscitation Status: Resuscitation Status FULL:Full Resuscitation MAR Reviewed: Yes Vital Signs & Weight: Vital Signs (12 hours) Temp Pulse Resp Pulse Ox 11/13/17 07:24 99 11/13/17 07:14 87 19 99 11/13/17 04:00 98.7 F 11/13/17 00:41 87 22 H 100 11/13/17 00:00 98.7 F Weight Admit Weight 191 lb Weight 180 lb 8.937 oz Most Recent Monitor Data Heart Rate from ECG 83 NIBP 119/62 NIBP BP-Mean 84 Respiration from ECG 16 SpO2 99 I&O: 11/12/17 11/13/17 11/14/17 06:59 06:59 06:59 Intake Total 2623 2249 Output Total 2525 2865 Balance 98 -616 Result Diagrams: 11/13/17 03:30 11/13/17 04:41 Phys Exam - Physical Examination HEENT: PERRLA Respiratory: no rales, no rhonchi, wheezing present + occasional wheeze Cardiovascular: RRR, no significant murmur, no rub Gastrointestinal: soft, non-tender, no distention, positive bowel sounds Musculoskeletal: edema present 1+ edema in the lower extremities, and bulous area on the right heel Dx/Plan (1) Acute renal failure (ARF) Status: Acute Qualifiers: Acute renal failure type: with acute tubular necrosis Qualified Code(s): N17.0 - Acute kidney failure with tubular necrosis Comment: Improving, now diuresing and wasting potassium, replete as needed (2) Proteus mirabilis infection Code(s): B96.4 - PROTEUS (MIRABILIS) (MORGANII) CAUSING DIS CLASSD ELSWHR Status: Acute Comment: both Bcx with E coli and proteus. UCxwith E coli and Kleb or EB. CCM at present, can streamline soon to levoflox or ropcehin (3) UTI (urinary tract infection) with pyuria Code(s): N39.0 - URINARY TRACT INFECTION, SITE NOT SPECIFIED Status: Acute Comment: E. coli and K. pneu. with mult resistances, on Cefoxitin. Staghorn calculus in kidney (4) Septic shock Code(s): A41.9 - SEPSIS, UNSPECIFIED ORGANISM; R65.21 - SEVERE SEPSIS WITH SEPTIC SHOCK Status: Resolved (5) NSTEMI (non-ST elevated myocardial infarction) Code(s): I21.4 - NON-ST ELEVATION (NSTEMI) MYOCARDIAL INFARCTION Status: Acute Comment: trop > 40 now (6) CAD (coronary artery disease) of artery bypass graft Code(s): I25.810 - ATHEROSCLEROSIS OF CABG W/O ANGINA PECTORIS Status: Chronic Qualifiers: [place] vs. transplanted heart: [place] heart Associated angina: with unstable angina Qualified Code(s): I25.700 - Atherosclerosis of coronary artery bypass graft(s), unspecified, with unstable angina pectoris (7) HTN (hypertension) Code(s): I10 - ESSENTIAL (PRIMARY) HYPERTENSION Status: Chronic Qualifiers: Hypertension type: essential hypertension Qualified Code(s): I10 - Essential (primary) hypertension Comment: Stable currently, adjust BP regimen prior to d/c (8) Physical deconditioning Code(s): R53.81 - OTHER MALAISE Status: Acute (9) Chronic systolic heart failure Code(s): I50.22 - CHRONIC SYSTOLIC (CONGESTIVE) HEART FAILURE Status: Acute - Plan * UTI with sepsis- much improved Continue on Cefoxitin * AFIB- her heart rate has been stable, and she has been transitioned to oral Amiodarone * Chronic systolic heart failure- compensated. * Acute renal failure- continued improvement * Deconditioning- continue PT/OT * Possible transfer to Telemetry today
--- NOTE | 2017-11-13 10:15 | PRG ---
DATE OF SERVICE: 11/13/2017 Ms. Ornelas looks even better today. Speech is more fluent. She answers questions quickly, althoug h she is still slightly dysarthric. She is better than yesterday. PHYSICAL EXAMINATION: VITAL SIGNS: Heart rate 87, respiratory rate is 19, oximetry is 99 on room air. Blood pressure 119/ 62. LUNGS: Clear. CARDIOVASCULAR: Regular rhythm. ABDOMEN: Soft. IMPRESSION: 1. Urinary tract sepsis combined with a staghorn calculus. 2. Status post emergent intubation with a code. 3. Dysarthria secondary to her arrest, most likely, this is improving. 4. History of torsades last admission. 5. History of a non-Q-wave myocardial infarction with coronary stenting in her LAD recently. 6. History of hypertension. 7. History of a lipid disorder. 8. History of a right hemiparesis associated with intracranial hemorrhage in the past and a cranioto my for a hematoma. 9. Atrial fibrillation this admission, cardioverted in the ICU. 10. Neurogenic bladder history. 11. History of depression and deconditioning associated with her stroke and her hemiparesis. 12. History of gastrointestinal bleed in the past. 13. History of PEG in the past. PLAN: Continue supportive care. She is stable to transfer out of the Critical Care Unit in my opini on. The biggest question in my mind is whether or not she will have recurrence of her infection with the calculus that she has in place.
--- NOTE | 2017-11-13 10:43 | PRG ---
DATE OF SERVICE: 11/13/2017 The patient is doing well and her is feeding her at the bedside. She was safe to be transfer red to the floor, but there has not been a bed yet. OBJECTIVE: VITAL SIGNS: Her vitals have been stable. She is oxygenating well and her urine output has been excellent. There is light yellow urine drainin g through a Cedillo. LABORATORY: All of her laboratory values are stable or trending in improvement. ASSESSMENT: We have a 77-year-old female admitted with urosepsis and a known right staghorn who also had multiple cardiac issues and multiorgan failure who is improving significantly and still has an i ndwelling Cedillo. I would ask that once her diuresis is complete that this be removed and she is allo wed to void on her own. We reviewed this and ensuring she does not leave the hospital with a Cedillo c atheter as well as follow up in the office to review her stone disease.
[2017-11-13] MEDS: Sodium Chloride 0.45% 1,000 ML IV SCH (12:48)
--- NOTE | 2017-11-13 15:00 | PRG ---
DATE OF SERVICE: 11/13/2017 SUBJECTIVE: Ms. Ornelas has been extubated. She appears confused. She is following commands. OBJECTIVE: VITAL SIGNS: Blood pressure 120/60, pulse 90, temperature afebrile. LUNGS: Clear to auscultation. CARDIAC: Regular rate and rhythm. ABDOMEN: Soft, nontender, nondistended. EXTREMITIES: No edema. SKIN: No significant changes. PERTINENT LABORATORY DATA: Hemoglobin 9.9, potassium 3.5, creatinine 1.1. IMPRESSION: 1. Sepsis. 2. Coronary artery disease. 3. Status post stent placement. 4. Previous history of torsades. RECOMMENDATIONS: 1. Continue amiodarone at 400 mg IV b.i.d. for 5 days, then decrease to 400 mg p.o. q.a.m. 2. Continue antibiotic therapy. Okay from my standpoint transfer to [facility]. The patient did have recent hypotension and septic shock. There were no significant rhythm to sugges t torsades had occurred. Continue to monitor closely.
[2017-11-13] MEDS: Atorvastatin Calcium 20 MG TAB PO SCH (21:45)
[2017-11-14] MEDS: Sodium Chloride 0.45% 1,000 ML IV SCH ×2 (02:57→15:01)
[2017-11-14] MEDS: Furosemide 40 MG/4 ML VIAL SLOW IVP SCH (05:07)
[2017-11-14] MEDS: cefOXitin Sodium 1 GM, Syringe 0.5 ML in Sterile Water 10 ML SLOW IVP SCH ×3 (06:15→21:27)
[2017-11-14] MEDS: Polyethylene Glycol 3350 17 GM Packet PO SCH (09:00)
[2017-11-14] MEDS: Senokot S 8.6-50 MG TAB PO SCH ×2 (09:01→21:28)
[2017-11-14] MEDS: Clopidogrel Bisulfate 75 MG TAB PO SCH (09:01)
[2017-11-14] MEDS: Famotidine 20 MG TAB PO SCH ×2 (09:01→21:28)
[2017-11-14] MEDS: Acetaminophen 500 MG TAB PO PRN ×2 (09:01→21:38)
[2017-11-14] MEDS: Amiodarone 200 MG TAB PO SCH ×2 (09:01→21:28)
[2017-11-14] MEDS ORDERED: Diabetic Tussin 200 MG/10 ML UDCUP PO PRN (12:54)
--- NOTE | 2017-11-14 14:32 | PRG ---
DATE OF SERVICE: 11/14/2017 SUBJECTIVE: She was transferred from the ICU. She is doing better. OBJECTIVE: VITAL SIGNS: Blood pressure is 116/58, sats 93 on room air, respiration 16, temperature 98, pulse 84 . Denies difficulty breathing. CHEST: Clear without wheezing. CARDIAC: Normal S1, S2. ABDOMEN: Soft, no masses. IMPRESSION: 1. Urosepsis, status post stent. 2. History of previous cardiac arrhythmias. 3. Advanced age. 4. Status respiratory failure. She appears to be doing better. PLAN: Continue PT and supportive care. Will follow.
--- NOTE | 2017-11-14 15:11 | PDOC.PN ---
- Subjective Encounter Start Date: 11/14/17 Encounter Start Time: 08:00 Pt seen for followup re: UTI. Denies chest pain or shortness of breath. Feels better. - Objective Resuscitation Status: Resuscitation Status FULL:Full Resuscitation MAR Reviewed: Yes Vital Signs & Weight: Vital Signs (12 hours) Temp Pulse Resp BP Pulse Ox 11/14/17 11:40 97.7 F 83 19 119/57 L 93 L 11/14/17 08:21 84 16 11/14/17 07:25 98.6 F 84 16 116/58 L 93 L 11/14/17 04:00 98.5 F 94 18 131/58 L 92 L Weight Admit Weight 191 lb Weight 179 lb 12.8 oz Most Recent Monitor Data Heart Rate from ECG 87 NIBP 133/63 NIBP BP-Mean 81 Respiration from ECG 20 SpO2 95 I&O: 11/13/17 11/14/17 11/15/17 06:59 06:59 06:59 Intake Total 2249 2638 Output Total 2865 2250 Balance -616 388 Result Diagrams: 11/13/17 03:30 11/13/17 04:41 EKG Reviewed by me: Yes (Tele: NSR) Phys Exam - Physical Examination Obese HEENT: moist MMs Neck: supple Respiratory: clear to auscultation bilateral Cardiovascular: RRR Gastrointestinal: soft Musculoskeletal: edema present Neurological: moves all 4 limbs Psychiatric: normal affect Deviation from normal: Oriented to person and place, not to time Skin: no rash Dx/Plan (1) UTI (urinary tract infection) Status: Acute Comment: continue antibiotics as below (2) Bacteremia Code(s): R78.81 - BACTEREMIA Status: Acute Comment: continue antibiotics (3) Dyslipidemia Code(s): E78.5 - HYPERLIPIDEMIA, UNSPECIFIED Status: Chronic Comment: continue statin (4) HTN (hypertension) Code(s): I10 - ESSENTIAL (PRIMARY) HYPERTENSION Status: Chronic Qualifiers: Hypertension type: essential hypertension Qualified Code(s): I10 - Essential (primary) hypertension Comment: Stable currently, adjust BP regimen prior to d/c (5) Staghorn calculus Code(s): N20.0 - CALCULUS OF KIDNEY Status: Chronic Comment: to followup with urology as outpatient (6) Septic shock Code(s): A41.9 - SEPSIS, UNSPECIFIED ORGANISM; R65.21 - SEVERE SEPSIS WITH SEPTIC SHOCK Status: Resolved - Plan out of bed/ambulate * . Consult ID re: choice and duration of antibiotics Review of Systems - Review of Systems Constitutional: negative: fever, chills, sweats, weakness, malaise Respiratory: Cough, SOB with Excertion, Sputum. negative: Dry, Shortness of Breath, Hemoptysis, Pleuritic Pain, Wheezing Cardiovascular: negative: chest pain, palpitations, orthopnea, paroxysmal nocturnal dyspnea, edema, light headedness - Medications/Allergies Allergies/Adverse Reactions: Allergies Allergy/AdvReac Type Severity Reaction Status Date / Time No Known Allergies Allergy Verified 11/06/17 05:43 Medications: Current Medications Acetaminophen (Tylenol) 1,000 mg PO Q6H PRN PRN Reason: Headache/Fever or Mild Pain Last Admin: 11/14/17 09:01 Dose: 1,000 mg Albuterol/Ipratropium (Duoneb) 3 ml NEB [id number] [facility] Last Admin: 11/14/17 13:57 Dose: Not Given Amiodarone HCl (Cordarone) 400 mg PO BID [facility] Last Admin: 11/14/17 09:01 Dose: 400 mg Aspirin (Aspirin Chewable) 81 mg PO DAILY [facility] Last Admin: 11/14/17 09:01 Dose: 81 mg Atorvastatin Calcium (Lipitor) 40 mg PO HS [facility] Last Admin: 11/13/17 21:45 Dose: 40 mg Clopidogrel Bisulfate (Plavix) 75 mg PO DAILY [facility] Last Admin: 11/14/17 09:01 Dose: 75 mg Famotidine (Pepcid) 20 mg PO BID [facility] Last Admin: 11/14/17 09:01 Dose: 20 mg Furosemide (Lasix) 40 mg SLOW IVP 0600 [facility] Last Admin: 11/14/17 05:07 Dose: 40 mg Guaifenesin (Robitussin Sf) 300 mg PO TIDPRN PRN PRN Reason: Cough Last Admin: 11/14/17 15:05 Dose: 300 mg Sodium Chloride (1/2 Normal Saline) 1,000 mls @ 75 mls/hr IV .[id number] [facility] Last Admin: 11/14/17 15:01 Dose: 1,000 mls Cefoxitin Sodium 1 gm/ Syringe (0.5 ml/ Sterile Water) 10.5 mls @ 126 mls/hr SLOW IVP Q8HR [facility] Last Admin: 11/14/17 14:58 Dose: 10.5 mls Mineral Oil/White Petrolatum (Lacri-Lube Ointment) 0 gm EA EYE PRN PRN PRN Reason: Dry Eyes Ondansetron HCl (Zofran Odt) 4 mg PO Q6H PRN PRN Reason: Nausea/Vomiting Ondansetron HCl (Zofran) 4 mg IVP Q6H PRN PRN Reason: Nausea/Vomiting Polyethylene Glycol (Miralax) 17 gm PO DAILY [facility] Last Admin: 11/14/17 09:00 Dose: Not Given Senna/Docusate Sodium (Senokot S) 1 tab PO BID [facility] Last Admin: 11/14/17 09:01 Dose: Not Given Sodium Chloride (Flush - Normal Saline) 10 ml IVF Q12HR [facility] Last Admin: 11/14/17 09:02 Dose: Not Given Sodium Chloride (Flush - Normal Saline) 10 ml IVF PRN PRN PRN Reason: Saline Flush Last Admin: 11/09/17 11:11 Dose: 10 ml
--- NOTE | 2017-11-14 16:07 | PDOC.CTH ---
<Radha Bourgeois - Last Filed: 11/14/17 16:05> Cardiology Progress Note - Subjective The pt seen and examined. No overnight events. No cardiac complaints. She was in bed resting. Her stated she has not complained any cardiac symptoms today. - Objective Vital Signs Temp Pulse Resp BP Pulse Ox 11/14/17 11:40 97.7 F 83 19 119/57 L 93 L 11/14/17 08:21 84 16 11/14/17 07:25 98.6 F 84 16 116/58 L 93 L Admit Weight 191 lb Weight 179 lb 12.8 oz 11/13/17 11/14/17 11/15/17 06:59 06:59 06:59 Intake Total 2249 2638 Output Total 2865 2250 Balance -616 388 - Physical Examination Neck: no JVD present Lungs: CTA Heart: RRR Abdomen: soft Extremities: other: (No edema) - Telemetry Telemetry Rhythm: SR IVCD 90s - Labs Result Diagrams: 11/13/17 03:30 11/13/17 04:41 Troponin/CKMB CK-MB (CK-2) 40.3 ng/mL (0-6.6) H* 11/06/17 02:59 Troponin I 40.955 ng/mL (< 0.028) H* 11/07/17 06:15 - Assessment/Plan 1. Hx of Torsades - On Amiodarone 400mg PO BID for 5 days from 2099, 11/12/17, then change to daily; 2. AFib with RVR and s/p Cardioversion on 11/06/17 - Remains in SR; on On Amiodarone 400mg PO BID for 5 days from 2099, 11/12/17, then change to daily; On ASA 81mg 3. Urosepsis - on Antibiotics; managed by PCP and Urologist; possible percutaneous nephrostomy tube as outpt? 4. CAD with s/p stent placement x1 in LAD on 10/17/17 - on ASA and Plavix. Start Coreg 3.125mg 1/2 tab BID 4. HTN - stable MAR reviewed Review of Systems - Review of Systems Constitutional: reports: see HPI EENTM: reports: see HPI Respiratory: reports: see HPI Cardiac (ROS): reports: see HPI ABD/GI: reports: see HPI : reports: see HPI Musculoskeletal: reports: see HPI <Alphonso Sullivan Praful - Last Filed: 11/15/17 00:10> Cardiology Progress Note - Objective Vital Signs Temp Pulse Resp BP Pulse Ox 11/14/17 22:11 78 16 96 11/14/17 21:27 97.1 F L 84 16 11/14/17 19:24 97.1 F L 84 16 119/57 L 93 L 11/14/17 18:40 86 16 96 11/14/17 15:40 94 L 11/14/17 15:15 97.9 F 84 16 127/60 94 L Admit Weight 191 lb Weight 179 lb 12.8 oz 11/13/17 11/14/17 11/15/17 06:59 06:59 06:59 Intake Total 2249 2638 1576 Output Total 2865 2250 2300 Balance -616 388 -724 - Labs Result Diagrams: 11/13/17 03:30 11/13/17 04:41 Troponin/CKMB CK-MB (CK-2) 40.3 ng/mL (0-6.6) H* 11/06/17 02:59 Troponin I 40.955 ng/mL (< 0.028) H* 11/07/17 06:15 - Assessment/Plan Pt. seen and eval. by me. I agree with the A/P by the MAIL AGENT. We discussed the pt. and plan.
[2017-11-14] MEDS: Carvedilol 3.125 MG TAB PO SCH (17:43)
[2017-11-14] MEDS ORDERED: Sodium Chloride 0.65% Nasal 44 ML BOT EA NARE PRN (18:21)
[2017-11-14] MEDS: Atorvastatin Calcium 20 MG TAB PO SCH (21:28)
[2017-11-15] MEDS: cefOXitin Sodium 1 GM, Syringe 0.5 ML in Sterile Water 10 ML SLOW IVP SCH ×2 (06:17→14:07)
[2017-11-15] MEDS: Furosemide 40 MG/4 ML VIAL SLOW IVP SCH (06:17)
[2017-11-15] MEDS: Sodium Chloride 0.45% 1,000 ML IV SCH ×2 (06:18→16:56)
[2017-11-15] MEDS: Clopidogrel Bisulfate 75 MG TAB PO SCH (08:20)
[2017-11-15] MEDS: Famotidine 20 MG TAB PO SCH ×3 (08:20→21:09)
[2017-11-15] MEDS: Senokot S 8.6-50 MG TAB PO SCH ×2 (08:20→21:11)
[2017-11-15] MEDS: Carvedilol 3.125 MG TAB PO SCH ×2 (08:21→16:52)
[2017-11-15] MEDS: Amiodarone 200 MG TAB PO SCH ×2 (08:22→21:10)
[2017-11-15] MEDS: Polyethylene Glycol 3350 17 GM Packet PO SCH (08:23)
[2017-11-15] MEDS: Acetaminophen 500 MG TAB PO PRN ×3 (08:29→23:15)
--- NOTE | 2017-11-15 12:57 | PDOC.PN ---
- Subjective Encounter Start Date: 11/15/17 Encounter Start Time: 08:20 Pt seen for followup re: UTI, Reports pressure sensation both ears. Denies chest pain, shortness of breath, fevers or chills. - Objective Resuscitation Status: Resuscitation Status FULL:Full Resuscitation MAR Reviewed: Yes Vital Signs & Weight: Vital Signs (12 hours) Temp Pulse Resp BP Pulse Ox 11/15/17 12:00 98.0 F 75 16 107/62 95 11/15/17 08:39 80 16 11/15/17 08:15 98.0 F 75 18 127/61 95 11/15/17 04:00 97.6 F 86 22 H 132/60 94 L Weight Admit Weight 191 lb Weight 178 lb 9.6 oz Most Recent Monitor Data Heart Rate from ECG 87 NIBP 133/63 NIBP BP-Mean 81 Respiration from ECG 20 SpO2 95 I&O: 11/14/17 11/15/17 11/16/17 06:59 06:59 06:59 Intake Total 2638 2676 Output Total 2250 2800 Balance 388 -124 Result Diagrams: 11/18/17 10:49 11/18/17 10:49 EKG Reviewed by me: Yes (Tele: NSR) Phys Exam - Physical Examination Constitutional: NAD HEENT: moist MMs, oral pharynx no lesions Dm cerumen Neck: supple Respiratory: clear to auscultation bilateral Cardiovascular: RRR Gastrointestinal: soft Neurological: moves all 4 limbs Psychiatric: normal affect Skin: no rash Dx/Plan (1) UTI (urinary tract infection) Status: Acute Comment: continue antibiotics (2) Bacteremia Code(s): R78.81 - BACTEREMIA Status: Acute Comment: continue antibiotics (3) Dyslipidemia Code(s): E78.5 - HYPERLIPIDEMIA, UNSPECIFIED Status: Chronic Comment: on statin (4) Excessive cerumen in both ear canals Code(s): H61.23 - IMPACTED CERUMEN, BILATERAL Status: Acute Comment: on carbamide peroxide ear drops (5) HTN (hypertension) Code(s): I10 - ESSENTIAL (PRIMARY) HYPERTENSION Status: Chronic Qualifiers: Hypertension type: essential hypertension Qualified Code(s): I10 - Essential (primary) hypertension Comment: stable (6) Staghorn calculus Code(s): N20.0 - CALCULUS OF KIDNEY Status: Chronic Comment: followup with urology as outpatient (7) Septic shock Code(s): A41.9 - SEPSIS, UNSPECIFIED ORGANISM; R65.21 - SEVERE SEPSIS WITH SEPTIC SHOCK Status: Resolved - Plan * . Review of Systems - Review of Systems ENT: Other (Feeling of ear fullness) Respiratory: negative: Cough, Dry, Shortness of Breath, Hemoptysis, SOB with Excertion, Pleuritic Pain, Sputum, Wheezing Cardiovascular: negative: chest pain, palpitations, orthopnea, paroxysmal nocturnal dyspnea, edema, light headedness - Medications/Allergies Allergies/Adverse Reactions: Allergies Allergy/AdvReac Type Severity Reaction Status Date / Time No Known Allergies Allergy Verified 11/06/17 05:43 Medications: Current Medications Acetaminophen (Tylenol) 1,000 mg PO Q6H PRN PRN Reason: Headache/Fever or Mild Pain Last Admin: 11/15/17 08:29 Dose: 1,000 mg Albuterol/Ipratropium (Duoneb) 3 ml NEB [id number] [facility] Last Admin: 11/15/17 08:39 Dose: 3 ml Amiodarone HCl (Cordarone) 400 mg PO BID [facility] Last Admin: 11/15/17 08:22 Dose: 400 mg Aspirin (Aspirin Chewable) 81 mg PO DAILY [facility] Last Admin: 11/15/17 08:23 Dose: 81 mg Atorvastatin Calcium (Lipitor) 40 mg PO HS [facility] Last Admin: 11/14/17 21:28 Dose: 40 mg Carbamide Perox/Anhydrous Glycerin (Debrox 6.5% Otic) 5 drop EA EAR BID [facility] Carvedilol (Coreg) 1.5625 mg PO BID-[facility] Last Admin: 11/15/17 08:21 Dose: 1.5625 mg Clopidogrel Bisulfate (Plavix) 75 mg PO DAILY [facility] Last Admin: 11/15/17 08:20 Dose: 75 mg Famotidine (Pepcid) 20 mg PO BID [facility] Last Admin: 11/15/17 08:20 Dose: 20 mg Furosemide (Lasix) 40 mg SLOW IVP 0600 [facility] Last Admin: 11/15/17 06:17 Dose: 40 mg Guaifenesin (Robitussin Sf) 300 mg PO TIDPRN PRN PRN Reason: Cough Last Admin: 11/14/17 15:05 Dose: 300 mg Sodium Chloride (1/2 Normal Saline) 1,000 mls @ 75 mls/hr IV .[id number] [facility] Last Admin: 11/15/17 06:18 Dose: 1,000 mls Cefoxitin Sodium 1 gm/ Syringe (0.5 ml/ Sterile Water) 10.5 mls @ 126 mls/hr SLOW IVP Q8HR [facility] Last Admin: 11/15/17 06:17 Dose: 10.5 mls Mineral Oil/White Petrolatum (Lacri-Lube Ointment) 0 gm EA EYE PRN PRN PRN Reason: Dry Eyes Ondansetron HCl (Zofran Odt) 4 mg PO Q6H PRN PRN Reason: Nausea/Vomiting Ondansetron HCl (Zofran) 4 mg IVP Q6H PRN PRN Reason: Nausea/Vomiting Polyethylene Glycol (Miralax) 17 gm PO DAILY [facility] Last Admin: 11/15/17 08:23 Dose: 17 gm Senna/Docusate Sodium (Senokot S) 1 tab PO BID [facility] Last Admin: 11/15/17 08:20 Dose: Not Given Sodium Chloride (Flush - Normal Saline) 10 ml IVF Q12HR [facility] Last Admin: 11/15/17 08:40 Dose: Not Given Sodium Chloride (Flush - Normal Saline) 10 ml IVF PRN PRN PRN Reason: Saline Flush Last Admin: 11/09/17 11:11 Dose: 10 ml Sodium Chloride ([place] Nasal [place] 0.65%) 0 ml EA NARE TID PRN PRN Reason: Nasal Congestion
--- NOTE | 2017-11-15 14:11 | PRG ---
DATE OF SERVICE: 11/15/2017 This morning, she is better. She complains of stuffiness in the ears and chest pain, but no shortnes s of breath. OBJECTIVE: VITAL SIGNS: Temperature is 98, pulse 80, blood pressure is 127/60, sats 90% on room air. CHEST: Minimal crackles. CARDIAC: Normal S1, S2. No gallops. ABDOMEN: Soft, no masses. IMPRESSION: 1. Status post respiratory failure. 2. Chest pain. 3. Coronary artery disease. PLAN: Continue PT, nebulizer treatments, supportive care. We will follow.
--- NOTE | 2017-11-15 18:11 | PDOC.CTH ---
<Radha Bourgeois - Last Filed: 11/15/17 18:11> Cardiology Progress Note - Subjective The pt seen and examined. No overnight events. No cardiac complaints. - Objective Vital Signs Temp Pulse Resp BP Pulse Ox 11/15/17 16:50 98.0 F 84 16 112/55 L 94 L 11/15/17 15:53 74 16 11/15/17 12:00 98.0 F 75 16 107/62 95 11/15/17 08:39 80 16 11/15/17 08:15 98.0 F 75 18 127/61 95 Admit Weight 191 lb Weight 178 lb 9.6 oz 11/14/17 11/15/17 11/16/17 06:59 06:59 06:59 Intake Total 2638 2676 Output Total 2250 2800 Balance 388 -124 - Physical Examination General/Neuro: alert & oriented x3 Neck: no JVD present Lungs: CTA Heart: RRR Abdomen: soft Extremities: other: (no edema) - Telemetry Telemetry Rhythm: SR 70s - Labs Result Diagrams: 11/13/17 03:30 11/13/17 04:41 Troponin/CKMB CK-MB (CK-2) 40.3 ng/mL (0-6.6) H* 11/06/17 02:59 Troponin I 40.955 ng/mL (< 0.028) H* 11/07/17 06:15 - Assessment/Plan 1. Hx of Torsades - On Amiodarone 400mg PO BID for 5 days from 2099 on 11/12/17 , then change to daily; notified to pharmacy today. 2. AFib with RVR and s/p Cardioversion on 11/06/17 - Remains in SR; on On Amiodarone 400mg PO BID for 5 days from 2099, 11/12/17, then change to daily; On ASA 81mg 3. Urosepsis - on Antibiotics; managed by PCP and Urologist; possible percutaneous nephrostomy tube as outpt? 4. CAD with s/p stent placement x1 in LAD on 10/17/17 - on ASA and Plavix. Start Coreg 3.125mg 1/2 tab BID 4. HTN - stable MAR reviewed Review of Systems - Review of Systems Constitutional: reports: no symptoms reported EENTM: reports: no symptoms reported Respiratory: reports: no symptoms reported Cardiac (ROS): reports: no symptoms reported ABD/GI: reports: no symptoms reported : reports: no symptoms reported <Alphonso Sullivan - Last Filed: 11/15/17 19:24> Cardiology Progress Note - Objective Vital Signs Temp Pulse Resp BP Pulse Ox 11/15/17 16:50 98.0 F 84 16 112/55 L 94 L 11/15/17 15:53 74 16 11/15/17 12:00 98.0 F 75 16 107/62 95 11/15/17 08:39 80 16 11/15/17 08:15 98.0 F 75 18 127/61 95 Admit Weight 191 lb Weight 178 lb 9.6 oz 11/14/17 11/15/17 11/16/17 06:59 06:59 06:59 Intake Total 2638 2676 Output Total 2250 2800 Balance 388 -124 - Labs Result Diagrams: 11/13/17 03:30 11/13/17 04:41 Troponin/CKMB CK-MB (CK-2) 40.3 ng/mL (0-6.6) H* 11/06/17 02:59 Troponin I 40.955 ng/mL (< 0.028) H* 11/07/17 06:15 - Assessment/Plan Pt. seen and eval. by me. She was sleeping comfortably. No new complaints. I agree with the A/P by the SURGERY ASSISTANT.RRR.
[2017-11-15] MEDS: Meropenem 1 GM in Sodium Chloride 0.9% 100 ML IVPB SCH (21:09)
[2017-11-15] MEDS: Atorvastatin Calcium 20 MG TAB PO SCH (21:10)
[2017-11-15] MEDS: Carbamide Peroxide 6.5% Otic Drops 15 ml Bottle EA EAR SCH (21:18)
--- NOTE | 2017-11-16 00:12 | CON ---
DATE OF CONSULTATION: 11/15/2017 REASON FOR CONSULTATION: Urinary tract infection. HISTORY OF PRESENT ILLNESS: A 77-year-old patient who has a history of coronary artery disease with recent admission with a [id number] elevation OK, status post PCI to LAD. At that time, she requi red management of Torsades de pointes. She declined a LifeVest and then was discharged and then retu rns now 2 weeks after discharge with nausea, vomiting, fever, and tachycardia, meeting sepsis criteri a. Given IV fluids and broad-spectrum coverage with levofloxacin, vancomycin, and cefepime. CT of a bdomen and pelvis showed staghorn calculus and evidence of pyelonephritis, right side with mild hydro nephrosis. Urology consult did not feel that she required stenting and also felt that there was a hi gh risk of complications related to her cardiac disease. The patient has been managed conservatively initially in the ICU and has been transferred to tele now. She is awake. She has a bit of a hearin g deficit. Her in the room also has hearing impairment. She has chest pain from the chest c ompressions during her episode of Torsades de pointes during the previous admission, which causes tarsha n when she coughs. She is coughing intermittently, but no headaches. No visual symptoms, sore throa t, odynophagia, dysphagia. No abdominal pain or diarrhea. She has a Cedillo catheter inserted. 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 PAST SURGICAL HISTORY: G-tube placement, appendectomy, cholecystectomy, and right frontal ventriculo stomy for management of intracranial bleed as well as inferior tentorial craniotomy and evacuation of cerebellar hematoma in 2007. CURRENT MEDICATIONS: Tylenol, DuoNeb, Cordarone, aspirin, Lipitor, Coreg, cefoxitin, Plavix, furosem dami. ALLERGIES: None. FAMILY HISTORY: Coronary artery disease and breast cancer. SOCIAL HISTORY: . Living in [facility] for the past 10 years. Ne chin a smoker. PHYSICAL EXAMINATION: VITAL SIGNS: T-max 98.4, blood pressure 112/55, pulse 84, respirations 16, O2 sat 94%. SKIN: The patient has a peripheral IV access, a Cedillo catheter in place. There is a left-sided heel tissue injury from pressure. HEENT: Ocular movements conjugate. Oral cavity with dentures. NECK: Supple. LUNGS: With symmetric clear breath sounds. HEART: S1, S2 regular rate. No S3, S4. ABDOMEN: Soft. Not distended or tender. No ascites. No bladder distention. No organomegaly. EXTREMITIES: No joint inflammatory activity. Plantar responses are indifferent on the right side an d flexor on the left. No clonus. She is able to lift her knees from the bed on both right and left side. She is able to move both hands and lift her arms up against gravity. 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 NEUROLOGIC: She is awake, oriented, follows commands, a little bit of dysarthria. LABORATORY DATA: White cell count was at 14.8 with 16% bands. Now, white cell count is down to 9.9, normal differential, hemoglobin 9.9. Sodium 140, creatinine 1.11. AST is down to 49, ALT down to 1 52, alkaline phosphatase 144, albumin 2.7. Urinalysis with 21-50 wbc's and greater than 50 rbc's. M icrobiology with Klebsiella pneumoniae in urine, which has ESBL phenotype. Blood culture, E. coli an d Proteus mirabilis. IMAGING STUDIES: There was a chest x-ray from 11/11/2017 with left lower lobe opacification. Abdome n and pelvis CT with a staghorn calculus in right kidney, mild hydronephrosis, diffuse inflammation i n the right kidney suspicious for pyelonephritis, right-sided mild retroperitoneal lymphadenopathy up to 1.2 cm, small left pleural effusion, possible rectal distention with impaction. ASSESSMENT: 1. Coronary artery disease with recent stenting and Torsades de pointes. 2. Staghorn calculus with mild obstruction and pyelonephritis. 3. Polymicrobial pyelonephritis including Escherichia coli, Proteus, and likely Klebsiella which has an ESBL phenotype. PLAN: At this point, transition to meropenem, treat for 21 to 28 days. The patient is at risk for r ecurrence of the process. In view of the persistence of the staghorn calculus, she would be eligible for lithotripsy or other stone removal technique in the future. The patient has a history of neurog enic bladder, but according to the , she did not carry a Cedillo catheter before this admission and if Cedillo is removed, then recommend monitoring postvoid residual.
[2017-11-16] MEDS: Furosemide 40 MG/4 ML VIAL SLOW IVP SCH (05:58)
[2017-11-16] MEDS: Sodium Chloride 0.45% 1,000 ML IV SCH ×2 (05:59→17:30)
[2017-11-16] MEDS: Carvedilol 3.125 MG TAB PO SCH ×3 (08:28→18:35)
[2017-11-16] MEDS: Clopidogrel Bisulfate 75 MG TAB PO SCH (08:29)
[2017-11-16] MEDS: Meropenem 1 GM in Sodium Chloride 0.9% 100 ML IVPB SCH ×2 (08:29→21:36)
[2017-11-16] MEDS: Amiodarone 200 MG TAB PO SCH (08:29)
[2017-11-16] MEDS: Famotidine 20 MG TAB PO SCH ×2 (08:29→21:36)
[2017-11-16] MEDS: Senokot S 8.6-50 MG TAB PO SCH ×2 (08:30→21:36)
[2017-11-16] MEDS: Polyethylene Glycol 3350 17 GM Packet PO SCH (08:30)
[2017-11-16] MEDS: Carbamide Peroxide 6.5% Otic Drops 15 ml Bottle EA EAR SCH ×2 (08:33→21:35)
--- NOTE | 2017-11-16 12:56 | PDOC.PN ---
- Subjective Encounter Start Date: 11/16/17 Encounter Start Time: 08:20 Pt seen for followup re: UTI. Denies fevers, chills. - Objective Resuscitation Status: Resuscitation Status FULL:Full Resuscitation MAR Reviewed: Yes Vital Signs & Weight: Vital Signs (12 hours) Temp Pulse Resp BP Pulse Ox 11/16/17 12:00 97.6 F 87 18 137/63 91 L 11/16/17 08:15 98.1 F 89 18 91 L 11/16/17 08:14 98.1 F 89 18 135/63 91 L 11/16/17 07:03 90 14 11/16/17 04:00 98.4 F 82 16 107/59 L 94 L Weight Admit Weight 191 lb Weight 174 lb 4 oz Most Recent Monitor Data Heart Rate from ECG 87 NIBP 133/63 NIBP BP-Mean 81 Respiration from ECG 20 SpO2 95 I&O: 11/15/17 11/16/17 11/17/17 06:59 06:59 06:59 Intake Total 2676 2160 Output Total 2800 3255 Balance -124 -1095 Result Diagrams: 11/13/17 03:30 11/13/17 04:41 EKG Reviewed by me: Yes (Tele: NSR) Phys Exam - Physical Examination Obesity HEENT: moist MMs Neck: supple Respiratory: clear to auscultation bilateral Cardiovascular: RRR Gastrointestinal: non-tender Neurological: moves all 4 limbs Psychiatric: normal affect Dx/Plan (1) UTI (urinary tract infection) Status: Acute Comment: continue antibiotics, appreciate ID service input (2) Bacteremia Code(s): R78.81 - BACTEREMIA Status: Acute Comment: continue antibiotics, appreciate ID service input (3) Dyslipidemia Code(s): E78.5 - HYPERLIPIDEMIA, UNSPECIFIED Status: Chronic Comment: continue statin (4) Excessive cerumen in both ear canals Code(s): H61.23 - IMPACTED CERUMEN, BILATERAL Status: Acute Comment: continue carbamide peroxide ear drops (5) HTN (hypertension) Code(s): I10 - ESSENTIAL (PRIMARY) HYPERTENSION Status: Chronic Qualifiers: Hypertension type: essential hypertension Qualified Code(s): I10 - Essential (primary) hypertension Comment: stable (6) Staghorn calculus Code(s): N20.0 - CALCULUS OF KIDNEY Status: Chronic Comment: followup with urology as outpatient (7) Septic shock Code(s): A41.9 - SEPSIS, UNSPECIFIED ORGANISM; R65.21 - SEVERE SEPSIS WITH SEPTIC SHOCK Status: Resolved - Plan * . Pt is on amiodarone for torsades. Also had a. fib with RVR and was electrically cardioverted during this admission. Review of Systems - Review of Systems Constitutional: negative: fever, chills, sweats, weakness, malaise Respiratory: negative: Cough, Dry, Shortness of Breath, Hemoptysis, SOB with Excertion, Pleuritic Pain, Sputum, Wheezing - Medications/Allergies Allergies/Adverse Reactions: Allergies Allergy/AdvReac Type Severity Reaction Status Date / Time No Known Allergies Allergy Verified 11/06/17 05:43 Medications: Current Medications Acetaminophen (Tylenol) 1,000 mg PO Q6H PRN PRN Reason: Headache/Fever or Mild Pain Last Admin: 11/15/17 23:15 Dose: 1,000 mg Albuterol/Ipratropium (Duoneb) 3 ml NEB [id number] ON LICENSE OF [facility] Last Admin: 11/16/17 07:03 Dose: 3 ml Amiodarone HCl (Cordarone) 400 mg PO BID ON LICENSE OF [facility] Stop: 11/17/17 21:01 Last Admin: 11/16/17 08:29 Dose: 400 mg Amiodarone HCl (Cordarone) 400 mg PO DAILY ON [facility] OF [facility] Aspirin (Aspirin Chewable) 81 mg PO DAILY ON [facility] OF [facility] Last Admin: 11/16/17 08:29 Dose: 81 mg Atorvastatin Calcium (Lipitor) 40 mg PO HS ON LICENSE OF [facility] Last Admin: 11/15/17 21:10 Dose: 40 mg Carbamide Perox/Anhydrous Glycerin (Debrox 6.5% Otic) 5 drop EA EAR BID ON LICENSE OF [facility] Last Admin: 11/16/17 08:33 Dose: 5 drop Carvedilol (Coreg) 1.5625 mg PO BID-WM ON LICENSE OF [facility] Last Admin: 11/16/17 08:28 Dose: 1.5625 mg Clopidogrel Bisulfate (Plavix) 75 mg PO DAILY ON LICENSE OF [facility] Last Admin: 11/16/17 08:29 Dose: 75 mg Famotidine (Pepcid) 20 mg PO BID ON LICENSE OF [facility] Last Admin: 11/16/17 08:29 Dose: 20 mg Furosemide (Lasix) 40 mg SLOW IVP 0600 ON LICENSE OF [facility] Last Admin: 11/16/17 05:58 Dose: 40 mg Guaifenesin (Robitussin Sf) 300 mg PO TIDPRN PRN PRN Reason: Cough Last Admin: 11/14/17 15:05 Dose: 300 mg Sodium Chloride (1/2 Normal Saline) 1,000 mls @ 75 mls/hr IV .[id number] ON LICENSE OF [facility] Last Admin: 11/16/17 05:59 Dose: 1,000 mls Meropenem 1 gm/ Sodium (Chloride) 100 mls @ 200 mls/hr IVPB Q12HR ON LICENSE OF [facility] Last Admin: 11/16/17 08:29 Dose: 100 mls Mineral Oil/White Petrolatum (Lacri-Lube Ointment) 0 gm EA EYE PRN PRN PRN Reason: Dry Eyes Ondansetron HCl (Zofran Odt) 4 mg PO Q6H PRN PRN Reason: Nausea/Vomiting Ondansetron HCl (Zofran) 4 mg IVP Q6H PRN PRN Reason: Nausea/Vomiting Polyethylene Glycol (Miralax) 17 gm PO DAILY ON [facility] OF [facility] Last Admin: 11/16/17 08:30 Dose: 17 gm Senna/Docusate Sodium (Senokot S) 1 tab PO BID ON LICENSE OF [facility] Last Admin: 11/16/17 08:30 Dose: 1 tab Sodium Chloride (Flush - Normal Saline) 10 ml IVF Q12HR ON LICENSE OF [facility] Last Admin: 11/16/17 08:33 Dose: Not Given Sodium Chloride (Flush - Normal Saline) 10 ml IVF PRN PRN PRN Reason: Saline Flush Last Admin: 11/09/17 11:11 Dose: 10 ml Sodium Chloride ([place] Nasal [place] 0.65%) 0 ml EA NARE TID PRN PRN Reason: Nasal Congestion
--- NOTE | 2017-11-16 15:46 | EKG ---
Test Reason : Blood Pressure : / mmHG Vent. Rate : 120 BPM Atrial Rate : 120 BPM P-R Int : 156 ms QRS Dur : 132 ms QT Int : 340 ms P-R-T Axes : 034 -16 163 degrees QTc Int : 480 ms Sinus tachycardia with Premature atrial complexes with Abberant conduction Possible Left atrial enlargement Left bundle branch block Abnormal ECG Confirmed by JOSH CAMP M.D. ([id number]), loan expeditor TRICIA MANUEL ([id number] on 11/16/2017 3:46:20 PM Referred By: Confirmed By:JOSH CAMP M.D.
--- NOTE | 2017-11-16 16:05 | EKG ---
Test Reason : Blood Pressure : / mmHG Vent. Rate : 133 BPM Atrial Rate : 133 BPM P-R Int : 132 ms QRS Dur : 150 ms QT Int : 338 ms P-R-T Axes : 026 -09 147 degrees QTc Int : 503 ms Sinus tachycardia Left bundle branch block Abnormal ECG Confirmed by JOSH CAMP M.D. ([id number]), scientific editor TRICIA MANUEL ([id number]) on 11/16/2017 4:05:00 PM Referred By: Confirmed By:JOSH CAMP M.D.
--- NOTE | 2017-11-16 18:00 | PRG ---
DATE OF SERVICE: 11/16/2017 SUBJECTIVE: Ms. Ornelas is doing well. She was last seen in the ICU. She was transferred to telem etry monitoring. No current complaints noted. Her rhythm appears stable. OBJECTIVE: VITAL SIGNS: Blood pressure 130/60, pulse 76, temperature 37. LUNGS: Clear to auscultation. HEART: Regular rate and rhythm. ABDOMEN: Soft, nontender, nondistended. EXTREMITIES: No edema. IMPRESSION: 1. Pneumonia. 2. Pulmonary arrest. 3. Coronary artery disease. 4. Status post stent placement. RECOMMENDATIONS: Ms. Ornelas appears to be doing well from a CV standpoint. We will continue curre nt therapy. She is currently on aspirin and Plavix. Decrease amiodarone to 400 mg p.o. q.a.m. Incr ease carvedilol to 3.125 mg one p.o. b.i.d.
[2017-11-16] MEDS ORDERED: Carvedilol 3.125 MG TAB PO SCH (18:30)
[2017-11-16] MEDS: Acetaminophen 500 MG TAB PO PRN (19:14)
[2017-11-16] MEDS: Atorvastatin Calcium 20 MG TAB PO SCH (21:35)
[2017-11-17] MEDS: Furosemide 40 MG/4 ML VIAL SLOW IVP SCH (05:51)
[2017-11-17] MEDS ORDERED: Clopidogrel Bisulfate 75 MG TAB ONE (06:36)
[2017-11-17 07:54] LABS: INR-International Normal Ratio 1.1; Prothrombin Time 14.5 SEC (12.0-14.7)
[2017-11-17] MEDS: Carbamide Peroxide 6.5% Otic Drops 15 ml Bottle EA EAR SCH ×2 (09:31→20:22)
[2017-11-17] MEDS: Famotidine 20 MG TAB PO SCH ×2 (09:31→20:22)
[2017-11-17] MEDS: Carvedilol 3.125 MG TAB PO SCH ×2 (09:31→17:12)
[2017-11-17] MEDS: Meropenem 1 GM in Sodium Chloride 0.9% 100 ML IVPB SCH ×2 (09:31→20:22)
[2017-11-17] MEDS: Polyethylene Glycol 3350 17 GM Packet PO SCH (09:32)
[2017-11-17] MEDS: Senokot S 8.6-50 MG TAB PO SCH ×2 (09:32→20:22)
[2017-11-17] MEDS: Clopidogrel Bisulfate 75 MG TAB PO SCH (10:48)
[2017-11-17] MEDS: Sodium Chloride 0.45% 1,000 ML IV SCH ×2 (10:49→22:52)
--- NOTE | 2017-11-17 12:09 | SPC ---
LEFT UPPER EXTREMITY PICC LINE PLACEMENT WITH ULTRASOUND GUIDANCE: HISTORY: Infection. IV antibiotics required. COMPARISON: None. FINDINGS: Technically successful left upper extremity PICC line placement with ultrasound guidance. Single lum en 5 [place] catheter terminates in the right atrium. Trim length is 46 cm. Catheter flushes and asp irates without difficulty. TECHNIQUE: Consent was obtained to perform a left upper extremity PICC line placement with ultrasound guidance. The left arm was prepped and draped in sterile fashion. 1% Lidocaine, buffered with sodium bicarbon ate, was used for local anesthesia. Under ultrasound guidance, a micropuncture needle was used to ca nnulate the brachial vein. A 0.018 guidewire was advanced through the needle to the level superior v nestor cava. Under fluoroscopy, the wire was advanced into the inferior vena cava to document venous ac cess. Wire was subsequently pulled back to the right atrium. The tract was dilated. The single lum en 5 [place] catheter was advanced over the wire. The wire was removed. Catheter flushes and aspirat es without difficulty. Trim length is 46 cm. IMPRESSION: Successful left upper extremity PICC placement with ultrasound guidance. POS: [facility]
--- NOTE | 2017-11-17 13:42 | PDOC.PN ---
- Subjective Encounter Start Date: 11/17/17 Encounter Start Time: 08:00 Pt seen for followup re: UTI. denies chest pain, shortness of breath, fevers or chills. - Objective Resuscitation Status: Resuscitation Status FULL:Full Resuscitation MAR Reviewed: Yes Vital Signs & Weight: Vital Signs (12 hours) Temp Pulse Resp BP Pulse Ox 11/17/17 12:08 97.9 F 73 18 135/66 93 L 11/17/17 07:53 97.9 F 73 18 92 L 11/17/17 07:51 98.1 F 79 16 130/67 92 L 11/17/17 06:46 79 16 94 L 11/17/17 04:57 94 L 11/17/17 04:00 97.9 F 78 12 123/59 L 92 L Weight Admit Weight 191 lb Weight 173 lb Most Recent Monitor Data Heart Rate from ECG 87 NIBP 133/63 NIBP BP-Mean 81 Respiration from ECG 20 SpO2 95 I&O: 11/16/17 11/17/17 11/18/17 06:59 06:59 06:59 Intake Total 2160 2248 Output Total 3255 3175 Balance -1095 -927 Result Diagrams: 11/13/17 03:30 11/13/17 04:41 EKG Reviewed by me: Yes (Tele: NSR) Phys Exam - Physical Examination Obese HEENT: moist MMs Neck: supple Respiratory: clear to auscultation bilateral Cardiovascular: RRR Gastrointestinal: soft Neurological: moves all 4 limbs Psychiatric: normal affect Dx/Plan (1) UTI (urinary tract infection) Status: Acute Comment: continue antibiotics (2) Bacteremia Code(s): R78.81 - BACTEREMIA Status: Acute Comment: continue antibiotics (3) Dyslipidemia Code(s): E78.5 - HYPERLIPIDEMIA, UNSPECIFIED Status: Chronic Comment: on statin (4) Excessive cerumen in both ear canals Code(s): H61.23 - IMPACTED CERUMEN, BILATERAL Status: Acute Comment: on carbamide peroxide ear drops (5) HTN (hypertension) Code(s): I10 - ESSENTIAL (PRIMARY) HYPERTENSION Status: Chronic Qualifiers: Hypertension type: essential hypertension Qualified Code(s): I10 - Essential (primary) hypertension Comment: stable (6) Staghorn calculus Code(s): N20.0 - CALCULUS OF KIDNEY Status: Chronic Comment: followup with urology as outpatient (7) Septic shock Code(s): A41.9 - SEPSIS, UNSPECIFIED ORGANISM; R65.21 - SEVERE SEPSIS WITH SEPTIC SHOCK Status: Resolved - Plan * . Likely discharge tomorrow to OR. Review of Systems - Review of Systems Constitutional: negative: fever, chills, sweats, weakness, malaise Respiratory: negative: Cough, Shortness of Breath, SOB with Excertion, Pleuritic Pain, Wheezing - Medications/Allergies Allergies/Adverse Reactions: Allergies Allergy/AdvReac Type Severity Reaction Status Date / Time No Known Allergies Allergy Verified 11/06/17 05:43 Medications: Current Medications Acetaminophen (Tylenol) 1,000 mg PO Q6H PRN PRN Reason: Headache/Fever or Mild Pain Last Admin: 11/16/17 19:14 Dose: 1,000 mg Albuterol/Ipratropium (Duoneb) 3 ml NEB Q4H PRN PRN Reason: SOB Amiodarone HCl (Cordarone) 400 mg PO DAILY [facility] Aspirin (Aspirin Chewable) 81 mg PO DAILY [facility] Last Admin: 11/17/17 10:48 Dose: 81 mg Atorvastatin Calcium (Lipitor) 40 mg PO HS [facility] Last Admin: 11/16/17 21:35 Dose: 40 mg Carbamide Perox/Anhydrous Glycerin (Debrox 6.5% Otic) 5 drop EA EAR BID [facility] Last Admin: 11/17/17 09:31 Dose: 5 drop Carvedilol (Coreg) 3.125 mg PO BID-[facility] Last Admin: 11/17/17 09:31 Dose: 3.125 mg Clopidogrel Bisulfate (Plavix) 75 mg PO DAILY [facility] Last Admin: 11/17/17 10:48 Dose: 75 mg Famotidine (Pepcid) 20 mg PO BID [facility] Last Admin: 11/17/17 09:31 Dose: 20 mg Furosemide (Lasix) 40 mg SLOW IVP 0600 [facility] Last Admin: 11/17/17 05:51 Dose: 40 mg Guaifenesin (Robitussin Sf) 300 mg PO TIDPRN PRN PRN Reason: Cough Last Admin: 11/14/17 15:05 Dose: 300 mg Sodium Chloride (1/2 Normal Saline) 1,000 mls @ 75 mls/hr IV .[id number] [facility] Last Admin: 11/17/17 10:49 Dose: 1,000 mls Meropenem 1 gm/ Sodium (Chloride) 100 mls @ 200 mls/hr IVPB Q12HR [facility] Last Admin: 11/17/17 09:31 Dose: 100 mls Mineral Oil/White Petrolatum (Lacri-Lube Ointment) 0 gm EA EYE PRN PRN PRN Reason: Dry Eyes Ondansetron HCl (Zofran Odt) 4 mg PO Q6H PRN PRN Reason: Nausea/Vomiting Ondansetron HCl (Zofran) 4 mg IVP Q6H PRN PRN Reason: Nausea/Vomiting Polyethylene Glycol (Miralax) 17 gm PO DAILY [facility] Last Admin: 11/17/17 09:32 Dose: 17 gm Senna/Docusate Sodium (Senokot S) 1 tab PO BID [facility] Last Admin: 11/17/17 09:32 Dose: 1 tab Sodium Chloride (Flush - Normal Saline) 10 ml IVF Q12HR [facility] Last Admin: 11/17/17 09:18 Dose: Not Given Sodium Chloride (Flush - Normal Saline) 10 ml IVF PRN PRN PRN Reason: Saline Flush Last Admin: 11/09/17 11:11 Dose: 10 ml Sodium Chloride ([place] Nasal [place] 0.65%) 0 ml EA NARE TID PRN PRN Reason: Nasal Congestion
--- NOTE | 2017-11-17 15:42 | PRG ---
DATE OF SERVICE: 11/17/2017 OBJECTIVE: VITAL SIGNS: Ms. Ornelas is afebrile, rates in the 70s, respiratory rate is 18, oximetry is 93 on r oom air, blood pressure 135/66. GENERAL: Her speech is much more fluent. She is much quicker to answer questions than she was last week. LUNGS: Clear. HEART: Regular rhythm. ABDOMEN: Soft. She has a PICC line in place. IMPRESSION: Polymicrobial sepsis secondary to staghorn calculus and pyelonephritis. PLAN: Long-term IV antibiotics, supportive care, physical therapy, met with the and answered all of his questions.
--- NOTE | 2017-11-17 18:44 | PRG ---
DATE OF SERVICE: 11/17/2017 SUBJECTIVE: Ms. Ornelas continues to slowly improve. No current complaints. PHYSICAL EXAMINATION: VITAL SIGNS: Blood pressure 134/66, pulse 85, temperature 97.8. LUNGS: Clear to auscultation. HEART: Regular rate and rhythm. ABDOMEN: Soft, nontender, nondistended. EXTREMITIES: No edema. IMPRESSION: 1. Sepsis, now resolved. 2. Recent cardiopulmonary arrest. 3. Coronary artery disease, status post stent placement. 4. History of torsade de pointes. RECOMMENDATIONS: I asked Dr. Mclaughlin to consult Ms. Ornelas. She has had 2 cardiopulmonary arrests ov er the last month. Her last episode did occur in the context of troponin of 40. After reviewing her angio from early October, she has severe stenosis of the right coronary artery that appears too small to approach percutaneously. She also has a completely occluded OM branch, this is a large branching vessel. She likely became ischemic to the distribution of the event. She currently has no symptoms of angina. At this point, would continue with conservative therapy. I have once again discussed the importance of LifeVest and the risk of sudden cardiac with the in addition to the miriam ent. States she will not tolerate the best and understands the risks. Otherwise, we will continue a miodarone therapy.
[2017-11-17] MEDS: Atorvastatin Calcium 20 MG TAB PO SCH (20:22)
[2017-11-17] MEDS: Acetaminophen 500 MG TAB PO PRN (20:23)
--- NOTE | 2017-11-17 23:11 | CON ---
ELECTROPHYSIOLOGY CONSULTATION DATE OF CONSULTATION: 11/17/2017 Ada Romeo, Nurse Practitioner dictating as scribe for Dr. Rip Mclaughlin. REFERRING PHYSICIAN: Dr. Marcello Castro. REASON FOR CONSULTATION: Ischemic cardiomyopathy with severely reduced EF and a left-bundle branch block. HISTORY OF PRESENT ILLNESS: Ms. Ornelas is a pleasant 77-year-old female with a very complicated medical history of late. Going back her recent issues started on 10/17 when she was admitted to [facility] via the emergency room for chest and back pain. She was diagnosed with a non-ST elevation PR, unstable angina and it was found to have left bundle branch block. She had a heart catheterization done on the day of admission and had a stent placed to the LAD by Dr. Castro. At that time, her LVEF was 50-55% on 10/17/2017. On the , she had a Code Blue with Polymorphic VT / possible torsades de pointes, she was intubated and moved to the ICU. Prior to discharge, she was fitted with a LifeVest, but reports that she could not tolerate it and was very uncomfortable and she was not willing to wear it. With that hospitalization, she was discharged and was to follow up as an outpatient for routine management ; however, on the , the patient was readmitted to [place] for UTI and bacteremia and was in septic shock. She had elevated lactic acid levels on presentation also with positive troponins that peaked at 40. She was also found to have second calculus in the right kidney by CT imaging with mild hydronephrosis and a pyelonephritis as well. During this hospitalization, she did not undergo revascularization, however, has also had paroxysmal atrial fibrillation with RVR and required cardioversion on 11/06/[address] Hahn. On the , she unfortunately had PEA arrest in the setting of severe sepsis and shock with E. coli bacteremia as well as lactic acidosis and Infectious Disease was consulted. She has a PICC line in place and anticipates discharge to snf in the near future with long-term IV antibiotics. After her PEA arrest on the , she had a repeat echocardiogram performed on 11/09, revealing severe decrease in her EF, now estimated at 20-25%, prompting the EP consultation. To do fine, Ms. Ornelas quite exhausted, but anticipating discharge to a snf either tomorrow or in the near future and also as mentioned above to receive long-term IV antibiotics in the setting of her sepsis and UTIs. She is currently on amiodarone daily for atrial fibrillation and torsades. She is feeling fairly well. She denies any heart racing, palpitations, chest pain or pressure. She does experience significant fatigue and dyspnea. She has not had any stroke or stroke-like symptoms and other than fatigue and feeling rundown. She has no complaints today. REVIEW OF SYSTEMS: Twelve-point review of systems was conducted and is negative except that listed in the HPI. PAST MEDICAL HISTORY: 1. Coronary artery disease with recent non-ST elevation PR with stent placed to the LAD. 2. History of Polymorphic VT within 48 hours of PR 3. Hypertension. 4. Hemorrhagic CVA with residual right-sided hemiparesis, greater in the right arm than the right leg. 5. Acid reflux. 6. Depression. 7. GI bleed. 8. Neurogenic bladder. 9. PEA arrest. 10. Left bundle branch block. 11. E. coli bacteremia and urinary tract infection. 12. Pyelonephritis. 13. Staghorn calculi. 14. Hydronephrosis. 15. Dyslipidemia. PAST SURGICAL HISTORY: G-tube placement, appendectomy, cholecystectomy, right frontal ventriculostomy for management of intracranial bleed as well as inferior tentorial craniotomy for cerebellar hematoma evacuation in 2007. ALLERGIES: None. HOME MEDICATIONS: See documented list. CURRENT MEDICATIONS: Include amiodarone 400 mg daily, aspirin 81 mg daily, Lipitor 40 mg p.o. at bedtime, Debrox ear drops b.i.d. each ear, Coreg 3.125 mg p.o. b.i.d., Plavix 75 mg daily, Pepcid 20 mg b.i.d., Lasix 40 mg daily, meropenem 1 gram IV q.12 hours, MiraLax 17 grams daily, senna 1 tab p.o. b.i.d. PHYSICAL EXAMINATION: VITAL SIGNS: Most recent vital signs: 97.9 degrees Fahrenheit, pulse 73, respirations 18, oxygen saturation 93% on room air, blood pressure 135/66. GENERAL: This is an elderly woman, well-groomed and well-nourished, in no acute distress. She was sleeping peacefully prior to exam. Awakened, she is alert and oriented. HEENT: Speech is clear and affect is appropriate. NECK: Supple without jugular venous distention. CHEST: Clear to auscultation bilaterally without wheezes, crackles, or rhonchi. Heart rate is regularly regular with a normal S1, S2. No significant murmur, rub, or gallop appreciated. EXTREMITIES: Warm and dry to touch without clubbing, cyanosis, or edema. ABDOMEN: Soft and nontender to palpation without palpable masses. Positive bowel tones are noted throughout. Abdomen is obese. NEUROLOGIC: Grossly intact with the exception of the right-sided residual deficits from her stroke. Gait was not assessed. DATABASE: Recent lab results, hematology: WBC is 12.5, hemoglobin 9.2, hematocrit 28.3, platelet count is 140. Chemistry: Sodium 140, potassium 3.5, chloride 109, carbon dioxide 24, BUN is 25, creatinine is 1.11. Magnesium is 1.7. Serial troponins were performed starting on 11/06 and peaked at 40.9 on . Review of telemetry and EKG reveals sinus rhythm with a left bundle-branch block. A 12-lead EKG on 11/07 reveals atrial fibrillation with RVR with rates up to 136 beats per minute prior to cardioversion. Since then patient has largely been maintained in sinus rhythm with her bundle-branch block and occasional sinus tachycardia and PACs. IMPRESSION: 1. History of Polymorphic VT in a setting of recent PR 2. H/O recent PEA in the setting of severe sepsis. 2. Ischemic cardiomyopathy, left ventricular ejection fraction most recently 20 -25% on 11/09/2017 (previously 50-55% on 10/17/2017). 3. Recent non-ST elevation myocardial infarction with stent placed to the left anterior descending on 10/17/2017. 4. Recent pulseless electrical activity arrest on 11/07/2017 in the setting of urosepsis/bacteremia. 5. Paroxysmal atrial fibrillation with rapid ventricular response requiring cardioversion, now on amiodarone, currently maintaining sinus rhythm on monitor. PLAN: 1. Continue amiodarone at 400 mg daily then taper in 2 weeks to 200mg a day. 2. A long discussion was had with the patient and her regarding LifeVest and protection from additional arrhythmias in the setting of severely reduced EF and ventricular arrhythmias associated. 3. Recommend reevaluation of EF in the 90 days post-revascularization. The patient continued to have an EF less than 35%, would be a candidate for an ICD. 4. If qualifies for an ICD, would proceed with biventricular device given her left bundle-branch block. 5. Overall, the patient would be a very poor candidate for device implant at this time given her continued treatment for sepsis and bacteremia. No arrhythmias were seen that would indicate an immediate need for pacing, so the recommendation will be for a LifeVest upon discharge. If the patient is agreeable and reevaluation of the EF and 90 days post-revascularization with optimal medical management by Cardiology to assess for need of ICD. We will follow up as an outpatient. Thank you for allowing us to participate in the care of this patient. ALIREZA
[2017-11-18] MEDS: Furosemide 40 MG/4 ML VIAL SLOW IVP SCH (05:29)
[2017-11-18] MEDS: Polyethylene Glycol 3350 17 GM Packet PO SCH (08:16)
[2017-11-18] MEDS: Famotidine 20 MG TAB PO SCH (08:16)
[2017-11-18] MEDS: Carbamide Peroxide 6.5% Otic Drops 15 ml Bottle EA EAR SCH (08:16)
[2017-11-18] MEDS: Meropenem 1 GM in Sodium Chloride 0.9% 100 ML IVPB SCH (08:17)
[2017-11-18] MEDS: Senokot S 8.6-50 MG TAB PO SCH (08:17)
[2017-11-18] MEDS: Clopidogrel Bisulfate 75 MG TAB PO SCH (08:17)
[2017-11-18] MEDS: Carvedilol 3.125 MG TAB PO SCH ×2 (08:17→16:49)
--- NOTE | 2017-11-18 08:29 | PRG ---
DATE OF SERVICE: 11/17/2017 SUBJECTIVE: The patient awake, alert, oriented. No cough, no back pain. He has a [place] catheter. No change in neurological status. LABORATORY DATA: White cell count 9.9, hemoglobin 9.9, platelets 185, and creatinine 1.11. Sodium 140, AST down to 49 , ALT 152, albumin 2.7. Microbiology with ESBL Klebsiella pneumoniae in 2 sets of urine and E. coli and Proteus mirabilis in 2 sets of blood cultures plus E. coli from urine. The patient had PICC line inserted. ASSESSMENT AND DISCUSSION: Coronary artery disease, stenting, Torsades de Pointes, staghorn calculus , polymicrobial pyelonephritis with 3 different organisms, one of them ESBL phenotype. Currently on meropenem and then switched to Invanz or continue meropenem in the outpatient setting or in the [facility] where she comes from. Due to cost issues, most likely she will continue on meropenem the cur rent dose schedule. This will be continued for 4 weeks after discharge. Eventually, the patient milad l be eligible for lithotripsy. Repeat urine culture at the end of therapy.
[2017-11-18] MEDS ORDERED: Amiodarone 200 MG TAB PO SCH (09:00)
[2017-11-18 11:22] LABS: Anion Gap 11 mmol/L (10-20); BUN (Urea Nitrogen) 12 mg/dL (9.8-20.1); Calc. Creatinine Clearance 68 mL/min (70-130); Calcium 8.3 mg/dL (7.8-10.44); Carbon Dioxide 25 mmol/L (23-31); Chloride 106 mmol/L (98-107); Estimated GFR-MDRD 65; Glucose 97 mg/dL (83-110); Sodium 139 mmol/L (136-145)
[2017-11-18 11:29] LABS: Eosinophils 1 % (0-10); Hemoglobin 10.9 g/dL (12.0-16.0); Lymphocytes 43 % (21-51); MDiff Complete? YES; Mean Corpuscular HGB CONC 32.9 g/dL (32.0-36.0); Mean Corpuscular Hemoglobin 32.7 pg (27.0-31.0); Mean Corpuscular Volume 99.6 fl (81.0-99.0); Mean Platelet Volume 7.4 fL (7.4-10.4); Monocytes 11 % (0-10); Neutrophil 43 % (42-75); PLT Morphology Comment Appears Increased; Platelet Count 442 thou/uL (130-400); Polychromasia SLIGHT = 2-3 cells (100X) (0-2/hpf); RBC Distribution Width 13.9 % (11.5-14.5); Reactive Lymphocytes 1 % (0-10); Red Blood Cell (RBC) Count 3.33 mill/uL (4.20-5.40)
[2017-11-18 11:34] LABS: Potassium 2.8 mmol/L (3.5-5.1)
--- NOTE | 2017-11-18 11:41 | PRG ---
DATE OF SERVICE: 11/18/2017 SUBJECTIVE: Ms. Ornelas is improving. She has no new complaints today. No angina, no CHF, no PND or orthopnea. OBJECTIVE: VITAL SIGNS: Blood pressure 152/67, heart rate 82, respiration is 18, temperature 98.2 degrees Fahrenheit. GENERAL: Alert and oriented woman in no apparent distress. NECK: Supple. Jugular veins not distended. CHEST: Coarse, no crackles. CARDIOVASCULAR: Heart sounds are regular to rate and rhythm. No murmur or gallop. ABDOMEN: Benign. Bowel sounds positive. EXTREMITIES: Lower extremities without edema, clubbing or cyanosis. DATABASE: The telemetry reveals PVCs, no VT. ASSESSMENT AND PLAN: Ms. Ornelas is a pleasant 77-year-old woman with history of coronary artery disease and recurrent non-ST elevation myocardial infarction. She did have a LAD territory stent placed in mid October. At the end of October she developed pulseless electrical activity type of arrest. She had marked bump on her troponin at that time as well and required advanced life support. This was in the setting of severe urosepsis. This seems to have improved and resolved now. Transient atrial fibrillation was also noted. She is on amiodarone currently. LVEF has dropped from 55 % to 20-25% on the most recent echo. PLAN: 1. I agree with amiodarone. 2. Hence the recent myocardial infarction and stent placement, would hold off on ICD implantation. 3. LifeVest was recommended to the patient, but she is refusing as had not been able to wear it in the past. 4. Continue heart failure therapy. 5. Continue antibiotics with a PICC line in place as per primary team to resolve uro-sepsis. 6. Routine followup. [facility]
[2017-11-18] MEDS ORDERED: Potassium Chloride 40 MEQ in Premix Bag 1 BAG IVPB SCH (11:45)
[2017-11-18] MEDS: Sodium Chloride 0.45% 1,000 ML IV SCH (13:03)
[2017-11-18 14:50] VITALS: BMI 30.6
[2017-11-18 16:01] VITALS: BP 129/66; TEMP 95.9
--- NOTE | 2017-11-18 16:56 | PRG ---
DATE OF SERVICE: 11/18/2017 SUBJECTIVE: Ms. Ornelas is still awaiting placement. OBJECTIVE: VITAL SIGNS: She is afebrile, heart rate 73, respiratory rate 19, oximetry is 98 on room air, blood pressure 129/66. She is back to her baseline for the most part. LUNGS: Clear. HEART: Regular rhythm. ABDOMEN: Soft. LABORATORY DATA: White count 6, hemoglobin 10.9, platelets 442,000. Electrolytes are normal with th e exception of potassium at 2.8 this morning. IMPRESSION: Urinary tract sepsis with pyelonephritis and staghorn calculus, tentatively scheduled fo r long-term IV antibiotics via PICC line. She appears to be medically stable.
--- NOTE | 2017-11-18 20:06 | DIS ---
PRIMARY CARE PHYSICIAN: Dr. Aaron Ricci. DATE OF ADMISSION: 11/06/2017 DATE OF DISCHARGE: 11/18/2017 DISCHARGE DIAGNOSES: 1. Severe sepsis with shock. 2. Urinary tract infection. 3. Demand ischemia. 4. Acute kidney injury. 5. Hypercalcemia. 6. Hyperkalemia. 7. Hyponatremia. 8. Metabolic acidosis, lactic acidosis. 9. Shock liver. 10. Right hydroureter. 11. Right staghorn calculus. 12. Cerumen impaction. 13. Atrial fibrillation. PROCEDURES DURING THIS HOSPITALIZATION: 1. On 11/07/2017, she underwent electrical cardioversion for paroxysmal atrial fibrillation. 2. On 11/07/2017, she was intubated and mechanically ventilated. 3. On 11/11/2017, she was extubated. 4. On 11/17/2017, patient had a PICC line placed. INVESTIGATIONS DURING THIS HOSPITALIZATION: 1. CT scan of the abdomen and pelvis without intravenous contrast on 11/06/2017, which showed stagho rn calculus in the right kidney with mild hydronephrosis, diffuse inflammation greater than expected for degree of hydronephrosis was suspicious for pyelonephritis, mild right-sided retroperitoneal lymp hadenopathy, indeterminate, small left pleural effusion, rectum distended to 8 cm with formed stool, potentially impacted. 2. Noncontrast CT scan of the brain on 11/06/2017, which did not show any acute intracranial hemorrh age or mass effect. 3. A 2D echocardiogram on 11/09/2017, which showed left ventricular ejection fraction of 20%-25%, mi ldly dilated left atrium, moderately enlarged right atrium, severely enlarged right ventricular cavit y, moderately increased left ventricular size, mild mitral regurgitation, and [id number] tricus pid regurgitation. MICROBIOLOGY REPORTS: Blood cultures on 11/05/2017, which grew Escherichia coli and Proteus mirabili s. Urine culture on 11/05/2017, which grew Escherichia coli and Klebsiella pneumoniae. Urine cultur e on 11/06/2017, which grew Klebsiella pneumoniae. Blood cultures from 11/11/2017, which did not zeb w any growth in 5 days. DISCHARGE MEDICATIONS: DuoNeb q.4 hours p.r.n., amiodarone 400 mg daily, aspirin 325 mg daily, Lipit or 40 mg at bedtime, Dulcolax 10 mg daily as needed, Debrox eardrops, Coreg 3.125 mg 2 times a day, P lavix 75 mg daily, clotrimazole p.r.n., Lasix 40 mg daily, lisinopril 10 mg daily, meropenem 1 gram I V every 12 hours to 12/13/2017, nitroglycerin p.r.n., MiraLax 17 grams daily as needed, potassium chl oride 20 mEq daily. HOSPITAL COURSE: Ms. Ornelas is a pleasant 77-year-old lady who was admitted to [facility] on 11/06/2017 for severe sepsis with shock secondary to urinary tract infection. She was also found to have a large right-sided staghorn calculus. She was admitted to Critical Care Unit . She also had acute kidney injury as well as elevated troponin, likely secondary to demand ischemia . She had imaging studies as described above. She was seen by Pulmonology, Cardiology, Urology, Nephrology, Infectious Diseases, and Electrophysiol ogy services during this hospitalization. On 11/07/2017, she was intubated and mechanically ventilated for acute respiratory failure. On 11/07, she also underwent electrical cardioversion for paroxysmal atrial fibrillation. She was start ed on amiodarone. She was extubated on 11/11/2017. She was seen by Urology service. I should note that she had ultrasound, renal protocol on 11/08/2017 , which did not show any new imaging findings on the CT exam. She had a large left renal cyst and la rge right staghorn calculus. Her creatinine improved during this hospitalization, 0.85 on the day of discharge, down from a peak o f 2.33 on 11/08/2017. Infectious Disease service was consulted because of the positive blood and urine cultures. Patient i s advised to continue meropenem until 12/13/2017. She is also advised to have weekly CBC, CRP, and C MP. She is also advised to have a repeat urinalysis and urine culture at the end of treatment. She is also advised to follow up with Urology service as outpatient for management of staghorn calcul us. Towards the end of this hospitalization, she was also seen by Electrophysiology Service. After discu ssion with the patient, she did not wish to use LifeVest for ischemic cardiomyopathy. Electrophysiol ogy Service recommends re-evaluation of ejection fraction in 90 days post-revascularization and if th e patient continued to have an EF of less than 35% at that time, she would be a candidate for ICD. On the day of discharge, she has sodium 139, potassium 2.8, which is being replaced, creatinine 0.85. White count 6000, hemoglobin 10.9, and platelet count of 442,000. Please note that she needed vasopressors because of shock. She also had shock liver with liver funct ion abnormalities. These abnormalities improved. Many thanks for allowing me to participate in your patient's care. Please feel free to contact me wi th any questions or concerns. DISCHARGE DESTINATION: [facility], from where patient was admitted to this hospital. TOTAL AMOUNT OF TIME SPENT COORDINATING THIS DISCHARGE: 38 minutes. CONSULTATIONS DURING THIS HOSPITALIZATION: Pulmonology, Dr. Proctor; cardiology, Dr. Hutchinson; urolo gy, Dr. Andrew; nephrology, Dr. Patel; infectious diseases, Dr. Ramon; and electrophysiology, Dr. Mclaughlin . ADDENDUM: Ms. Ornelas was also found to have cerumen impaction. She has been started on ear drops for the same. I assessed Ms. Ornelas on the day of discharge. She denied any chest pain or shortness of breath. PHYSICAL EXAMINATION: VITAL SIGNS: Stable. S1 and S2 are heard, regular. LUNGS: Clear to auscultation bilaterally.
--- NOTE | 2017-11-18 23:00 | EKG ---
Test Reason : Blood Pressure : / mmHG Vent. Rate : 112 BPM Atrial Rate : 105 BPM P-R Int : 000 ms QRS Dur : 130 ms QT Int : 294 ms P-R-T Axes : 000 091 092 degrees QTc Int : 401 ms Atrial fibrillation with rapid ventricular response Non-specific intra-ventricular conduction block Anterolateral infarct (cited on or before 07-NOV-2017) Abnormal ECG When compared with ECG of 07-NOV-2017 08:28, (Unconfirmed) QRS duration has increased Serial changes of evolving Anterior infarct Present Serial changes of evolving Anterolateral infarct Present Confirmed by Dalton SHEPHERD ([id number]) on 11/18/2017 11:00:26 PM Referred By: GA Confirmed By:Dalton SHEPHERD
--- NOTE | 2017-11-18 23:00 | EKG ---
Test Reason : Blood Pressure : / mmHG Vent. Rate : 119 BPM Atrial Rate : 119 BPM P-R Int : 124 ms QRS Dur : 120 ms QT Int : 382 ms P-R-T Axes : 056 041 -32 degrees QTc Int : 537 ms Sinus tachycardia Low voltage QRS Cannot rule out Anteroseptal infarct , age undetermined Abnormal ECG When compared with ECG of 06-NOV-2017 03:49, (Unconfirmed) Abberant conduction is no longer Present Left bundle branch block is no longer Present Minimal criteria for Anteroseptal infarct are now Present Confirmed by Dalton SHEPHERD ([id number]) on 11/18/2017 10:59:56 PM Referred By: JANY Confirmed By:Dalton SHEPHERD
--- NOTE | 2017-11-18 23:00 | EKG ---
Test Reason : Blood Pressure : / mmHG Vent. Rate : 136 BPM Atrial Rate : 136 BPM P-R Int : 000 ms QRS Dur : 112 ms QT Int : 296 ms P-R-T Axes : 000 064 216 degrees QTc Int : 445 ms Atrial fibrillation with rapid ventricular response with premature ventricular or aberrantly conducte d complexes Low voltage QRS Cannot rule out Anteroseptal infarct (cited on or before 07-NOV-2017) Marked ST abnormality, possible inferolateral subendocardial injury Abnormal ECG When compared with ECG of 07-NOV-2017 07:26, (Unconfirmed) Atrial fibrillation has replaced Sinus rhythm Serial changes of evolving Anteroseptal infarct Present Confirmed by Dalton SHEPHERD ([id number]) on 11/18/2017 11:00:15 PM Referred By: JANY Confirmed By:Dalton SHPEHERD
[2017-11-19] MEDS ORDERED: Furosemide 40 MG TAB PO SCH (07:30)
[2017-11-19] MEDS ORDERED: Potassium Chloride 20 MEQ TAB PO SCH (08:00)
== END 2017-11-18 17:57 | DRG 870 ==
LOC: ERS 23:18 → ERHOLD 11-06 02:34 → CCU 11-06 05:20 → 2NO 11-13 17:31
PROVIDERS: ADMIT Family Medicine; ATTEND Family Medicine
PROC: 02HV33Z Insertion of Infusion Device into Superior Vena Cava, Percutaneous Approach (ICD-10-PCS; 2017-11-06)
PROC: 5A1955Z Respiratory Ventilation, Greater than 96 Consecutive Hours (ICD-10-PCS; principal; 2017-11-07)
PROC: 5A12012 Performance of Cardiac Output, Single, Manual (ICD-10-PCS; 2017-11-07)
PROC: 5A2204Z Restoration of Cardiac Rhythm, Single (ICD-10-PCS; 2017-11-07)
PROC: 0BH17EZ Insertion of Endotracheal Airway into Trachea, Via Natural or Artificial Opening (ICD-10-PCS; 2017-11-07)
PROC: 02HV33Z Insertion of Infusion Device into Superior Vena Cava, Percutaneous Approach (ICD-10-PCS; 2017-11-17)
PROC: B548ZZA Ultrasonography of Superior Vena Cava, Guidance (ICD-10-PCS; 2017-11-17)
DX: A41.51 Sepsis due to Escherichia coli [E. coli] (principal); I21.4 Non-ST elevation (NSTEMI) myocardial infarction; I46.9 Cardiac arrest, cause unspecified; J96.01 Acute respiratory failure with hypoxia; K72.00 Acute and subacute hepatic failure without coma; E83.52 Hypercalcemia; I24.8 Other forms of acute ischemic heart disease; N17.0 Acute kidney failure with tubular necrosis; R65.21 Severe sepsis with septic shock; I50.23 Acute on chronic systolic (congestive) heart failure; G93.40 Encephalopathy, unspecified; N13.6 Pyonephrosis; E87.1 Hypo-osmolality and hyponatremia; E87.2 Acidosis; N13.4 Hydroureter; I13.0 Hypertensive heart and chronic kidney disease with heart failure and stage 1 through stage 4 chronic kidney disease, or unspecified chronic kidney disease; I69.251 Hemiplegia and hemiparesis following other nontraumatic intracranial hemorrhage affecting right dominant side; A41.4 Sepsis due to anaerobes; I25.82 Chronic total occlusion of coronary artery; E87.5 Hyperkalemia; N20.0 Calculus of kidney; I48.0 Paroxysmal atrial fibrillation; I25.5 Ischemic cardiomyopathy; I44.7 Left bundle-branch block, unspecified; Z95.5 Presence of coronary angioplasty implant and graft; H61.23 Impacted cerumen, bilateral; E11.22 Type 2 diabetes mellitus with diabetic chronic kidney disease; Z16.24 Resistance to multiple antibiotics; Z16.12 Extended spectrum beta lactamase (ESBL) resistance; N31.9 Neuromuscular dysfunction of bladder, unspecified; K21.9 Gastro-esophageal reflux disease without esophagitis; F32.9 Major depressive disorder, single episode, unspecified; I25.119 Atherosclerotic heart disease of native coronary artery with unspecified angina pectoris; R47.1 Dysarthria and anarthria; N18.3 Chronic kidney disease, stage 3 (moderate); R31.9 Hematuria, unspecified
CPT/HCPCS: 36415; 36556; 36569; 51701; 70450; 71045; 74176; 76705; 76770; 80048; 80053; 81003; 81015; 82533; 82553; 82805; 83605; 83690; 83735; 84100; 84484; 85007; 85025; 85027; 85610; 87040; 87077; 87086; 87149; 87186; 90471; 90682; 93005; 93010; 93306; 94002; 94003; 94640; 96361; 96365; 96366; 96367; 96368; 96372; 96375; A4216; A4353; C1751; G0008; G8978-GP-CM; G8979-GP-CL; G8996-GN-CH; G8997-GN-CH; J0171; J0282; J0461; J0692; J0694; J1160; J1644; J1650; J1940; J1956; J2185; J2250; J2270; J2405; J2704; J3010; J3370; J3475; J3480; J7050; J7070; J7620; Q2036

== ENCOUNTER 2017-11-24 16:55 | Emergency (ER) | payer MEDICARE, MEDICAID | END 2017-11-24 21:34 | LOC: ERS 16:55 | DX: T82.898A Other specified complication of vascular prosthetic devices, implants and grafts, initial encounter (principal); F32.9 Major depressive disorder, single episode, unspecified; I10 Essential (primary) hypertension | CPT/HCPCS: 99284 ==

== ENCOUNTER 2020-01-03 09:59 | Inpatient (IN) | payer MEDICARE, MEDICAID, OTHER ==
[2020-01-03 10:35] LABS: Base Excess-Venous -2.8 mmol/L (-2.0 to 3.0); Bicarbonate (HCO3v) 21.2 mmol/L (22.0-28.0); CO2 Tension (PvCO2) 34.1 mmHg (40.0-50.0); Calcium, Ionized 1.01 mmol/L (See Comments:); Chloride 113 mmol/L (98-107); Hemoglobin - Calc 14.7 g/dL (12.0-16.0); Potassium 3.1 mmol/L (3.5-5.1); Sodium 151 mmol/L (138-145); T. Carbon Dioxide 22.2 mmol/L (22.0-28.0); vO2 Saturation-calc 64.7 % (60.0-85.0)
[2020-01-03] MEDS ORDERED: Vancomycin 1 GM/200 ML BAG ONE (10:35)
[2020-01-03] MEDS ORDERED: Cefepime 2 GM VIAL ONE (10:35)
[2020-01-03 11:00] LABS: Bacteria/HPF 4+ HPF (None Seen); Bilirubin Negative (Negative); Blood, Urine 2+ (Negative); Clarity Turbid (Clear); Glucose, Urine (Dipstick) Normal (Negative); Leukocyte 500 Leu/uL (Negative); Nitrite Negative (Negative); Protein, Urine (Dipstick) 50 mg/dL (Neg-Trace); RBC/HPF 21-50 HPF (0-3); Squamous Epithelial None Seen HPF (0-3); Transitional Epithelial 0-3 HPF (None Seen); Urobilinogen Normal mg/dL (Less than 2); WBC/HPF Greater than 50 HPF (0-3)
[2020-01-03 11:04] LABS: Hemoglobin 12.6 g/dL (12.0-16.0); Mean Corpuscular HGB CONC 31.9 g/dL (32.0-36.0); Mean Corpuscular Hemoglobin 31.1 pg (27.0-31.0); Mean Corpuscular Volume 97.7 fL (78.0-98.0); Mean Platelet Volume 7.3 fL (7.4-10.4); Platelet Count 214 thou/uL (130-400); RBC Distribution Width 13.1 % (11.5-14.5); Red Blood Cell (RBC) Count 4.05 mill/uL (4.20-5.40); White Blood Cell (WBC) Count 12.8 thou/uL (4.8-10.8)
[2020-01-03 11:18] LABS: ALT (SGPT) 54 U/L (8-55); AST (SGOT) 58 U/L (5-34); Albumin 2.9 g/dL (3.4-4.8); Alkaline Phosphatase 177 U/L (40-110); Anion Gap 12 mmol/L (10-20); BUN (Urea Nitrogen) 24 mg/dL (9.8-20.1); Bilirubin, Total 1.1 mg/dL (0.2-1.2); Calc. Creatinine Clearance 0 mL/min (70-130); Calcium 7.5 mg/dL (7.8-10.44); Carbon Dioxide 21 mmol/L (23-31); Chloride 115 mmol/L (98-107); Estimated GFR-MDRD 38; Globulin 3.3 g/dL (2.4-3.5); Glucose 97 mg/dL (83-110); Lipase 26 U/L (8-78); Potassium 3.1 mmol/L (3.5-5.1); Protein, Total 6.2 g/dL (6.0-8.3); Sodium 145 mmol/L (136-145)
[2020-01-03 11:29] LABS: Band 30 % (5-11); Lymphocytes 3 % (21-51); MDiff Complete? YES; Metamyelocyte 3 % (0-0); Neutrophil 64 % (42-75); Platelet Morphology Comment Appears Adequate; Polychromasia SLIGHT = 2-3 cells (100X) (0-2/hpf); Vacuoles SLIGHT
[2020-01-03 11:35] LABS: CKMB 0.8 ng/mL (0-6.6)
--- NOTE | 2020-01-03 11:35 | RAD ---
Exam:2 views left hip HISTORY: Pain. Fall. COMPARISON: None FINDINGS: Mild bony mineralization. Contour of the femoral head is maintained. No fracture. Visualize d bony pelvis and sacrum are intact. IMPRESSION: No fracture. If the patient is unable to bear weight, consider additional imaging
--- NOTE | 2020-01-03 11:36 | RAD ---
Exam:4 views left knee HISTORY: Fall. Trauma. Pain. Bruising. COMPARISON: None FINDINGS: No joint effusion. There is bony mineralization. No fracture, cortical irregularity or periosteal reaction. There does appear to be lateral soft tissu e swelling. Joint spaces are preserved. Atherosclerosis is noted. IMPRESSION: Soft tissue swelling, without evidence of fracture or joint effusion.
--- NOTE | 2020-01-03 13:59 | RAD ---
CHEST 1 VIEW: HISTORY: Sepsis. COMPARISON: Radiograph 2018. FINDINGS: A catheter projects over the right hemithorax extending over to the left hemiabdomen, although the pa tient is rotated markedly to the left. Heart size appears to be mildly enlarged. No pneumothorax. Chronic layering left effusion. There is a catheter in the right upper quadrant of the abdomen. IMPRESSION: Limited exam due to marked leftward patient rotation. Repeat 2 views of chest recommended. POS: HOME
--- NOTE | 2020-01-03 14:06 | RAD ---
TWO VIEWS RIGHT HIP 01/03/20 COMPARISON: None. HISTORY: Right hip pain. FINDINGS: Two views of the right hip shows no evidence of acute fracture or dislocation. No degenerative change s are seen. Mild overlying soft tissues swelling is seen. IMPRESSION: No evidence of acute osseous abnormality. POS: [facility]
[2020-01-03 14:12] LABS: Lactic Acid 3.2 mmol/L (0.5-2.2)
[2020-01-03 14:19] LABS: Troponin I 0.119 ng/mL (< 0.028)
[2020-01-03 14:51] VITALS: BMI 23.1
[2020-01-03] MEDS ORDERED: Sodium Chloride 0.9% 1,000 ML IV SCH (15:00)
[2020-01-03] MEDS ORDERED: hydrALAZINE 20 MG/ML VIAL SLOW IVP PRN (15:46)
[2020-01-03] MEDS ORDERED: Ondansetron PF 4 MG/2 ML Vial IVP PRN (15:46)
[2020-01-03] MEDS ORDERED: Ondansetron ODT 4 MG TAB PO PRN (15:46)
[2020-01-03] MEDS: Sodium Chloride 0.9% 1,000 ML IV SCH (16:23)
[2020-01-03] MEDS: cefTRIAXone\\ROCEPHIN 2 GM in Sodium Chloride 0.9% 100 ML IVPB SCH (16:23)
[2020-01-03] MEDS: Acetaminophen 500 MG TAB PO PRN ×2 (16:29→22:56)
[2020-01-03 17:10] LABS: Troponin I 0.114 ng/mL (< 0.028)
[2020-01-03 17:46] LABS: SARS-CoV-2 MS2 Positive; SARS-CoV-2 N Gene Negative; SARS-CoV-2 S Gene Negative; SARS-CoV-2 orf1ab Negative
[2020-01-03] MEDS: Polyethylene Glycol 3350 17 GM Packet PO SCH (19:27)
[2020-01-03] MEDS: Mirtazapine 15 MG TAB PO SCH (19:28)
[2020-01-03] MEDS: Atorvastatin Calcium 40 MG TAB PO SCH (19:28)
[2020-01-03] MEDS: Famotidine 20 MG TAB PO SCH (19:28)
[2020-01-03] MEDS: Potassium Chloride 20 MEQ TAB PO SCH (19:29)
[2020-01-03] MEDS: Carvedilol 6.25 MG TAB PO SCH (19:29)
--- NOTE | 2020-01-03 22:51 | HP ---
PRIMARY CARE PROVIDER: Aaron Ricci MD CHIEF COMPLAINT: Altered mental status and fall. HISTORY OF PRESENT ILLNESS: This is an 79-year-old female, who presents to [facility] Emergency Department in transfer from [facility], where patient apparently fell out of her bed. The patient states she had complained of left lower extremity pain and upon evaluation by [facility] staff, was found to be hypoxic at 88% on room air. The patient was also noted febrile. The patient denied any prominent cough, exposure history, and states she has been at [facility] as her primary residence. The patient complained of lower extremity pain with movement in the knee and hip area but denied any dysuria, change to her bowel habits, abdominal pain, or known documented fever. In the emergency room, the patient underwent general evaluation including chest imaging showing no acute infiltrates. Screening radiographs of the knees and hips showed no evidence of acute fracture. The patient received intravenous normal saline in addition to cefepime and vancomycin after concern for urinary tract infection. The patient was also placed on respiratory isolation due to concern for COVID-19 rule out. PAST MEDICAL HISTORY: 1. Hypertension. 2. Myocardial infarction with PCI to LAD, 10/2017. 3. History of torsades de pointes. 4. Dyslipidemia. 5. Hypertension. 6. Chronic right hemiparesis. 7. Neurogenic bladder. 8. Gastroesophageal reflux disease. 9. Depression. 10. Dysphagia. 11. History of GI bleed secondarily to gastric ulcer. PAST SURGICAL HISTORY: 1. Status post PEG tube placement with subsequent removal. 2. Status post appendectomy. 3. Status post cholecystectomy. 4. Status post right frontal andrew hole placement with frontal ventriculostomy. 5. Status post inferior tentorial craniotomy with evacuation of cerebellar hematoma. 6. Status post cardiac catheterization with PCI to LAD. CURRENT MEDICATIONS: 1. Amiodarone 400 mg p.o. daily. 2. Aspirin 81 mg p.o. daily. 3. Lipitor 20 mg p.o. at bedtime. 4. Cranberry extract one capsule p.o. daily. 5. Lisinopril 10 mg p.o. daily. 6. Mirtazapine 15 mg p.o. at bedtime. 7. Protonix 40 mg p.o. daily. 8. Polyethylene glycol 17 g p.o. b.i.d. 9. Potassium chloride 20 mEq p.o. b.i.d. 10. Carvedilol 3.125 mg p.o. b.i.d. 11. Plavix 75 mg p.o. daily. 12. Lasix 40 mg p.o. daily. ALLERGIES: NO KNOWN DRUG ALLERGIES. FAMILY HISTORY: Sister with coronary artery disease and breast cancer. Multiple brothers with coronary artery disease. SOCIAL HISTORY: . Resides in [facility] over the last 10 to 12 years. No alcohol, tobacco, or illicit drug use. Ambulates with a wheelchair. REVIEW OF SYSTEMS: CONSTITUTIONAL: Negative for weight loss or gain, ability to conduct usual activities. SKIN: Negative for rash, itching. EYES: Negative for double vision, pain. ENT/MOUTH: Negative for nose bleeding, neck stiffness, pain, tenderness. CARDIOVASCULAR: Negative for palpitations, dyspnea on exertion, orthopnea. RESPIRATORY: Negative for shortness of breath, wheezing, cough, hemoptysis, fever or night sweats. GASTROINTESTINAL: Negative for poor appetite, abdominal pain, heartburn, nausea, vomiting, constipation, or diarrhea. GENITOURINARY: Negative for urgency, frequency, dysuria, nocturia. MUSCULOSKELETAL: Negative for pain, swelling. NEUROLOGIC/PSYCHIATRIC: Negative for anxiety, depression. ALLERGY/IMMUNOLOGIC: Negative for skin rash, bleeding tendency. Otherwise negative except as stated per HPI. PHYSICAL EXAMINATION: VITAL SIGNS: On admission, blood pressure 137/80, pulse 83, respiratory rate 12, temperature 99.3 degrees Fahrenheit, O2 saturation 97% on 3 L per minute by nasal cannula. GENERAL APPEARANCE: This is an 79-year-old female, alert and oriented x2, pleasant, responsive, in no acute distress. HEENT: Pupils are equal, round, reactive to light and accommodation. Extraocular muscles are intact. No scleral icterus. No conjunctival injection. Nares patent. OP is clear. Oral mucosa dry. NECK: Supple. No cervical adenopathy. No thyromegaly. No carotid bruits. No JVD appreciated. Cervical spine with full active and passive range of motion. No meningeal signs noted. CHEST: Lungs are clear to auscultation bilaterally. CARDIOVASCULAR EXAM: S1, S2 without noted murmur, rub, or gallop. ABDOMEN: Rounded, soft, nontender, and nondistended. Bowel sounds are positive in all 4 quadrants. There is no hepatosplenomegaly. No abdominal bruits. No rebound or guarding appreciated. EXTREMITIES: Warm and dry with fair turgor. No clubbing, cyanosis, or asymmetric edema appreciated. Pulses palpable distally at the dorsalis pedis, posterior tibial, and popliteal arteries bilaterally. Capillary refill less than 2 seconds. NEUROLOGIC: Cranial nerves 2 through 12 are grossly intact. Right-sided weakness, chronic. Speech appropriate. Alert and oriented x2 to x3. Not observed ambulatory during this exam. PERTINENT LABORATORY AND X-RAY FINDINGS: Sodium 145, potassium 3.1, chloride 115, CO2 of 21, BUN 24, creatinine 1.34, estimated GFR 38. Lactic acid level ranged between 3.2 to 3.4, calcium 7.5, AST 58, ALT of 54, alkaline phosphatase 177. Troponin I ranged between 0.084 to 0.119. Albumin 2.9. Lipase 26. CBC showed a white blood cell count of 12.8, hemoglobin 12.6, hematocrit 39.6, platelet count 214 with 64% neutrophils, and 30% bands. Urinalysis dated 01/03/2020 showed a turbid sample with specific gravity of 1.010, pH of 7.0, positive protein, blood with leukocyte esterase positive with 21-50 rbc's per high-power field and greater than 50 wbc's per high-power field. 4+ bacteria. Four views of the left knee dated 01/03/2020, showed no fracture or dislocation. Portable chest x-ray dated 01/03/2020, showed limited exam due to leftward rotation. Chronic layering left effusion. Two views of the right hip dated 01/03/2020, showed no acute process. EKG dated 01/03/2020 by my interpretation shows sinus mechanism with first-degree AV block. Attenuated R-waves noted in the precordial leads. Left bundle-branch block pattern noted. Left axis deviation. ASSESSMENT AND PLAN: 1. Sepsis with acute metabolic encephalopathy. The patient will be admitted to the medical floor. Suspect urinary tract infection source. We will continue Rocephin 2 g IV q.24 hours. Await final urine culture results. Continue IV fluids with normal saline at 75 mL/h. 2. Urinary tract infection. See #1 above. Continue IV fluids and Rocephin 2 g IV daily. 3. Acute on chronic kidney disease. Avoid nephrotoxic agents. Limit contrast exposure. Continue IV fluids as outlined previously. Repeat creatinine in the a.m. 4. Hypokalemia. Potassium chloride supplementation with repeat potassium level in the a.m. 5. Mechanical fall. PT evaluation in the a.m. General fall risk precautions. No evidence of acute fracture by current radiographic imaging. 6. Prophylaxis. SCDs while in bed. Pepcid 20 mg p.o. b.i.d. PT evaluation in the a.m. 7. Code status is full. Surrogate medical decision maker is the patient's spouse. Job ID: [id number]
[2020-01-04] MEDS: Sodium Chloride 0.9% 1,000 ML IV SCH ×2 (02:11→05:27)
[2020-01-04] MEDS: traMADol HCl 50 MG TAB PO PRN ×3 (02:31→14:23)
[2020-01-04] MEDS: Acetaminophen 500 MG TAB PO PRN (05:27)
[2020-01-04 06:56] LABS: Anion Gap 12 mmol/L (10-20); BUN (Urea Nitrogen) 27 mg/dL (9.8-20.1); Calc. Creatinine Clearance 35 mL/min (70-130); Calcium 7.9 mg/dL (7.8-10.44); Carbon Dioxide 19 mmol/L (23-31); Chloride 120 mmol/L (98-107); Estimated GFR-MDRD 37; Glucose 86 mg/dL (83-110); Potassium 3.3 mmol/L (3.5-5.1); Sodium 148 mmol/L (136-145)
[2020-01-04 07:54] LABS: Band 12 % (5-11); Hemoglobin 10.2 g/dL (12.0-16.0); Lymphocytes 5 % (21-51); MDiff Complete? YES; Macrocytosis SLIGHT = 6-15 cells (100X) (0-5/hpf); Mean Corpuscular HGB CONC 32.2 g/dL (32.0-36.0); Mean Corpuscular Hemoglobin 31.7 pg (27.0-31.0); Mean Corpuscular Volume 98.2 fL (78.0-98.0); Monocytes 3 % (0-10); Neutrophil 79 % (42-75); Platelet Count 169 thou/uL (130-400); Platelet Morphology Comment Appears Adequate; RBC Distribution Width 13.3 % (11.5-14.5); Red Blood Cell (RBC) Count 3.22 mill/uL (4.20-5.40); White Blood Cell (WBC) Count 22.3 thou/uL (4.8-10.8)
[2020-01-04] MEDS: Famotidine 20 MG TAB PO SCH ×2 (08:29→21:09)
[2020-01-04] MEDS: Amiodarone 200 MG TAB PO SCH (08:29)
[2020-01-04] MEDS: Aspirin Chewable 81 MG TAB PO SCH (08:30)
[2020-01-04] MEDS: Clopidogrel Bisulfate 75 MG TAB PO SCH (08:33)
[2020-01-04] MEDS: Potassium Chloride 20 MEQ TAB PO SCH ×2 (08:33→21:10)
[2020-01-04] MEDS: Furosemide 40 MG TAB PO SCH (08:33)
[2020-01-04] MEDS: Carvedilol 6.25 MG TAB PO SCH ×2 (08:34→21:08)
[2020-01-04] MEDS: Polyethylene Glycol 3350 17 GM Packet PO SCH ×2 (08:35→21:09)
--- NOTE | 2020-01-04 12:08 | PDOC.HOSPP ---
- Subjective Encounter Date: 01/04/20 Encounter Time: 12:05 Subjective: f/u for sepsis due to UTI with Klebsiella spp on current Rocephin. States feeling better overall but still weak. - Objective Vital Signs & Weight: Vital Signs (12 hours) Temp Pulse Resp BP BP BP Pulse Ox 01/04/20 09:00 96 01/04/20 08:34 135/71 01/04/20 08:04 97.8 F 68 15 135/71 89 L 01/04/20 08:00 96 01/04/20 04:00 98.9 F 72 18 111/62 94 L 01/04/20 01:45 99.1 F 71 18 109/59 L 95 Weight Weight 147 lb 11.355 oz Result Diagrams: 01/04/20 06:05 01/04/20 06:05 Additional Labs: Microbiology 01/03/20 10:34 Venous blood - Left Hand Blood Culture - Preliminary Gram Negative Kyle 01/03/20 10:23 Venous blood - Right Arm Blood Culture - Preliminary Klebsiella pneumoniae Laboratory Tests 10/17/17 10/17/17 10/17/17 04:25 07:05 10:34 WBC Hgb Neutrophils % (Manual) Band Neuts % (Manual) Sodium Potassium Creatinine Lactic Acid Troponin I 0.099 H 0.412 H* 0.542 H* COVID-19 PCR 01/03/20 01/03/20 01/03/20 10:34 10:34 10:34 WBC 12.8 H Hgb 12.6 Neutrophils % (Manual) 64 Band Neuts % (Manual) 30 H Sodium 145 Potassium 3.1 L Creatinine 1.34 H Lactic Acid Troponin I 0.084 H COVID-19 PCR 01/03/20 01/03/20 01/03/20 10:34 10:50 13:37 WBC Hgb Neutrophils % (Manual) Band Neuts % (Manual) Sodium Potassium Creatinine Lactic Acid 3.4 H Troponin I 0.119 H COVID-19 PCR Not Detected 01/03/20 01/03/20 01/04/20 13:37 15:56 06:05 WBC Hgb Neutrophils % (Manual) 79 H Band Neuts % (Manual) 12 H Sodium Potassium Creatinine Lactic Acid 3.2 H Troponin I 0.114 H COVID-19 PCR Hospitalist ROS - Medication Medications: Active Medications Generic Name Dose Route Start Last Admin Trade Name Freq PRN Reason Stop Dose Admin Acetaminophen 1,000 mg 01/03/20 15:46 01/04/20 05:27 Tylenol PO 1,000 mg Q6H PRN Administration Mild Pain (1-3) Amiodarone HCl 400 mg 01/04/20 09:00 01/04/20 08:29 Cordarone PO 400 mg DAILY RENA Administration Aspirin 81 mg 01/04/20 09:00 01/04/20 08:30 Aspirin Chewable PO 81 mg DAILY RENA Administration Atorvastatin Calcium 20 mg 01/03/20 21:00 01/03/20 19:28 Lipitor PO 20 mg HS RENA Administration Carvedilol 3.125 mg 01/03/20 21:00 01/04/20 08:34 Coreg PO 3.125 mg BID RENA Administration Clopidogrel Bisulfate 75 mg 01/04/20 09:00 01/04/20 08:33 Plavix PO 75 mg DAILY RENA Administration Famotidine 20 mg 01/03/20 21:00 01/04/20 08:29 Pepcid PO 20 mg BID RENA Administration Furosemide 40 mg 01/04/20 07:30 01/04/20 08:33 Lasix PO 40 mg DAILY-AC RENA Administration Ceftriaxone Sodium 2 gm/ 100 mls @ 200 mls/hr 01/03/20 16:00 01/03/20 16:23 Sodium Chloride IVPB 100 mls 1600 RENA Administration Mirtazapine 15 mg 01/03/20 21:00 01/03/20 19:28 Remeron PO 15 mg HS RENA Administration Pantoprazole Sodium 40 mg 01/04/20 09:00 01/04/20 08:33 Protonix PO 40 mg DAILY RENA Administration Polyethylene Glycol 17 gm 01/03/20 21:00 01/04/20 08:35 Miralax PO 17 gm BID RENA Administration Potassium Chloride 20 meq 01/03/20 21:00 01/04/20 08:33 K-Dur PO 20 meq BID RENA Administration Tramadol HCl 50 mg 01/04/20 02:23 01/04/20 08:30 Ultram PO 50 mg Q4H PRN Administration Moderate Pain (4-6) - Exam General Appearance: NAD, awake alert Eye: PERRL, anicteric sclera ENT: normocephalic atraumatic, no oropharyngeal lesions Neck: supple, symmetric, no JVD, no thyromegaly Heart: RRR, no murmur, no gallops, no rubs, normal peripheral pulses Heart - other findings: S1, S2 Respiratory: CTAB, no wheezes, no rales, no ronchi, normal chest expansion Gastrointestinal: soft, non-tender, non-distended, normal bowel sounds Extremities: no cyanosis, no clubbing, no edema Skin: normal turgor, no lesions Neurological: cranial nerve grossly intact, no new deficit Neurological - other findings: R hemiparesis(chronic) Psychiatric: oriented to person, oriented to place Hosp A/P (1) Sepsis with metabolic encephalopathy Code(s): A41.9 - SEPSIS, UNSPECIFIED ORGANISM; R65.20 - SEVERE SEPSIS WITHOUT SEPTIC SHOCK; G93.41 - METABOLIC ENCEPHALOPATHY Status: Acute Plan: Continue Rocephin, add Meropenem today, continue IVF's (2) UTI due to Klebsiella species Code(s): N39.0 - URINARY TRACT INFECTION, SITE NOT SPECIFIED; B96.89 - OTH BACTERIAL AGENTS THE CAUSE OF DISEASES CLASSD ELSWHR Status: Acute Plan: Klebsiella spp appears resistant to Rocephin, add Meropenem today (3) Acute kidney injury superimposed on CKD Code(s): N17.9 - ACUTE KIDNEY FAILURE, UNSPECIFIED; N18.9 - CHRONIC KIDNEY DISEASE, UNSPECIFIED Status: Acute Plan: Continue IVF's, avoid nephrotoxic meds and limit contrast exposure (4) Hypokalemia Code(s): E87.6 - HYPOKALEMIA Status: Acute Plan: KCL supplementation, serial K+ monitoring - Plan continue antibiotics, PT/OT, social media marketer, DVT proph w/SCDs Continue supportive mgmt Change IVF to D51/2NS @ 100ml/h Add Meropenem 2gm IV q8h Continue Rocephin KCL supplementation AM lab: CMP, CBC
[2020-01-04] MEDS ORDERED: Meropenem 2 GM in Admixture Fee 1 EACH IVPB SCH (12:30)
[2020-01-04] MEDS: Dextrose 5 %-0.45 % NaCl 1,000 ML IV SCH ×2 (12:54→22:24)
[2020-01-04] MEDS: Meropenem 2 GM, Admixture Fee 1 EACH in Sodium Chloride 0.9% 100 ML IVPB SCH ×2 (14:25→21:10)
[2020-01-04] MEDS: cefTRIAXone\\ROCEPHIN 2 GM in Sodium Chloride 0.9% 100 ML IVPB SCH (16:34)
[2020-01-04] MEDS: Atorvastatin Calcium 40 MG TAB PO SCH (21:07)
[2020-01-04] MEDS: Mirtazapine 15 MG TAB PO SCH (21:09)
[2020-01-05] MEDS: Meropenem 2 GM, Admixture Fee 1 EACH in Sodium Chloride 0.9% 100 ML IVPB SCH ×3 (05:34→22:27)
[2020-01-05] MEDS: Dextrose 5 %-0.45 % NaCl 1,000 ML IV SCH ×3 (05:34→19:10)
[2020-01-05 06:11] LABS: Band 8 % (5-11); Eosinophils 1 % (0-10); Hemoglobin 10.5 g/dL (12.0-16.0); Lymphocytes 14 % (21-51); MDiff Complete? YES; Mean Corpuscular HGB CONC 29.5 g/dL (32.0-36.0); Mean Corpuscular Hemoglobin 29.5 pg (27.0-31.0); Mean Platelet Volume 8.7 fL (7.4-10.4); Monocytes 2 % (0-10); Neutrophil 75 % (42-75); Platelet Count 144 thou/uL (130-400); RBC Distribution Width 13.2 % (11.5-14.5); Red Blood Cell (RBC) Count 3.55 mill/uL (4.20-5.40); White Blood Cell (WBC) Count 15.8 thou/uL (4.8-10.8)
[2020-01-05 06:12] LABS: ALT (SGPT) 217 U/L (8-55); AST (SGOT) 173 U/L (5-34); Albumin 2.7 g/dL (3.4-4.8); Alkaline Phosphatase 114 U/L (40-110); Anion Gap 10 mmol/L (10-20); BUN (Urea Nitrogen) 22 mg/dL (9.8-20.1); Bilirubin, Total 0.4 mg/dL (0.2-1.2); Calc. Creatinine Clearance 42 mL/min (70-130); Carbon Dioxide 19 mmol/L (23-31); Chloride 121 mmol/L (98-107); Estimated GFR-MDRD 47; Globulin 3.1 g/dL (2.4-3.5); Glucose 92 mg/dL (83-110); Potassium 3.5 mmol/L (3.5-5.1); Protein, Total 5.8 g/dL (6.0-8.3); Sodium 146 mmol/L (136-145)
[2020-01-05] MEDS: Famotidine 20 MG TAB PO SCH (08:13)
[2020-01-05] MEDS: Amiodarone 200 MG TAB PO SCH (08:13)
[2020-01-05] MEDS: Aspirin Chewable 81 MG TAB PO SCH (08:13)
[2020-01-05] MEDS: Carvedilol 6.25 MG TAB PO SCH ×2 (08:14→22:18)
[2020-01-05] MEDS: Clopidogrel Bisulfate 75 MG TAB PO SCH (08:14)
[2020-01-05] MEDS: Polyethylene Glycol 3350 17 GM Packet PO SCH ×2 (08:14→22:21)
[2020-01-05] MEDS: Potassium Chloride 20 MEQ TAB PO SCH ×2 (08:14→22:21)
--- NOTE | 2020-01-05 10:53 | PDOC.HOSPP ---
- Subjective Encounter Date: 01/05/20 Encounter Time: 10:50 Subjective: f/u sepsis secondary to UTI with Klebsiella spp on current Meropenem. Feels better overall and no fever noted. - Objective Vital Signs & Weight: Vital Signs (12 hours) Temp Pulse Resp BP BP Pulse Ox 01/05/20 08:14 159/80 H 01/05/20 07:53 98.3 F 75 17 159/80 H 94 L 01/05/20 07:32 94 L Weight Admit Weight 147 lb 11.2 oz Weight 147 lb 11.355 oz I&O: 01/04/20 01/05/20 01/06/20 06:59 06:59 06:59 Intake Total 1460 Balance 1460 Result Diagrams: 01/05/20 05:40 01/05/20 05:40 Additional Labs: Microbiology 01/03/20 10:34 Venous blood - Left Hand Blood Culture - Final Klebsiella pneumoniae ssp pneu 01/03/20 10:23 Venous blood - Right Arm Blood Culture - Final Klebsiella pneumoniae ssp pneu 01/03/20 10:34 Venous blood - Left Hand Blood Culture - Preliminary Gram Negative Kyle 01/03/20 10:23 Venous blood - Right Arm Blood Culture - Preliminary Klebsiella pneumoniae Laboratory Tests 10/17/17 10/17/17 10/17/17 04:25 07:05 10:34 WBC Hgb Neutrophils % (Manual) Band Neuts % (Manual) Sodium Potassium Creatinine Lactic Acid Troponin I 0.099 H 0.412 H* 0.542 H* COVID-19 PCR 01/03/20 01/03/20 01/03/20 10:34 10:34 10:34 WBC 12.8 H Hgb 12.6 Neutrophils % (Manual) 64 Band Neuts % (Manual) 30 H Sodium 145 Potassium 3.1 L Creatinine 1.34 H Lactic Acid Troponin I 0.084 H COVID-19 PCR 01/03/20 01/03/20 01/03/20 10:34 10:50 13:37 WBC Hgb Neutrophils % (Manual) Band Neuts % (Manual) Sodium Potassium Creatinine Lactic Acid 3.4 H Troponin I 0.119 H COVID-19 PCR Not Detected 01/03/20 01/03/20 01/04/20 13:37 15:56 06:05 WBC Hgb Neutrophils % (Manual) 79 H Band Neuts % (Manual) 12 H Sodium Potassium Creatinine Lactic Acid 3.2 H Troponin I 0.114 H COVID-19 PCR Hospitalist ROS - Medication Medications: Active Medications Generic Name Dose Route Start Last Admin Trade Name Freq PRN Reason Stop Dose Admin Acetaminophen 1,000 mg 01/03/20 15:46 01/04/20 05:27 Tylenol PO 1,000 mg Q6H PRN Administration Mild Pain (1-3) Amiodarone HCl 400 mg 01/04/20 09:00 01/05/20 08:13 Cordarone PO 400 mg DAILY RENA Administration Aspirin 81 mg 01/04/20 09:00 01/05/20 08:13 Aspirin Chewable PO 81 mg DAILY RENA Administration Atorvastatin Calcium 20 mg 01/03/20 21:00 01/04/20 21:07 Lipitor PO 20 mg HS RENA Administration Carvedilol 3.125 mg 01/03/20 21:00 01/05/20 08:14 Coreg PO 3.125 mg BID RENA Administration Clopidogrel Bisulfate 75 mg 01/04/20 09:00 01/05/20 08:14 Plavix PO 75 mg DAILY RENA Administration Famotidine 20 mg 01/03/20 21:00 01/05/20 08:13 Pepcid PO 20 mg BID RENA Administration Furosemide 40 mg 01/04/20 07:30 01/04/20 08:33 Lasix PO 40 mg DAILY-AC RENA Administration Ceftriaxone Sodium 2 gm/ 100 mls @ 200 mls/hr 01/03/20 16:00 01/04/20 16:34 Sodium Chloride IVPB 100 mls 1600 RENA Administration Dextrose/Sodium Chloride 1,000 mls @ 100 mls/hr 01/04/20 12:15 01/05/20 05:34 D5 1/2 Ns IV 1,000 mls .Q10H RENA Administration Meropenem 2 gm/ Miscellaneous 100 mls @ 100 mls/hr 01/04/20 14:00 01/05/20 05 :34 Medication 1 each/ Sodium IVPB 100 mls Chloride Q8HR RENA Administration Mirtazapine 15 mg 01/03/20 21:00 01/04/20 21:09 Remeron PO 15 mg HS RENA Administration Pantoprazole Sodium 40 mg 01/04/20 09:00 01/05/20 08:13 Protonix PO 40 mg DAILY RENA Administration Polyethylene Glycol 17 gm 01/03/20 21:00 01/05/20 08:14 Miralax PO Not Given BID RENA Potassium Chloride 20 meq 01/03/20 21:00 01/05/20 08:14 K-Dur PO 20 meq BID RENA Administration Sodium Chloride 10 ml 01/04/20 21:00 01/05/20 08:15 Flush - Normal Saline IVF Not Given Q12HR RENA Tramadol HCl 50 mg 01/04/20 02:23 01/04/20 14:23 Ultram PO 50 mg Q4H PRN Administration Moderate Pain (4-6) - Exam General Appearance: NAD, awake alert Eye: PERRL, anicteric sclera ENT: normocephalic atraumatic, no oropharyngeal lesions Neck: supple, symmetric, no JVD, no thyromegaly Heart: RRR, no murmur, no gallops, no rubs, normal peripheral pulses Heart - other findings: S1, S2 Respiratory: CTAB, no wheezes, no rales, no ronchi, normal chest expansion Gastrointestinal: soft, non-tender, non-distended, normal bowel sounds, no palpable masses Extremities: no cyanosis, no clubbing, no edema Skin: normal turgor Neurological: cranial nerve grossly intact, no new deficit Neurological - other findings: chronic R hemiparesis Musculoskeletal: normal tone, generalized weakness Hosp A/P (1) Sepsis with metabolic encephalopathy Code(s): A41.9 - SEPSIS, UNSPECIFIED ORGANISM; R65.20 - SEVERE SEPSIS WITHOUT SEPTIC SHOCK; G93.41 - METABOLIC ENCEPHALOPATHY Status: Acute Plan: Improved, Klebsiella spp isolated on blood cx x 2, continue Meropenem another 24 -48h (2) UTI due to Klebsiella species Code(s): N39.0 - URINARY TRACT INFECTION, SITE NOT SPECIFIED; B96.89 - OTH BACTERIAL AGENTS THE CAUSE OF DISEASES CLASSD ELSWHR Status: Acute Plan: See above #1 (3) Acute kidney injury superimposed on CKD Code(s): N17.9 - ACUTE KIDNEY FAILURE, UNSPECIFIED; N18.9 - CHRONIC KIDNEY DISEASE, UNSPECIFIED Status: Acute Plan: Improving, continue IVF's, avoid nephrotoxic meds and limit contrast (4) Hypokalemia Code(s): E87.6 - HYPOKALEMIA Status: Acute Plan: Improved, KCL supplementation (5) Transaminitis Code(s): R74.0 - NONSPEC ELEV OF LEVELS OF TRANSAMNS & LACTIC ACID DEHYDRGNSE Status: Acute Plan: Suspect due to sepsis, continue supportive mgmt, serial LFT's - Plan continue antibiotics, PT/OT, dialysis social worker, DVT proph w/SCDs Continue supportive mgmt Change IVF to D51/2NS @ 75ml/h Continue Meropenem 2gm IV q8h D/C Rocephin KCL supplementation AM lab: CMP, CBC
--- NOTE | 2020-01-05 17:10 | PQF ---
VICKY LOPEZCAMILLA DO [id number] [facility]-[id number] CLINICAL DOCUMENTATION IMPROVEMENT CLARIFICATION FORM: ICD-10 Updated PLEASE DO AN ADDENDUM TO THE PROGRESS NOTE WITH ANY DOCUMENTATION UPDATES OR ADDITIONS AND CARRY THROUGH TO DC SUMMARY. THANK YOU. DATE: 01/05/2020 ATTN: DR. Akanksha CARMICHAEL Please exercise your independent, professional judgment in responding to the clarification form. Clinical indicators are provided on the bottom of this form for your review. Please check appropriate box(s): [ ] Acute Respiratory Failure: [ ] with Hypoxia[ ] with Hypercapnia [ ] Acute On Chronic Respiratory Failure: [ ] with Hypoxia [ ] with Hypercapnia [ ] Acute Respiratory Failure due to: (etiology) [ ] Chronic Respiratory Failure only [ ] with Hypoxia [ ] with Hypercapnia [ ] Hypoxia [ x ] Other diagnosis _Sepsis [ ] Unable to determine In addition, please specify: Present on Admission (POA): [ ] Yes [ x ] No [ ] Unable to determine For continuity of documentation, please document condition throughout progress notes and discharge summary. Thank You. CLINICAL INDICATORS - SIGNS / SYMPTOMS / LABS / RESULTS AND LOCATION IN MR 01/02 ED REPORT : O2 SATURATION 88% RA > 97% 3L/NC > 99% 4L/NC// PATIENT PRESENTS FOR EVALUATION OF HYPOXIA, FALL, FEVER, LEFT LEG PAIN. SHE WAS FOUND DOWN, HYPOXIC FOR EMS WITH SATS IN THE 80'S. SHE DOES NOT WEAR OXYGEN. SHE HAS HAD SOME MINIMALLY PRODUCTIVE COUGH. 01/02 H&P ( JANY) THE PATIENT APPARENTLY FELL OUT OF THE BED, UPON EVALUATION OF THE CORRECTION STAFF, WAS FOUND TO BE HYPOXIC AT 88% ON ROOM AIR. 01/03 89% 2L/NC RISK: ADVANCED AGE (79) SEPSIS, (H&P/JANY) 01/01 TREATMENT SUPPLEMENTAL OXYGEN ( 01/02 - PRESENT) CONTINUOUS O2 MONITORING (01/02- PRESENT) Acute Respiratory Failure: ABG pH < 7.35 or > 7.45; Decreased oxygen saturation (<90% room air or < 95% on oxygen); PCO2 > 50 mm Hg; PO2 < 60 mm Hg; Labored or rapid respirations ARDS: Dx Criteria [[place] ARDS]: Respiratory symptoms within one week of a known clinical insult (e.g. shock, infection, surgery, trauma) Bilateral opacities in CXR/Chest CT not due to CHF or fluid THANK YOU! FABIENNE (This form is maintained as a part of the permanent medical record) 2014 [employer], [employer]. All Rights Reserved [email or web address]
[2020-01-05] MEDS: Atorvastatin Calcium 40 MG TAB PO SCH (22:18)
[2020-01-05] MEDS: Mirtazapine 15 MG TAB PO SCH (22:21)
[2020-01-06 06:01] LABS: Band 3 % (5-11); Eosinophils 2 % (0-10); Hemoglobin 10.2 g/dL (12.0-16.0); Lymphocytes 15 % (21-51); MDiff Complete? YES; Mean Corpuscular HGB CONC 30.2 g/dL (32.0-36.0); Mean Corpuscular Hemoglobin 30.3 pg (27.0-31.0); Mean Platelet Volume 9.1 fL (7.4-10.4); Monocytes 4 % (0-10); Neutrophil 76 % (42-75); Platelet Count 166 thou/uL (130-400); Platelet Morphology Comment Appears Adequate; RBC Distribution Width 13.4 % (11.5-14.5); Red Blood Cell (RBC) Count 3.37 mill/uL (4.20-5.40)
[2020-01-06 06:05] LABS: ALT (SGPT) 138 U/L (8-55); AST (SGOT) 62 U/L (5-34); Albumin 2.5 g/dL (3.4-4.8); Alkaline Phosphatase 113 U/L (40-110); Anion Gap 10 mmol/L (10-20); BUN (Urea Nitrogen) 18 mg/dL (9.8-20.1); Bilirubin, Total 0.6 mg/dL (0.2-1.2); Calc. Creatinine Clearance 50 mL/min (70-130); Calcium 7.5 mg/dL (7.8-10.44); Carbon Dioxide 18 mmol/L (23-31); Chloride 122 mmol/L (98-107); Estimated GFR-MDRD 57; Globulin 3.1 g/dL (2.4-3.5); Glucose 110 mg/dL (83-110); Potassium 3.6 mmol/L (3.5-5.1); Protein, Total 5.6 g/dL (6.0-8.3); Sodium 146 mmol/L (136-145)
[2020-01-06] MEDS: Meropenem 2 GM, Admixture Fee 1 EACH in Sodium Chloride 0.9% 100 ML IVPB SCH ×2 (06:14→14:55)
[2020-01-06] MEDS: Clopidogrel Bisulfate 75 MG TAB PO SCH (07:59)
[2020-01-06] MEDS: Carvedilol 6.25 MG TAB PO SCH ×2 (07:59→22:32)
[2020-01-06] MEDS: Famotidine 20 MG TAB PO SCH (07:59)
[2020-01-06] MEDS: Amiodarone 200 MG TAB PO SCH (08:00)
[2020-01-06] MEDS: Aspirin Chewable 81 MG TAB PO SCH (08:00)
[2020-01-06] MEDS: Polyethylene Glycol 3350 17 GM Packet PO SCH ×2 (08:00→22:32)
[2020-01-06] MEDS: Potassium Chloride 20 MEQ TAB PO SCH ×2 (08:00→22:31)
--- NOTE | 2020-01-06 09:05 | PDOC.HOSPP ---
- Subjective Encounter Date: 01/06/20 Encounter Time: 09:00 Subjective: f/u for sepsis due to UTI with Klebsiella spp on Meropenem. Pt states she is feeling better overall. No fever or SOB. - Objective Vital Signs & Weight: Vital Signs (12 hours) Temp Pulse Resp BP BP Pulse Ox 01/06/20 08:23 95 01/06/20 07:59 113/70 01/06/20 07:24 98.6 F 75 20 113/70 92 L 01/05/20 22:18 159/80 H Weight Admit Weight 147 lb 11.2 oz Weight 147 lb 11.355 oz I&O: 01/05/20 01/06/20 01/07/20 06:59 06:59 06:59 Intake Total 1460 Balance 1460 Result Diagrams: 01/06/20 05:28 01/06/20 05:28 Additional Labs: Microbiology 01/03/20 10:34 Venous blood - Left Hand Blood Culture - Final Klebsiella pneumoniae ssp pneu 01/03/20 10:23 Venous blood - Right Arm Blood Culture - Final Klebsiella pneumoniae ssp pneu 01/03/20 10:34 Venous blood - Left Hand Blood Culture - Preliminary Gram Negative Kyle 01/03/20 10:23 Venous blood - Right Arm Blood Culture - Preliminary Klebsiella pneumoniae Laboratory Tests 10/17/17 10/17/17 10/17/17 04:25 07:05 10:34 WBC Hgb Neutrophils % (Manual) Band Neuts % (Manual) Sodium Potassium Creatinine Lactic Acid Troponin I 0.099 H 0.412 H* 0.542 H* COVID-19 PCR 01/03/20 01/03/20 01/03/20 10:34 10:34 10:34 WBC 12.8 H Hgb 12.6 Neutrophils % (Manual) 64 Band Neuts % (Manual) 30 H Sodium 145 Potassium 3.1 L Creatinine 1.34 H Lactic Acid Troponin I 0.084 H COVID-19 PCR 01/03/20 01/03/20 01/03/20 10:34 10:50 13:37 WBC Hgb Neutrophils % (Manual) Band Neuts % (Manual) Sodium Potassium Creatinine Lactic Acid 3.4 H Troponin I 0.119 H COVID-19 PCR Not Detected 01/03/20 01/03/20 01/04/20 13:37 15:56 06:05 WBC Hgb Neutrophils % (Manual) 79 H Band Neuts % (Manual) 12 H Sodium Potassium Creatinine Lactic Acid 3.2 H Troponin I 0.114 H COVID-19 PCR Hospitalist ROS - Medication Medications: Active Medications Generic Name Dose Route Start Last Admin Trade Name Freq PRN Reason Stop Dose Admin Acetaminophen 1,000 mg 01/03/20 15:46 01/04/20 05:27 Tylenol PO 1,000 mg Q6H PRN Administration Mild Pain (1-3) Amiodarone HCl 400 mg 01/04/20 09:00 01/06/20 08:00 Cordarone PO 400 mg DAILY RENA Administration Aspirin 81 mg 01/04/20 09:00 01/06/20 08:00 Aspirin Chewable PO 81 mg DAILY RENA Administration Atorvastatin Calcium 20 mg 01/03/20 21:00 01/05/20 22:18 Lipitor PO 20 mg HS RENA Administration Carvedilol 3.125 mg 01/03/20 21:00 01/06/20 07:59 Coreg PO 3.125 mg BID RENA Administration Clopidogrel Bisulfate 75 mg 01/04/20 09:00 01/06/20 07:59 Plavix PO 75 mg DAILY RENA Administration Famotidine 20 mg 01/06/20 09:00 01/06/20 07:59 Pepcid PO 20 mg DAILY RENA Administration Furosemide 40 mg 01/04/20 07:30 01/04/20 08:33 Lasix PO 40 mg DAILY-AC RENA Administration Meropenem 2 gm/ Miscellaneous 100 mls @ 100 mls/hr 01/04/20 14:00 01/06/20 06 :14 Medication 1 each/ Sodium IVPB 100 mls Chloride Q8HR RENA Administration Dextrose/Sodium Chloride 1,000 mls @ 75 mls/hr 01/05/20 11:04 01/05/20 19:10 D5 1/2 Ns IV 1,000 mls .[id number] RENA Administration Mirtazapine 15 mg 01/03/20 21:00 01/05/20 22:21 Remeron PO 15 mg HS RENA Administration Pantoprazole Sodium 40 mg 01/04/20 09:00 01/06/20 08:00 Protonix PO 40 mg DAILY RENA Administration Polyethylene Glycol 17 gm 01/03/20 21:00 01/06/20 08:00 Miralax PO 17 gm BID RENA Administration Potassium Chloride 20 meq 01/03/20 21:00 01/06/20 08:00 K-Dur PO 20 meq BID RENA Administration Sodium Chloride 10 ml 01/04/20 21:00 01/06/20 08:01 Flush - Normal Saline IVF Not Given Q12HR RENA Tramadol HCl 50 mg 01/04/20 02:23 01/04/20 14:23 Ultram PO 50 mg Q4H PRN Administration Moderate Pain (4-6) - Exam General Appearance: NAD, awake alert Eye: PERRL, anicteric sclera ENT: normocephalic atraumatic, no oropharyngeal lesions Neck: supple, symmetric, no JVD, no thyromegaly Heart: RRR, no murmur, no gallops, no rubs, normal peripheral pulses Heart - other findings: S1, S2 Respiratory: CTAB, no wheezes, no rales, no ronchi, normal chest expansion Gastrointestinal: soft, non-tender, non-distended, normal bowel sounds, no palpable masses Extremities: no cyanosis, no clubbing Skin: normal turgor Neurological: cranial nerve grossly intact, no new deficit Neurological - other findings: chronic R hemiparesis Musculoskeletal: normal tone, generalized weakness Psychiatric: normal affect, A&O x 3 Hosp A/P (1) Sepsis with metabolic encephalopathy Code(s): A41.9 - SEPSIS, UNSPECIFIED ORGANISM; R65.20 - SEVERE SEPSIS WITHOUT SEPTIC SHOCK; G93.41 - METABOLIC ENCEPHALOPATHY Status: Acute Plan: Resolving, continue Meropenem IV (2) UTI due to Klebsiella species Code(s): N39.0 - URINARY TRACT INFECTION, SITE NOT SPECIFIED; B96.89 - OTH BACTERIAL AGENTS THE CAUSE OF DISEASES CLASSD [id number] Status: Acute Plan: Klebsiella spp with MDR, continue Meropenem IV, consult ID for further recommendations for abx options after d/c (3) Acute kidney injury superimposed on CKD Code(s): N17.9 - ACUTE KIDNEY FAILURE, UNSPECIFIED; N18.9 - CHRONIC KIDNEY DISEASE, UNSPECIFIED Status: Acute Plan: Resolving, continue IVF's (4) Hypokalemia Code(s): E87.6 - HYPOKALEMIA Status: Acute Plan: Resolving (5) Transaminitis Code(s): R74.0 - NONSPEC ELEV OF LEVELS OF TRANSAMNS & LACTIC ACID DEHYDRGNSE Status: Acute Plan: Improving, likely due to sepsis, serial monitoring - Plan continue antibiotics, PT/OT, social staff worker, DVT proph w/SCDs Continue supportive mgmt Change IVF to D51/2NS @ 75ml/h Continue Meropenem 2gm IV q8h Consult ID regarding MDR Klebsiella spp on Ucx D/C Rocephin KCL supplementation AM lab: CMP, CBC
[2020-01-06] MEDS: Dextrose 5 %-0.45 % NaCl 1,000 ML IV SCH (11:31)
--- NOTE | 2020-01-06 11:43 | PQF ---
VICKY LOPEZ CAMILLA CARMICHAEL DO [id number] [facility]-232 [id number] CLINICAL DOCUMENTATION IMPROVEMENT CLARIFICATION FORM: ICD-10 Updated PLEASE DO AN ADDENDUM TO THE PROGRESS NOTE WITH ANY DOCUMENTATION UPDATES OR ADDITIONS AND CARRY THROUGH TO DC SUMMARY. THANK YOU. DATE: 01/06/2020 ATTN:DR. Akanksha CARMICHAEL Please exercise your independent, professional judgment in responding to the clarification form. Clinical indicators are provided on the bottom of this form for your review. Please check appropriate box(s): [ ] Associated Diagnosis: [ x ] Other diagnosis ___Sepsis syndrome [ ] Unable to determine In addition, please specify: Present on Admission (POA): [ x ] Yes [ ] No [ ] Unable to determine For continuity of documentation, please document condition throughout progress notes and discharge summary. Thank You. CLINICAL INDICATORS - SIGNS / SYMPTOMS/ LABS are present in the medical record: 01/01 ED REPORT : PT WAS FOUND DOWN, SHE REPORTEDLY FELL AND IS HYPOXIC FOR EMS WITH SATS IN THE 80'S 01/02 TROPONIN I 0.114, 0.119. 0.084 RISK: HX MYOCARDIAL INFARCTION WITH PCI TO LAD 2018, HTN, DYSLIPIDEMIA, SEPSIS, (H&P/JANY) 01/02 HX SEPTIC SHOCK WITH CARDIAC ARREST D/T INFECTED RENAL STONES, CAD ( ED REPORT) 01/02) TREATMENT: SERIAL TROPONIN I ( 01/02) SUPPLEMENTAL OXYGEN THANK YOU! FABIENNE (This form is maintained as a part of the permanent medical record) 2014 [employer], [employer]. All Rights Reserved TRACEY [email or web address]
--- NOTE | 2020-01-06 16:59 | CT ---
CT Stone Protocol 01/06/2020 3:56 PM HISTORY: History a staghorn renal calculus right kidney. Pyelonephritis. Sepsis. COMPARISON: 11/06/2017 Technique: Multiple contiguous axial CT images are obtained through the abdomen and pelvis without IV contrast. Coronal reformats are provided. FINDINGS: This examination is limited for the evaluation of solid organs and vascular structures due to the lac k of intravenous contrast. Lower Chest: Small bilateral pleural effusions and associated passive atelectasis are noted. The heart is enlarged. Vascular calcifications are seen in the coronary arteries as well as involving the visualized distal thoracic aorta. There is a catheter entering in the epigastric region likely due to ventriculoperitoneal shunt cathet er. Tip terminates in the epigastric region. Abdomen: Liver: Increased in density when compared to prior exam. This is an overall nonspecific finding but c an be seen with prior amiodarone therapy, glycogen storage diseases, hemachromatosis, versus other etiologies. Gallbladder: Surgically absent. Pancreas: Atrophy. Spleen: Grossly normal nonenhanced CT appearance. Adrenals: Grossly normal nonenhanced CT appearance. Kidneys: An overall stable staghorn renal calculus is present with additional nonobstructing right re nal calculi seen. There is dilatation of a superior pole right renal calyx with overlying scarring present. This was also present on the prior exam with a small amount of increased density seen in thi s region on prior exam. Large nonobstructing calculi are seen in the region of the left renal pelvis and at the UPJ. Several calculi are seen in this region largest measuring approximate 19 mm x 7 mm. Additional inferior pole left renal calculi are seen largest measuring 1.3 cm. Large left renal cysts are again seen. There is mild dilatation of the superior pole left renal calyx versus sma ll parapelvic cyst. A calculus is now seen in the superior pole left kidney measuring 1.5 cm. Minimal right perinephric inflammatory stranding is present. This could be related to pyelonephritis on the right. There is also prominence of the proximal right ureter. This was also seen on the prior exam: although, the ureter was more diffusely dilated on the prior exam. Slight nonspecific het erogeneity is seen in the proximal left ureter. No obvious ureteral calculus is seen distal to this location. Slight adjacent inflammatory stranding. This finding may also be secondary to infection. No left ureteral calculus is seen. Pelvis: Urinary bladder: within normal limits. Reproductive Organs: Evidence of hysterectomy. Lymph Nodes: No enlarged lymph nodes. Bowel: Distention of the rectum with gas and retained fecal material. Loops of small bowel are normal in caliber. Appendix: Not visualized. However, there no secondary signs to suggest appendicitis. Peritoneum: No free fluid, free air, or fluid collection. Retroperitoneum: within normal limits. Vessels: Prominent vascular calcifications are seen.. Abdominal Wall: Mild subcutaneous edema seen lateral aspect of the pelvis bilaterally as well as in t he adipose soft tissues posterior to the right hip. Bones: Minimally fracture involving the right greater trochanter. This likely represents a more recent fracture. IMPRESSION: 1. Findings most suggestive of a recent right greater trochanter fracture. 2. Staghorn right renal calculus with persistent dilatation of a posterior superior pole right renal calyx as well as mild prominence of an anterior calyx midportion right kidney. Mild perinephric stranding is seen adjacent to the right kidney as well as adjacent to the proximal right ureter. Pyel onephritis cannot be excluded based on this exam. There has been overall improvement in the degree of dilatation of the right ureter noted on the prior study, and the increased density in the dilated posterior superior pole calyx on the prior study is no longer seen. 3. Interval development of multiple nonobstructing left renal calculi with multiple calculi in the re gion of the left renal pelvis. There is a calculus seen in the superior pole left kidney which does result in mild dilatation of the superior pole left renal calyx. However, a similar finding was seen on the prior exam although less prominent, and a calculus was not present in this region on the prior exam. Cyst in the superior pole left kidney is a possibility in this region. 4. Small bilateral pleural effusions and atelectasis. 5. Cardiomegaly and vascular calcifications. 6. Increased density of the liver which represents an interval change. This is overall nonspecific. T his can be seen with history of amiodarone therapy, glycogen storage diseases, versus iron deposition diseases.
[2020-01-06] MEDS ORDERED: MEROPENEM 1 GM/50 ML 1 GM in Premix Bag 1 BAG IVPB SCH (17:00)
--- NOTE | 2020-01-06 17:04 | CON ---
DATE OF CONSULTATION: 01/06/2020 REASON FOR CONSULTATION: Bacteremia. 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 The patient refused a LifeVest and returned with sepsis and was identified with staghorn calculus with mild obstruction and pyelonephritis, which was polymicrobial, including a resistant Klebsiella with ESBL phenotype as well as E coli and Proteus. She was transitioned to meropenem and treated for a protracted period of time. After that, I do not think she had any intervention. She is a resident at [facility] and was brought to the emergency room with hypoxemia, fall, left leg pain, fever, some cough, and nausea. The initial findings included BP 140/70, pulse 93, and O2 saturation 88 on room air and then 99 on 4 L with a BP 130/80. In the exam, the HEENT, heart, and lungs examination appeared to be unremarkable. The abdomen was not tender. There was limited range of motion of the left hip. There was leg swelling and ecchymosis. The hip x-ray did not show any abnormalities. The chest x-ray with a left effusion, chronic appearing. Other findings on admission included white cell count of 12.8, hemoglobin 12.6, platelets 214 with 30% bands. The chemistry initially with a sodium 151, creatinine 1.34 which is higher than her baseline of 0.8, AST 58, bilirubin normal, ALT 54, alkaline phosphatase 177, and albumin 2.9. Urinalysis was abnormal with greater than 50 wbc's. She had a COVID test, which was negative. Then, 2 sets of blood cultures with positive for Klebsiella pneumoniae with the same resistant profile as the one from 2018. Currently, she insists that she wants to go back to the assisted. She denies any headaches. No shortness of breath or chest pain. No cough. No abdominal pain. She is voiding in the diaper. The pain in the left lower extremity appears to be less, but still they are somewhat. PAST MEDICAL HISTORY: 1. Coronary artery disease, [place], LAND COMMISSIONER to LAD, torsade de pointes. 2. Hypertension. 3. 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 Weakness in the right lower extremity is worse than the right upper extremity. 4. History of neurogenic bladder. 5. Depression. 6. GI bleed. 7. Nephrolithiasis with staghorn calculus localized in the right kidney with mild hydronephrosis in 2018. I do not think she has had any intervention. In 2018, it was felt that she did not require stenting. ALLERGIES: NONE. FAMILY HISTORY: Coronary artery disease and breast cancer. SOCIAL HISTORY: [facility] Home resident for the past many years, 12 years approximately. Never smoker. MEDICATION LIST: At the moment: 1. P.r.n. medications. 2. Cordarone. 3. Lipitor. 4. Coreg. 5. Plavix. 6. Pepcid. 7. Lasix. 8. Meropenem 2 g q.8. 9. Protonix. 10. MiraLAX. 11. Tramadol. PHYSICAL EXAMINATION: VITAL SIGNS: T-max 99.1, blood pressure 113/70, pulse 75, O2 saturation 95% on 2 L. SKIN: With area of kind of a round-shaped, punched up localized to the tip of the coccygeal area and is very shallow, but there is bone right under it, still covered by periosteum. There is no erythema surrounding this area. There was some on arrival. She has a peripheral IV access and voiding in the diaper. No lymphadenopathy. HEENT: Ocular movements conjugate. Oral cavity with artificial dentures. Oral mucosa is normal. NECK: Without jugular vein distention. No tenderness. LUNGS: Clear breath sounds. HEART: S1 and S2. Regular rate. No S3 or S4. ABDOMEN: Soft, not distended or tender. No bladder distention. EXTREMITIES: Still a little tenderness on range of motion of the left hip. A little bit of bruising there. Pulses are 1+ in dorsalis pedis. EXTREMITIES: She has a dropped right foot from the previous CVA and abnormalities. She is awake, oriented, keeps asking to go back to the assisted. LABORATORY DATA: White cell count followup is 12,000, hemoglobin 10, platelets 166, 76% neutrophils, and 3% bands. Creatinine is down to 0.94. AST 62, ALT 138, alkaline phosphatase 113, and albumin 2.5. ASSESSMENT AND PLAN: 1. Coronary artery disease. 2. Prior cerebrovascular accident. 3. Right hemiparesis. 4. Staghorn calculus, right kidney, with previous mild obstruction and episode of pyelonephritis in 2018. 5. Weakness. 6. Cough. 7. Fever. 8. Hypotension. 9. Klebsiella pneumoniae bacteremia, likely the same organism that had been isolated in 2018, probably from the same site in the right kidney with likely recurrence of the pyelonephritis. DISCUSSION: This is a persistence of the problem that was initially identified in 2018. I believe it has been managed conservatively. I assume that she still has the staghorn calculus in the right kidney. We will need to repeat the imaging study with a CT stone protocol to verify that there is no obstruction. In that case, she would require stenting. If not, then I guess the management would be the same one that was carried out in 2018, but we will see what the imaging shows. We will decrease meropenem dose to 1 g q.8 h. and we will follow up the CT stone protocol. The left hip did not seem to have any fracture. Sometimes those hips may not show a fracture in the plain imaging study, but if she keeps to be symptomatic, then a more sensitive study, such as a CT scan or an MRI would be recommended to rule out fracture of the hip. Job ID: [id number]
[2020-01-06] MEDS: Mirtazapine 15 MG TAB PO SCH (22:32)
[2020-01-06] MEDS: Atorvastatin Calcium 40 MG TAB PO SCH (22:32)
[2020-01-06] MEDS: MEROPENEM 1 GM/50 ML 1 GM in Premix Bag 1 BAG IVPB SCH (23:45)
[2020-01-07] MEDS: MEROPENEM 1 GM/50 ML 1 GM in Premix Bag 1 BAG IVPB SCH ×3 (05:51→22:53)
[2020-01-07] MEDS: Dextrose 5 %-0.45 % NaCl 1,000 ML IV SCH ×2 (05:51→16:27)
[2020-01-07 06:27] LABS: Crenated RBC SLIGHT = 1-5 cells (100X) (None Seen); Elliptocytes SLIGHT = 2-5 cells (100X) (0-1/hpf); Eosinophils 4 % (0-10); Hemoglobin 10.9 g/dL (12.0-16.0); Lymphocytes 23 % (21-51); MDiff Complete? YES; Mean Corpuscular HGB CONC 33.3 g/dL (32.0-36.0); Mean Corpuscular Hemoglobin 31.9 pg (27.0-31.0); Mean Corpuscular Volume 95.6 fL (78.0-98.0); Mean Platelet Volume 8.7 fL (7.4-10.4); Metamyelocyte 1 % (0-0); Monocytes 14 % (0-10); Neutrophil 58 % (42-75); Nucleated RBC 1 % (0); Platelet Count 152 thou/uL (130-400); Platelet Morphology Comment Appears Adequate; RBC Distribution Width 13.1 % (11.5-14.5); Red Blood Cell (RBC) Count 3.41 mill/uL (4.20-5.40); White Blood Cell (WBC) Count 10.1 thou/uL (4.8-10.8)
[2020-01-07 06:35] LABS: ALT (SGPT) 95 U/L (8-55); AST (SGOT) 31 U/L (5-34); Albumin 2.6 g/dL (3.4-4.8); Alkaline Phosphatase 117 U/L (40-110); Anion Gap 11 mmol/L (10-20); BUN (Urea Nitrogen) 15 mg/dL (9.8-20.1); Bilirubin, Total 0.7 mg/dL (0.2-1.2); Calc. Creatinine Clearance 55 mL/min (70-130); Calcium 7.7 mg/dL (7.8-10.44); Carbon Dioxide 16 mmol/L (23-31); Chloride 122 mmol/L (98-107); Estimated GFR-MDRD 63; Globulin 3.3 g/dL (2.4-3.5); Glucose 111 mg/dL (83-110); Protein, Total 5.9 g/dL (6.0-8.3); Sodium 145 mmol/L (136-145)
[2020-01-07] MEDS: Aspirin Chewable 81 MG TAB PO SCH (09:30)
[2020-01-07] MEDS: Famotidine 20 MG TAB PO SCH (09:30)
[2020-01-07] MEDS: Amiodarone 200 MG TAB PO SCH (09:30)
[2020-01-07] MEDS: Potassium Chloride 20 MEQ TAB PO SCH ×2 (09:31→20:49)
[2020-01-07] MEDS: Carvedilol 6.25 MG TAB PO SCH ×2 (09:31→20:49)
[2020-01-07] MEDS: Clopidogrel Bisulfate 75 MG TAB PO SCH (09:33)
[2020-01-07] MEDS: Polyethylene Glycol 3350 17 GM Packet PO SCH ×2 (09:34→20:50)
--- NOTE | 2020-01-07 18:40 | PDOC.HOSPP ---
- Subjective Encounter Date: 01/07/20 Encounter Time: 11:15 Subjective: pt up in bed eating complains of pain to her right hip area. - Objective Vital Signs & Weight: Vital Signs (12 hours) Temp Pulse Resp BP BP Pulse Ox 01/07/20 16:00 98.0 F 73 20 144/92 H 92 L 01/07/20 12:51 98.1 F 20 140/85 96 01/07/20 09:31 133/73 01/07/20 08:00 94 L 01/07/20 07:05 97.7 F 78 18 143/85 H 94 L Weight Admit Weight 147 lb 11.2 oz Weight 147 lb 11.355 oz I&O: 01/06/20 01/07/20 01/08/20 06:59 06:59 06:59 Intake Total 1140 1240 Output Total 401 Balance 739 1240 Result Diagrams: 01/07/20 06:03 01/07/20 06:03 Hospitalist ROS - Review of Systems Cardiovascular: denies: chest pain, palpitations, orthopnea, paroxysmal noc. dyspnea, edema, light headedness, other Gastrointestinal: denies: nausea, vomiting, abdominal pain, diarrhea, constipation, melena, hematochezia, other Genitourinary: denies: dysuria, frequency, incontinence, hematuria, retention, other Musculoskeletal: reports: other (right hip) - Medication Medications: Active Medications Generic Name Dose Route Start Last Admin Trade Name Freq PRN Reason Stop Dose Admin Acetaminophen 1,000 mg 01/03/20 15:46 01/04/20 05:27 Tylenol PO 1,000 mg Q6H PRN Administration Mild Pain (1-3) Amiodarone HCl 400 mg 01/04/20 09:00 01/07/20 09:30 Cordarone PO 400 mg DAILY RENA Administration Aspirin 81 mg 01/04/20 09:00 01/07/20 09:30 Aspirin Chewable PO 81 mg DAILY RENA Administration Atorvastatin Calcium 20 mg 01/03/20 21:00 01/06/20 22:32 Lipitor PO 20 mg HS RENA Administration Carvedilol 3.125 mg 01/03/20 21:00 01/07/20 09:31 Coreg PO 3.125 mg BID RENA Administration Clopidogrel Bisulfate 75 mg 01/04/20 09:00 01/07/20 09:33 Plavix PO 75 mg DAILY RENA Administration Famotidine 20 mg 01/06/20 09:00 01/07/20 09:30 Pepcid PO 20 mg DAILY RENA Administration Furosemide 40 mg 01/04/20 07:30 01/04/20 08:33 Lasix PO 40 mg DAILY-AC RENA Administration Dextrose/Sodium Chloride 1,000 mls @ 75 mls/hr 01/05/20 11:04 01/07/20 16:27 D5 1/2 Ns IV 1,000 mls .[id number] RENA Administration Meropenem 1 gm/ Device 50 mls @ 50 mls/hr 01/06/20 23:00 01/07/20 16:27 IVPB 50 mls [id number] RENA Administration Mirtazapine 15 mg 01/03/20 21:00 01/06/20 22:32 Remeron PO 15 mg HS RENA Administration Pantoprazole Sodium 40 mg 01/04/20 09:00 01/07/20 09:31 Protonix PO 40 mg DAILY RENA Administration Polyethylene Glycol 17 gm 01/03/20 21:00 01/07/20 09:34 Miralax PO Not Given BID RENA Potassium Chloride 20 meq 01/03/20 21:00 01/07/20 09:31 K-Dur PO 20 meq BID RENA Administration Sodium Chloride 10 ml 01/04/20 21:00 01/07/20 09:33 Flush - Normal Saline IVF Not Given Q12HR RENA Tramadol HCl 50 mg 01/04/20 02:23 01/04/20 14:23 Ultram PO 50 mg Q4H PRN Administration Moderate Pain (4-6) - Exam Neck: negative: supple, symmetric, no JVD, no thyromegaly, no lymphadenopathy, no carotid bruit, JVD Heart: negative: RRR, no murmur, no gallops, no rubs, normal peripheral pulses, irregular, diminshed peripheral pulses, murmur present, II/IV, III/IV Respiratory: negative: CTAB, no wheezes, no rales, no ronchi, normal chest expansion, no tachypnea, normal percussion, rales, rhonchi, tachypneic, wheezes Gastrointestinal: negative: soft, non-tender, non-distended, normal bowel sounds , no palpable masses, no hepatomegaly, no splenomegaly, no bruit, no guarding, no rigidity, tender to palpation, distended, diminished bowl sounds, voluntary guarding Extremities: 1+ LE edema Hosp A/P (1) Sepsis with metabolic encephalopathy Code(s): A41.9 - SEPSIS, UNSPECIFIED ORGANISM; R65.20 - SEVERE SEPSIS WITHOUT SEPTIC SHOCK; G93.41 - METABOLIC ENCEPHALOPATHY Status: Acute (2) Hip fracture, right Code(s): S72.001A - FRACTURE OF UNSP PART OF NECK OF RIGHT FEMUR, INIT Status : Acute (3) Hypernatremia Code(s): E87.0 - HYPEROSMOLALITY AND HYPERNATREMIA Status: Acute (4) UTI (urinary tract infection) Status: Acute (5) CAD (coronary artery disease) of artery bypass graft Code(s): I25.810 - ATHEROSCLEROSIS OF CABG W/O ANGINA PECTORIS Status: Chronic Qualifiers: Citizen [place] vs. transplanted heart: [place] heart Associated angina: with unstable angina Qualified Code(s): I25.700 - Atherosclerosis of coronary artery bypass graft(s), unspecified, with unstable angina pectoris (6) HTN (hypertension) Code(s): I10 - ESSENTIAL (PRIMARY) HYPERTENSION Status: Chronic Qualifiers: Hypertension type: essential hypertension Qualified Code(s): I10 - Essential (primary) hypertension (7) Staghorn calculus Code(s): N20.0 - CALCULUS OF KIDNEY Status: Chronic (8) LFTs abnormal Code(s): R94.5 - ABNORMAL RESULTS OF LIVER FUNCTION STUDIES Status: Acute (9) Pyelonephritis Code(s): N12 - TUBULO-INTERSTITIAL NEPHRITIS, NOT SPCF ACUTE OR CHRONIC Status: Acute - Plan per nursing staff pt has been falling a lot at her care home. will consult ortho. pt on dvt ppx. will continue meropenem pt has significant staghorn right renal calculus with persistent dilatation.
[2020-01-07] MEDS: Atorvastatin Calcium 40 MG TAB PO SCH (20:49)
[2020-01-07] MEDS: Mirtazapine 15 MG TAB PO SCH (20:50)
--- NOTE | 2020-01-08 00:08 | CON ---
DATE OF CONSULTATION: 01/07/2020 CHIEF COMPLAINT: Right hip pain. HISTORY OF PRESENT ILLNESS: Ms. Ornelas is an 79-year-old female, who has been admitted to the hospital approximately four days ago. Prior to her admission, she had fallen out of bed in her nursing facility. She had pain in her hip, possibly the left hip as well as the right hip. Initial x-ray was read as negative. She has had continued hip pain and had a recent CT scan done yesterday. The CT scan has demonstrated a greater trochanteric fracture on the right side. She is being treated for a urinary tract infection, which is recurrent as well. Dr. Ramon has been seeing the patient. She has renal calculi as well. ALLERGIES: NO KNOWN DRUG ALLERGIES. 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 FAMILY MEDICAL HISTORY: Coronary artery disease and breast cancer. SOCIAL HISTORY: The patient lives in a nursing facility. She denies tobacco, alcohol, or drug use. REVIEW OF SYSTEMS: Positive for pain in the right hip with motion. Otherwise, negative 10-point review of systems currently. IMAGES: X-rays of the right hip from 01/03/2020 show possible subtle irregularity of the greater trochanteric region of the femur; however, there is no obvious acute fracture or displacement. CT scan from 01/06/2020 regarding the bony structure shows a fracture of the proximal aspect of the greater trochanter with minimal displacement. This does not appear to extend through the intertrochanteric region of the hip. PHYSICAL EXAMINATION: VITAL SIGNS: Temperature is 98.0, pulse is 73, respiratory rate is 20, and blood pressure is 144/92. HEENT: Normocephalic and atraumatic. RESPIRATORY: Breathing comfortably. ABDOMEN: Soft, nontender, and nondistended. CARDIOVASCULAR: Pulses palpable and regular. MUSCULOSKELETAL: The patient's right lower extremity has pain over the greater trochanter to palpation. She has pain with hip motion laterally as well. Equal leg length. Neurovascular intact in the feet and ankles. She is able to flex and extend the foot and ankle. IMPRESSION: Right greater trochanteric fracture of the femur in an elderly female being treated for urinary tract infection. PLAN: At this point, the patient can mobilize without restriction. She can weightbear as tolerated. She will need a walker for support and assistance. She likely can receive physical therapy in her nursing facility. No need for orthopedic followup if the patient's pain resolves. If she has persistent symptoms after four weeks, I would like to see her back in the clinic for repeat x-ray. She will not need surgical intervention for this injury. Job ID: [id number]
[2020-01-08] MEDS: MEROPENEM 1 GM/50 ML 1 GM in Premix Bag 1 BAG IVPB SCH ×3 (06:18→22:36)
[2020-01-08] MEDS: Dextrose 5 %-0.45 % NaCl 1,000 ML IV SCH (06:18)
[2020-01-08] MEDS: Potassium Chloride 20 MEQ TAB PO SCH ×2 (07:28→20:52)
[2020-01-08] MEDS: Famotidine 20 MG TAB PO SCH (07:28)
[2020-01-08] MEDS: Amiodarone 200 MG TAB PO SCH (07:29)
[2020-01-08] MEDS: Furosemide 40 MG TAB PO SCH (07:29)
[2020-01-08] MEDS: Carvedilol 6.25 MG TAB PO SCH ×2 (07:29→20:53)
[2020-01-08] MEDS: Aspirin Chewable 81 MG TAB PO SCH (07:30)
[2020-01-08] MEDS: Clopidogrel Bisulfate 75 MG TAB PO SCH (07:31)
[2020-01-08] MEDS: Polyethylene Glycol 3350 17 GM Packet PO SCH ×2 (07:31→20:56)
[2020-01-08 12:15] LABS: ALT (SGPT) 67 U/L (8-55); AST (SGOT) 30 U/L (5-34); Albumin 2.7 g/dL (3.4-4.8); Alkaline Phosphatase 121 U/L (40-110); Anion Gap 10 mmol/L (10-20); BUN (Urea Nitrogen) 13 mg/dL (9.8-20.1); Bilirubin, Total 0.6 mg/dL (0.2-1.2); Calc. Creatinine Clearance 54 mL/min (70-130); Calcium 7.4 mg/dL (7.8-10.44); Carbon Dioxide 17 mmol/L (23-31); Chloride 122 mmol/L (98-107); Estimated GFR-MDRD 62; Glucose 102 mg/dL (83-110); Potassium 4.2 mmol/L (3.5-5.1); Protein, Total 5.7 g/dL (6.0-8.3); Sodium 145 mmol/L (136-145)
--- NOTE | 2020-01-08 13:01 | PDOC.HOSPP ---
- Subjective Encounter Date: 01/08/20 Encounter Time: 09:45 Subjective: pt up in bed no complains - Objective Vital Signs & Weight: Vital Signs (12 hours) Temp Pulse Resp BP BP BP Pulse Ox 01/08/20 11:32 97.9 F 67 15 139/81 94 L 01/08/20 08:00 93 L 01/08/20 07:29 143/84 H 01/08/20 07:24 97.7 F 71 18 143/84 H 93 L 01/08/20 04:00 98.4 F 74 16 142/89 H 94 L Weight Admit Weight 147 lb 11.2 oz Weight 147 lb 11.355 oz I&O: 01/07/20 01/08/20 01/09/20 06:59 06:59 06:59 Intake Total 1140 2540 Output Total 401 400 Balance 739 2140 Result Diagrams: 01/07/20 06:03 01/08/20 11:42 Hospitalist ROS - Review of Systems Other: unable to obtain. - Medication Medications: Active Medications Generic Name Dose Route Start Last Admin Trade Name Freq PRN Reason Stop Dose Admin Acetaminophen 1,000 mg 01/03/20 15:46 01/04/20 05:27 Tylenol PO 1,000 mg Q6H PRN Administration Mild Pain (1-3) Amiodarone HCl 400 mg 01/04/20 09:00 01/08/20 07:29 Cordarone PO 400 mg DAILY RENA Administration Aspirin 81 mg 01/04/20 09:00 01/08/20 07:30 Aspirin Chewable PO 81 mg DAILY RENA Administration Atorvastatin Calcium 20 mg 01/03/20 21:00 01/07/20 20:49 Lipitor PO 20 mg HS RENA Administration Carvedilol 3.125 mg 01/03/20 21:00 01/08/20 07:29 Coreg PO 3.125 mg BID RENA Administration Clopidogrel Bisulfate 75 mg 01/04/20 09:00 01/08/20 07:31 Plavix PO 75 mg DAILY RENA Administration Famotidine 20 mg 01/06/20 09:00 01/08/20 07:28 Pepcid PO 20 mg DAILY RENA Administration Furosemide 40 mg 01/04/20 07:30 01/08/20 07:29 Lasix PO 40 mg DAILY-AC RENA Administration Meropenem 1 gm/ Device 50 mls @ 50 mls/hr 01/06/20 23:00 01/08/20 06:18 IVPB 50 mls 0700,1500,2300 RENA Administration Mirtazapine 15 mg 01/03/20 21:00 01/07/20 20:50 Remeron PO 15 mg HS RENA Administration Pantoprazole Sodium 40 mg 01/04/20 09:00 01/08/20 07:30 Protonix PO 40 mg DAILY RENA Administration Polyethylene Glycol 17 gm 01/03/20 21:00 01/08/20 07:31 Miralax PO Not Given BID RENA Potassium Chloride 20 meq 01/03/20 21:00 01/08/20 07:28 K-Dur PO 20 meq BID RENA Administration Sodium Chloride 10 ml 01/04/20 21:00 01/08/20 07:31 Flush - Normal Saline IVF Not Given Q12HR RENA Tramadol HCl 50 mg 01/04/20 02:23 01/04/20 14:23 Ultram PO 50 mg Q4H PRN Administration Moderate Pain (4-6) - Exam Heart: negative: RRR, no murmur, no gallops, no rubs, normal peripheral pulses, irregular, diminshed peripheral pulses, murmur present, II/IV, III/IV Respiratory: negative: CTAB, no wheezes, no rales, no ronchi, normal chest expansion, no tachypnea, normal percussion, rales, rhonchi, tachypneic, wheezes Gastrointestinal: negative: soft, non-tender, non-distended, normal bowel sounds , no palpable masses, no hepatomegaly, no splenomegaly, no bruit, no guarding, no rigidity, tender to palpation, distended, diminished bowl sounds, voluntary guarding Extremities: 1+ LE edema Hosp A/P (1) Sepsis with metabolic encephalopathy Code(s): A41.9 - SEPSIS, UNSPECIFIED ORGANISM; R65.20 - SEVERE SEPSIS WITHOUT SEPTIC SHOCK; G93.41 - METABOLIC ENCEPHALOPATHY Status: Acute (2) Hip fracture, right Code(s): S72.001A - FRACTURE OF UNSP PART OF NECK OF RIGHT FEMUR, INIT Status : Acute (3) Hypernatremia Code(s): E87.0 - HYPEROSMOLALITY AND HYPERNATREMIA Status: Acute (4) UTI (urinary tract infection) Status: Acute (5) CAD (coronary artery disease) of artery bypass graft Code(s): I25.810 - ATHEROSCLEROSIS OF CABG W/O ANGINA PECTORIS Status: Chronic Qualifiers: [place] vs. transplanted heart: [place] heart Associated angina: with unstable angina Qualified Code(s): I25.700 - Atherosclerosis of coronary artery bypass graft(s), unspecified, with unstable angina pectoris (6) HTN (hypertension) Code(s): I10 - ESSENTIAL (PRIMARY) HYPERTENSION Status: Chronic Qualifiers: Hypertension type: essential hypertension Qualified Code(s): I10 - Essential (primary) hypertension (7) Staghorn calculus Code(s): N20.0 - CALCULUS OF KIDNEY Status: Chronic (8) LFTs abnormal Code(s): R94.5 - ABNORMAL RESULTS OF LIVER FUNCTION STUDIES Status: Acute (9) Pyelonephritis Code(s): N12 - TUBULO-INTERSTITIAL NEPHRITIS, NOT SPCF ACUTE OR CHRONIC Status: Acute (10) Metabolic acidosis Code(s): E87.2 - ACIDOSIS Status: Acute Plan: non anion gap (11) JO-ANN (acute kidney injury) Code(s): N17.9 - ACUTE KIDNEY FAILURE, UNSPECIFIED Status: Acute - Plan per nursing staff pt [facility] will consult ortho. pt on dvt ppx. will continue meropenem pt has significant staghorn right renal calculus with persistent dilatation. 01/07 pt still requires oxygen. no intervention for right hip fx. will get PT to see her. Jo-Ann resolved. will get her incentive spirometry. her covid was negative. upon reviewing her records her echo indicated ef of 20-25% in 2018 at that time the plan was for her to follow up outpatient for icd if her ef does not improve. since she was actively being treated for sepsi from uti. will get an echo. last echo also mentioned enlarge right ventricle.
[2020-01-08] MEDS: Atorvastatin Calcium 40 MG TAB PO SCH (20:53)
[2020-01-08] MEDS: Mirtazapine 15 MG TAB PO SCH (20:55)
[2020-01-09 05:52] LABS: #Eosinphils 0.7 thou/uL (0.0-0.7); #Lymphocytes 2.9 thou/uL (1.20-3.40); #Monocytes 1.4 thou/uL (0.11-0.59); #Neutrophils 7.7 thou/uL (1.40-6.50); %Basophils 0.3 % (0.0-1.0); %Eosinophils 5.4 % (0.0-10.0); %Monocytes 10.7 % (0.0-10.0); %Neutrophils 60.7 % (42.0-75.0); Hemoglobin 10.6 g/dL (12.0-16.0); Mean Corpuscular HGB CONC 31.9 g/dL (32.0-36.0); Mean Corpuscular Hemoglobin 31.9 pg (27.0-31.0); Mean Corpuscular Volume 99.9 fL (78.0-98.0); Mean Platelet Volume 8.7 fL (7.4-10.4); Platelet Count 254 thou/uL (130-400); RBC Distribution Width 13.7 % (11.5-14.5); Red Blood Cell (RBC) Count 3.32 mill/uL (4.20-5.40); White Blood Cell (WBC) Count 12.6 thou/uL (4.8-10.8)
[2020-01-09 06:09] LABS: ALT (SGPT) 49 U/L (8-55); AST (SGOT) 26 U/L (5-34); Albumin 2.4 g/dL (3.4-4.8); Alkaline Phosphatase 113 U/L (40-110); Anion Gap 9 mmol/L (10-20); BUN (Urea Nitrogen) 15 mg/dL (9.8-20.1); Bilirubin, Total 0.8 mg/dL (0.2-1.2); Calc. Creatinine Clearance 52 mL/min (70-130); Calcium 7.3 mg/dL (7.8-10.44); Carbon Dioxide 19 mmol/L (23-31); Chloride 122 mmol/L (98-107); Estimated GFR-MDRD 59; Glucose 82 mg/dL (83-110); Potassium 3.7 mmol/L (3.5-5.1); Protein, Total 5.4 g/dL (6.0-8.3); Sodium 146 mmol/L (136-145)
[2020-01-09] MEDS: MEROPENEM 1 GM/50 ML 1 GM in Premix Bag 1 BAG IVPB SCH ×3 (07:13→23:38)
[2020-01-09] MEDS: Amiodarone 200 MG TAB PO SCH (08:52)
[2020-01-09] MEDS: Carvedilol 6.25 MG TAB PO SCH ×2 (08:53→21:19)
[2020-01-09] MEDS: Famotidine 20 MG TAB PO SCH (08:53)
[2020-01-09] MEDS: Clopidogrel Bisulfate 75 MG TAB PO SCH (08:53)
[2020-01-09] MEDS: Aspirin Chewable 81 MG TAB PO SCH (08:55)
[2020-01-09] MEDS: Potassium Chloride 20 MEQ TAB PO SCH ×2 (08:55→21:21)
[2020-01-09] MEDS: Polyethylene Glycol 3350 17 GM Packet PO SCH ×2 (08:57→21:22)
--- NOTE | 2020-01-09 17:02 | PRG ---
DATE OF SERVICE: 01/09/2020 SUBJECTIVE: The patient does not really have any complaints. She is more alert, still a bit disoriented. Denied any chest pain. No abdominal pain. She is voiding in the diaper. OBJECTIVE: VITAL SIGNS: Temperature max 98.7. Other vital signs are normal. O2 saturations are 95% on 2 L nasal cannula. GENERAL: Awake, alert. LUNGS: Clear. HEART: S1, S2, regular rate. ABDOMEN: Soft, not distended. EXTREMITIES: Moves extremities equally. LABORATORY DATA: White cell count is 12.6, hemoglobin 10.6, platelets 254, 60% neutrophils. Creatinine is 0.92. Microbiology with Klebsiella pneumonia with ESBL phenotype. The abdomen and pelvis CT with right greater trochanteric fracture, staghorn right renal calculus with dilatation of posterior superior pole of right renal calyx and mild perinephric stranding seen, and then left-sided renal calculi which are nonobstructing. ASSESSMENT AND DISCUSSION: Klebsiella pneumoniae bacteremia, likely this is recurrence of the same problem she had in the past. Previously Urology did not recommend any intervention. I think urologist's recommendation would not change since the imaging has not changed since. Regarding the other issue, Dr. Lutz has been consulted and it is going to be managed with conservative approach. She is currently on meropenem and can be transitioned to Invanz. I would probably treat her for 4 weeks through a PICC line. Job ID: [id number]
--- NOTE | 2020-01-09 18:03 | PDOC.HOSPP ---
- Subjective Encounter Date: 01/09/20 Encounter Time: 11:51 Subjective: pt up in bed no complains. - Objective Vital Signs & Weight: Vital Signs (12 hours) Temp Pulse Resp BP Pulse Ox 01/09/20 08:45 95 01/09/20 08:00 97.5 F L 75 20 147/82 H 95 Weight Admit Weight 147 lb 11.2 oz Weight 147 lb 11.355 oz I&O: 01/08/20 01/09/20 01/10/20 06:59 06:59 06:59 Intake Total 2540 Output Total 400 Balance 2140 Result Diagrams: 01/09/20 05:22 01/09/20 05:22 Hospitalist ROS - Medication Medications: Active Medications Generic Name Dose Route Start Last Admin Trade Name Freq PRN Reason Stop Dose Admin Acetaminophen 1,000 mg 01/03/20 15:46 01/04/20 05:27 Tylenol PO 1,000 mg Q6H PRN Administration Mild Pain (1-3) Amiodarone HCl 400 mg 01/04/20 09:00 01/09/20 08:52 Cordarone PO 400 mg DAILY RENA Administration Aspirin 81 mg 01/04/20 09:00 01/09/20 08:55 Aspirin Chewable PO 81 mg DAILY RENA Administration Atorvastatin Calcium 20 mg 01/03/20 21:00 01/08/20 20:53 Lipitor PO 20 mg HS RENA Administration Carvedilol 3.125 mg 01/03/20 21:00 01/09/20 08:53 Coreg PO 3.125 mg BID RENA Administration Clopidogrel Bisulfate 75 mg 01/04/20 09:00 01/09/20 08:53 Plavix PO 75 mg DAILY RENA Administration Famotidine 20 mg 01/06/20 09:00 01/09/20 08:53 Pepcid PO 20 mg DAILY RENA Administration Furosemide 40 mg 01/04/20 07:30 01/08/20 07:29 Lasix PO 40 mg DAILY-AC RENA Administration Meropenem 1 gm/ Device 50 mls @ 50 mls/hr 01/06/20 23:00 01/09/20 16:12 IVPB 50 mls 0700,1500,2300 RENA Administration Mirtazapine 15 mg 01/03/20 21:00 01/08/20 20:55 Remeron PO 15 mg HS RENA Administration Pantoprazole Sodium 40 mg 01/04/20 09:00 01/09/20 08:55 Protonix PO 40 mg DAILY RENA Administration Polyethylene Glycol 17 gm 01/03/20 21:00 01/09/20 08:57 Miralax PO 17 gm BID RENA Administration Potassium Chloride 20 meq 01/03/20 21:00 01/09/20 08:55 K-Dur PO 20 meq BID RENA Administration Sodium Chloride 10 ml 01/04/20 21:00 01/09/20 09:20 Flush - Normal Saline IVF Not Given Q12HR RENA Tramadol HCl 50 mg 01/04/20 02:23 01/04/20 14:23 Ultram PO 50 mg Q4H PRN Administration Moderate Pain (4-6) Hosp A/P (1) Sepsis with metabolic encephalopathy Code(s): A41.9 - SEPSIS, UNSPECIFIED ORGANISM; R65.20 - SEVERE SEPSIS WITHOUT SEPTIC SHOCK; G93.41 - METABOLIC ENCEPHALOPATHY Status: Acute (2) Hip fracture, right Code(s): S72.001A - FRACTURE OF UNSP PART OF NECK OF RIGHT FEMUR, INIT Status : Acute (3) Hypernatremia Code(s): E87.0 - HYPEROSMOLALITY AND HYPERNATREMIA Status: Acute (4) UTI (urinary tract infection) Status: Acute (5) CAD (coronary artery disease) of artery bypass graft Code(s): I25.810 - ATHEROSCLEROSIS OF CABG W/O ANGINA PECTORIS Status: Chronic Qualifiers: [place] vs. transplanted heart: [place] heart Associated angina: with unstable angina Qualified Code(s): I25.700 - Atherosclerosis of coronary artery bypass graft(s), unspecified, with unstable angina pectoris (6) HTN (hypertension) Code(s): I10 - ESSENTIAL (PRIMARY) HYPERTENSION Status: Chronic Qualifiers: Hypertension type: essential hypertension Qualified Code(s): I10 - Essential (primary) hypertension (7) Staghorn calculus Code(s): N20.0 - CALCULUS OF KIDNEY Status: Chronic (8) LFTs abnormal Code(s): R94.5 - ABNORMAL RESULTS OF LIVER FUNCTION STUDIES Status: Acute (9) Pyelonephritis Code(s): N12 - TUBULO-INTERSTITIAL NEPHRITIS, NOT SPCF ACUTE OR CHRONIC Status: Acute (10) Metabolic acidosis Code(s): E87.2 - ACIDOSIS Status: Acute (11) JO-ANN (acute kidney injury) Code(s): N17.9 - ACUTE KIDNEY FAILURE, UNSPECIFIED Status: Acute - Plan per nursing staff pt has been falling a lot at her shelter. will consult ortho. pt on dvt ppx. will continue meropenem pt has significant staghorn right renal calculus with persistent dilatation. 01/07 pt still requires oxygen. no intervention for right hip fx. will get PT to see her. Jo-Ann resolved. will get her incentive spirometry. her covid was negative. upon reviewing her records her echo indicated ef of 20-25% in 2018 at that time the plan was for her to follow up outpatient for icd if her ef does not improve. since she was actively being treated for sepsi from uti. will get an echo. last echo also mentioned enlarge right ventricle. 01/08 spoke to pt's son and updated him about her medical issues. Her repeat echo did indicate low ef. I have informed pt's son that he will have to take her to cardiology once her infection is cleared. she will need prn oxygen and will need abx for 4 weeks. pt at baseline does not walk. will encourage her to drink more water.
[2020-01-09] MEDS: Atorvastatin Calcium 40 MG TAB PO SCH (21:21)
[2020-01-09] MEDS: Mirtazapine 15 MG TAB PO SCH (21:22)
[2020-01-10] MEDS: MEROPENEM 1 GM/50 ML 1 GM in Premix Bag 1 BAG IVPB SCH ×3 (05:49→23:14)
[2020-01-10] MEDS: Famotidine 20 MG TAB PO SCH (09:01)
[2020-01-10] MEDS: Amiodarone 200 MG TAB PO SCH (09:01)
[2020-01-10] MEDS: Potassium Chloride 20 MEQ TAB PO SCH ×2 (09:02→20:11)
[2020-01-10] MEDS: Carvedilol 6.25 MG TAB PO SCH ×2 (09:02→20:10)
[2020-01-10] MEDS: Polyethylene Glycol 3350 17 GM Packet PO SCH ×2 (09:03→20:11)
[2020-01-10] MEDS: Aspirin Chewable 81 MG TAB PO SCH (09:09)
[2020-01-10] MEDS: Clopidogrel Bisulfate 75 MG TAB PO SCH (09:09)
[2020-01-10 12:23] LABS: #Eosinphils 0.7 thou/uL (0.0-0.7); #Monocytes 0.8 thou/uL (0.11-0.59); #Neutrophils 6.1 thou/uL (1.40-6.50); %Basophils 0.5 % (0.0-1.0); %Eosinophils 7.6 % (0.0-10.0); %Lymphocytes 20.6 % (21.0-51.0); %Monocytes 8.4 % (0.0-10.0); %Neutrophils 62.9 % (42.0-75.0); Hemoglobin 10.9 g/dL (12.0-16.0); Mean Corpuscular Hemoglobin 30.7 pg (27.0-31.0); Mean Corpuscular Volume 99.2 fL (78.0-98.0); Mean Platelet Volume 8.3 fL (7.4-10.4); Platelet Count 310 thou/uL (130-400); RBC Distribution Width 14.5 % (11.5-14.5); Red Blood Cell (RBC) Count 3.54 mill/uL (4.20-5.40); White Blood Cell (WBC) Count 9.7 thou/uL (4.8-10.8)
[2020-01-10 12:39] LABS: ALT (SGPT) 39 U/L (8-55); AST (SGOT) 26 U/L (5-34); Albumin 2.5 g/dL (3.4-4.8); Alkaline Phosphatase 125 U/L (40-110); Anion Gap 8 mmol/L (10-20); BUN (Urea Nitrogen) 15 mg/dL (9.8-20.1); Bilirubin, Total 0.7 mg/dL (0.2-1.2); Calc. Creatinine Clearance 55 mL/min (70-130); Calcium 7.3 mg/dL (7.8-10.44); Carbon Dioxide 21 mmol/L (23-31); Chloride 120 mmol/L (98-107); Estimated GFR-MDRD 63; Globulin 2.8 g/dL (2.4-3.5); Glucose 109 mg/dL (83-110); Magnesium 2.4 mg/dL (1.6-2.6); Potassium 4.3 mmol/L (3.5-5.1); Protein, Total 5.3 g/dL (6.0-8.3); Sodium 145 mmol/L (136-145)
--- NOTE | 2020-01-10 14:36 | SPC ---
Left upper extremity PICC placement sonographic guided HISTORY: Urinary tract infection. FINDINGS: After explaining the procedure and answering all questions, the left upper extremity was pr epped and draped in usual sterile fashion. Evaluation of the left upper arm showed the cephalic and basilic veins to contain echogenic material and the noncompressible. Sterile technique, buffered local anesthesia, sonographic guidance, and a 22-gauge needle were used t o carefully access the left brachial vein. Standard technique was used to place the tip of a 5 [place] single lumen PICC so that the tip lies at the level of the superior vena cava. Catheter was fl ushed and secured externally. Patient tolerated the procedure well and was returned in unchanged condition. Fluoroscopy time 0 seconds. IMPRESSION : Left upper extremity PICC is ready for use. Thrombosed left cephalic and basilic veins.
[2020-01-10] MEDS: Atorvastatin Calcium 40 MG TAB PO SCH (20:09)
[2020-01-10] MEDS: Mirtazapine 15 MG TAB PO SCH (20:11)
[2020-01-11] MEDS: MEROPENEM 1 GM/50 ML 1 GM in Premix Bag 1 BAG IVPB SCH ×2 (06:38→13:42)
[2020-01-11] MEDS: Amiodarone 200 MG TAB PO SCH (10:13)
[2020-01-11] MEDS: Aspirin Chewable 81 MG TAB PO SCH (10:13)
[2020-01-11] MEDS: Famotidine 20 MG TAB PO SCH (10:14)
[2020-01-11] MEDS: Carvedilol 6.25 MG TAB PO SCH (10:14)
[2020-01-11] MEDS: Furosemide 40 MG TAB PO SCH (10:14)
[2020-01-11] MEDS: Potassium Chloride 20 MEQ TAB PO SCH (10:14)
[2020-01-11] MEDS: Polyethylene Glycol 3350 17 GM Packet PO SCH (10:15)
[2020-01-11] MEDS: Clopidogrel Bisulfate 75 MG TAB PO SCH (10:15)
[2020-01-11 12:03] VITALS: BP 115/71; TEMP 97.6
--- NOTE | 2020-01-12 01:07 | DIS ---
DATE OF ADMISSION: 01/03/2020 DATE OF DISCHARGE: 01/11/2020 DISCHARGE DIAGNOSES: 1. Sepsis from urinary tract infection. 2. Metabolic encephalopathy, resolved, most likely secondary to sepsis and urinary tract infection. 3. Right hip fracture. 4. Hyponatremia, resolved. 5. Urinary tract infection. 6. Coronary artery disease. 7. Systolic heart failure, compensated. 8. Hypertension. 9. Staghorn calculus. 10. Pyelonephritis. 11. Metabolic acidosis. 12. Chronic kidney disease, resolved. 13. Acute kidney injury, resolved. HOSPITAL COURSE: The patient is an 79-year-old female who initially presented to the hospital on 01/02, with changes in mental status and fall. The patient at baseline is not very ambulatory per family and per custodial. The patient at this time was treated with broad-spectrum antibiotics. A CT of abdomen and pelvis was done. Prior to the CT of abdomen and pelvis, a hip x-ray was done which did not show any acute fracture. However, the CT of abdomen and pelvis indicated a greater trochanteric fracture. She also has staghorn right renal calculus with persistent dilation of the posterior superior pole of the right renal calyxes. Mild bilateral pleural effusion also was noted. The patient also at this time had underwent an echocardiogram, which indicated an EF of 20% to 25%, which was consistent with her prior echocardiogram. Upon reviewing the notes, I did note that the patient was supposed to follow up with Cardiology for possible ICD placement. However, in her previous hospitalization, she had a similar issue with sepsis, so at that time, an ICD placement was thought to be not feasible given her acute infection. I have discussed this with the patient's son and recommended the patient needs to follow up with Cardiology to see if she would be a candidate given her low EF. Her risk of arrhythmia is high. The patient underwent a PICC line placement and she was put on IV antibiotics, which was initially meropenem, which was changed to Invanz. Her culture indicated Klebsiella pneumoniae, which was resistant to several medications. The patient also was seen by Orthopedic for her right hip fracture, who recommended the patient to get mobilized without restriction. She can weightbear as tolerated. She might require a walker. However, if her pain persisted, recommended to follow up with Surgery and also would need a repeat x-ray. The patient is currently on aspirin and Plavix. I will continue that. The patient will be discharged. She will require 4 weeks of IV antibiotics. HOME MEDICATIONS: 1. Mirtazapine 50 mg at bedtime. 2. Protonix 40 mg daily. 3. Potassium 20 mg b.i.d. 4. Lisinopril 10 mg daily. 5. Lasix 20 mg daily. 6. Clopidogrel 75 daily. 7. Coreg 3.125 b.i.d. 8. Atorvastatin 20 mg at bedtime. 9. Amiodarone daily. 10. Invanz 1 g daily for 4 weeks. 11. Aspirin 81 mg daily. PHYSICAL EXAMINATION: VITAL SIGNS: Temperature 97.6, 71, 14, 93% on 2 L, 115/71. GENERAL: She is awake, alert, and oriented x3. Does not appear in distress. CV: S1, S2 present. No murmurs, rubs, or gallops. ABDOMEN: Soft and nontender. Bowel sounds are present x2. EXTREMITIES: Mild lower 1+ edema. Again, the patient will be discharged home. She will follow up with her primary and also with Infectious Disease. She will have frequent lab work done and also I have recommended to follow up with Cardiology for possible ICD. I also talked with the patient's family about discussing resuscitation status given her multiple acute urinary infection and also her low EF, which makes her at risk for arrhythmia, which she has had in the past. Based on her urinary staghorn per Infectious Disease note, Urology recommended against any intervention. Job ID: [id number]
--- NOTE | 2020-01-14 12:53 | EKG ---
Test Reason : NVD Blood Pressure : / mmHG Vent. Rate : 094 BPM Atrial Rate : 094 BPM P-R Int : 224 ms QRS Dur : 168 ms QT Int : 470 ms P-R-T Axes : 000 -31 107 degrees QTc Int : 587 ms Sinus rhythm with 1st degree A-V block Left axis deviation Left bundle branch block Abnormal ECG Confirmed by JACEY HURLEY ([id number]), television news video editor MOHAN LANDRUM ([id number]) on 01/14/2020 12:52:57 PM Referred By: BRINDA Confirmed By:JACEY Conway
== END 2020-01-11 15:48 | DRG 871 ==
LOC: ERS 09:59 → 2SW 12:45 → T4-B 01-04 01:48
PROVIDERS: ADMIT Family Medicine; ATTEND Internal Medicine
DX: A41.9 Sepsis, unspecified organism (principal); S72.001A Fracture of unspecified part of neck of right femur, initial encounter for closed fracture; G93.41 Metabolic encephalopathy; I50.23 Acute on chronic systolic (congestive) heart failure; E87.1 Hypo-osmolality and hyponatremia; N12 Tubulo-interstitial nephritis, not specified as acute or chronic; N17.9 Acute kidney failure, unspecified; E87.2 Acidosis; J90 Pleural effusion, not elsewhere classified; I25.10 Atherosclerotic heart disease of native coronary artery without angina pectoris; I11.0 Hypertensive heart disease with heart failure; N20.0 Calculus of kidney; Z91.81 History of falling
CPT/HCPCS: 36415; 36416; 36569; 51701; 71045; 74176; 80048; 80053; 81003; 81015; 82330; 82553; 82803; 83605; 83690; 83735; 84484; 85007; 85025; 85027; 87040; 87077; 87149; 87186; 87635; 93005; 93306; 96361; 96365; A4353; C1751; J0692; J0696; J2185; J3370; J3490; J7042; U0003